=== PATIENT | male | born 1955 | race African-American/Black ===

== ENCOUNTER 2017-04-29 12:16 | Emergency (ER) | payer MEDICAID ==
[~2017-04-29] VITALS: Ht 185.4 cm; Wt 90.7 kg
[~2017-04-29 12:16] MED LIST: CLON0.2T PO; DIPH50CA PO; FUR40T PO; HYDROCODON-ACETAMINOPHN PO; IBUP800T24 PO; LOSA100T33 PO; METO-158 PO
[2017-04-29] MEDS ORDERED: SODIUM CHLORIDE 0.9% 1,000 ML IV ONE ×2 (12:54)
[2017-04-29] MEDS ORDERED: chlorproMAZINE INECTION 25 MG in SODIUM CHL 0.9% 50 ML IV SCH (14:00)
[2017-04-29 14:14] LABS: Basophils # (auto) 0 uL; Basophils % (auto) 0.2 % (0.0-2.0); Eosinophils # (auto) 0 uL; Eosinophils % (auto) 0.4 % (0.0-7.0); Hematocrit 43.6 % (41.0-53.0); Hemoglobin 14.4 g/dL (13.5-17.5); Lymphocytes # (auto) 0.8 uL; Lymphocytes % (auto) 11.8 % (10.0-50.0); Mean Corpuscular Hemoglobin 30.5 pg (28.0-32.0); Mean Corpuscular Volume 92.5 fL (80.0-100.0); Monocytes # (auto) 0.8 uL; Monocytes % (auto) 12.5 % (0.0-12.0); Neutrophils # (auto) 4.8 uL; Neutrophils % (auto) 75.1 % (37.0-80.0); Platelet Count (auto) 216 10^3/uL (140-450); Red Blood Cells 4.71 10^6/uL (4.5-5.90); White Blood Cell 6.4 10^3/uL (4.4-10.8)
[2017-04-29 15:00] LABS: Alanine Aminotransferase 26 U/L (16-61); Albumin 3.3 g/dL (3.4-5.0); Alkaline Phosphatase 88 U/L (45-117); Anion Gap 11 (5-15); Aspartate Aminotransferase 25 U/L (15-37); BUN/Creatinine Ratio 16.7; Bilirubin, Total 0.5 mg/dL (0.2-1.0); Blood Urea Nitrogen 20 mg/dL (7-18); Calcium 8.4 mg/dL (8.5-10.1); Carbon Dioxide 23 mmol/L (21-32); Chloride 107 mmol/L (98-107); GFR African American 80 mL/min; GFR Non-African American 66 mL/min; Glucose 79 mg/dL (74-106); Magnesium 2.2 mg/dL (1.6-2.6); Potassium 3.6 mmol/L (3.5-5.1); Sodium 141 mmol/L (136-145); Total Protein 7.7 g/dL (6.4-8.2)
[2017-04-29] MEDS ORDERED: chlorproMAZINE HCL 25 MG TAB PO ONE (16:30)
[2017-04-29] MEDS ORDERED: LABETALOL HCL 200 MG TAB PO ONE (17:15)
[2017-04-29 17:51] VITALS: BP 157/87
== END 2017-04-29 17:59 | disposition home or self-care (01) ==
LOC: ER 12:16 → EDBD 12:16 → ER 17:59
DX: G40.909 Epilepsy, unspecified, not intractable, without status epilepticus (principal); E86.0 Dehydration; R00.0 Tachycardia, unspecified; R51 Headache; I12.9 Hypertensive chronic kidney disease with stage 1 through stage 4 chronic kidney disease, or unspecified chronic kidney disease; N18.9 Chronic kidney disease, unspecified; E78.5 Hyperlipidemia, unspecified; Z86.73 Personal history of transient ischemic attack (TIA), and cerebral infarction without residual deficits
CPT/HCPCS: 36415; 70450; 71045; 80053; 83605; 83735; 84484; 85025; 87040; 93005; 99285; J3230; J7030; Q0161

== ENCOUNTER 2017-04-29 22:04 | Emergency (ER) | payer MEDICAID ==
[~2017-04-29] VITALS: Ht 180.3 cm; Wt 81.6 kg
[2017-04-29 23:17] LABS: Basophils # (auto) 0 uL; Basophils % (auto) 0.3 % (0.0-2.0); Eosinophils # (auto) 0 uL; Eosinophils % (auto) 0.6 % (0.0-7.0); Hematocrit 42.8 % (41.0-53.0); Hemoglobin 14.2 g/dL (13.5-17.5); Lymphocytes # (auto) 0.7 uL; Lymphocytes % (auto) 11.8 % (10.0-50.0); Mean Corpuscular Hemoglobin 30.9 pg (28.0-32.0); Mean Corpuscular Hgb Conc. 33.2 g/dL (32.0-36.0); Mean Corpuscular Volume 93.1 fL (80.0-100.0); Monocytes # (auto) 0.7 uL; Monocytes % (auto) 10.7 % (0.0-12.0); Neutrophils # (auto) 4.7 uL; Neutrophils % (auto) 76.6 % (37.0-80.0); Platelet Count (auto) 223 10^3/uL (140-450); Red Cell Distribution Width 14.7 % (11.8-14.3); White Blood Cell 6.2 10^3/uL (4.4-10.8)
[2017-04-29 23:26] LABS: Alanine Aminotransferase 27 U/L (16-61); Albumin 3.2 g/dL (3.4-5.0); Alkaline Phosphatase 87 U/L (45-117); Anion Gap 8 (5-15); Aspartate Aminotransferase 40 U/L (15-37); BUN/Creatinine Ratio 14.9; Bilirubin, Total 0.8 mg/dL (0.2-1.0); Blood Urea Nitrogen 18 mg/dL (7-18); Calcium 8.8 mg/dL (8.5-10.1); Carbon Dioxide 24 mmol/L (21-32); Chloride 105 mmol/L (98-107); GFR African American 79 mL/min; GFR Non-African American 65 mL/min; Glucose 97 mg/dL (74-106); Magnesium 2.3 mg/dL (1.6-2.6); Potassium 4.9 mmol/L (3.5-5.1); Sodium 137 mmol/L (136-145); Total Protein 8.6 g/dL (6.4-8.2)
[2017-04-29 23:59] LABS: INR 1.05 (0.9-1.15); Partial Thromboplastin Time 26.2 sec (22.64-33.71); Prothrombin Time 11.4 sec (9.37-12.3)
[2017-04-30 03:30] VITALS: BP 147/82
== END 2017-04-30 05:30 | disposition home or self-care (01) ==
LOC: EDSEX 22:04 → ER 22:04 → EDBD 22:04 → ER 04-30 05:30
DX: R55 Syncope and collapse (principal); M54.2 Cervicalgia; R51 Headache; I12.9 Hypertensive chronic kidney disease with stage 1 through stage 4 chronic kidney disease, or unspecified chronic kidney disease; N18.9 Chronic kidney disease, unspecified; Z86.73 Personal history of transient ischemic attack (TIA), and cerebral infarction without residual deficits; Z88.1 Allergy status to other antibiotic agents
CPT/HCPCS: 36415; 70450; 72125; 80053; 83735; 83880; 84484; 85025; 85610; 85730; 93005

== ENCOUNTER 2018-01-29 11:35 | Inpatient (IN) | payer MEDICAID ==
[~2018-01-29] VITALS: Ht 175.3 cm; Wt 67.8 kg
[2018-01-29 12:18] LABS: Basophils # (auto) 0 uL; Basophils % (auto) 0.5 % (0.0-2.0); Eosinophils # (auto) 0 uL; Eosinophils % (auto) 0.4 % (0.0-7.0); Hematocrit 48.1 % (41.0-53.0); Hemoglobin 15.8 g/dL (13.5-17.5); Lymphocytes # (auto) 1.2 uL; Lymphocytes % (auto) 14.5 % (10.0-50.0); Mean Corpuscular Hemoglobin 30.9 pg (28.0-32.0); Mean Corpuscular Hgb Conc. 32.8 g/dL (32.0-36.0); Mean Corpuscular Volume 94.3 fL (80.0-100.0); Monocytes # (auto) 0.6 uL; Monocytes % (auto) 6.8 % (0.0-12.0); Neutrophils # (auto) 6.6 uL; Neutrophils % (auto) 77.8 % (37.0-80.0); Platelet Count (auto) 265 10^3/uL (140-450); Red Cell Distribution Width 15.5 % (11.8-14.3); White Blood Cell 8.5 10^3/uL (4.4-10.8)
[2018-01-29 12:30] LABS: Albumin 4.2 g/dL (3.4-5.0); Anion Gap 11 (5-15); BUN/Creatinine Ratio 15.3; Blood Urea Nitrogen 22 mg/dL (7-18); Calcium 9.5 mg/dL (8.5-10.1); Carbon Dioxide 27 mmol/L (21-32); Chloride 103 mmol/L (98-107); GFR African American 64 mL/min; GFR Non-African American 53 mL/min; Glucose 82 mg/dL (74-106); Potassium 3.4 mmol/L (3.5-5.1); Sodium 141 mmol/L (136-145)
[2018-01-29 12:38] LABS: Alanine Aminotransferase 40 U/L (16-61); Alkaline Phosphatase 103 U/L (45-117); Aspartate Aminotransferase 39 U/L (15-37); Bilirubin, Total 0.6 mg/dL (0.2-1.0); Total Protein 9.8 g/dL (6.4-8.2)
[2018-01-29] MEDS ORDERED: ASPirin 81 mg TAB PO ONE (14:45)
[2018-01-29] MEDS ORDERED: cloNIDine HCL 0.1 MG TAB PO ONE (15:00)
[2018-01-29 15:24] LABS: INR 1.07 (0.9-1.15); Partial Thromboplastin Time 27.8 sec (23.78-33.04); Prothrombin Time 11.4 sec (9.27-12.13)
[2018-01-29] MEDS ORDERED: hydrALAZINE HCL 20 MG/ML VL IV ONE (17:00)
[2018-01-29] MEDS ORDERED: LABETALOL HCL 5 MG/ML ML 20ML VIAL IV ONE (17:15)
[2018-01-29] MEDS ORDERED: TEMAZEPAM 15 MG CAP PO PRN (17:45)
[2018-01-29] MEDS ORDERED: NITROGLYCERIN 0.4 MG SL TAB SL PRN (17:45)
[2018-01-29] MEDS ORDERED: LORazepam 0.5 MG TAB PO PRN (17:45)
[2018-01-29] MEDS ORDERED: HYDROcodone-ACET 5/325MG TAB PO PRN (17:45)
[2018-01-29] MEDS ORDERED: MORPHINE SULFATE 4 MG/ML SYR/VIAL IV PRN ×2 (17:45)
[2018-01-29] MEDS ORDERED: LACTULOSE 20Gm/30ML SOLN PO PRN (17:45)
[2018-01-29] MEDS ORDERED: ONDANSETRON HCL 4 MG/2 ML VIAL IV PRN (17:45)
[2018-01-29] MEDS ORDERED: IOHEXOL 350 MG/ML 100ML IJ ONE (18:24)
[2018-01-29 18:54] LABS: Urine Amorphous Crystal FEW /hpf (None Seen); Urine Bacteria FEW /hpf (None Seen); Urine Blood Negative /uL (Negative); Urine Mucus FEW (None Seen); Urine Specific Gravity 1.018 (1.001-1.035); Urine WBC 4 /hpf (0 - 3)
[2018-01-29 19:05] LABS: Alcohol, Urine < 3.0 mg/dL (0-5); Amphetamine Screen, Urine NEGATIVE (NEGATIVE); Barbiturate Scree,Urine NEGATIVE (NEGATIVE); Benzodiazephine Screen, Urine NEGATIVE (NEGATIVE); Cannabinoid Screen, Urine NEGATIVE (NEGATIVE); Cocaine Screen, Urine NEGATIVE (NEGATIVE); Opiate Scree,Urine NEGATIVE (NEGATIVE); Phencyclidine Screen, Urine NEGATIVE (NEGATIVE)
[2018-01-29] MEDS: METOPROLOL TARTRATE 50 MG TAB PO SCH ×2 (19:13→21:56)
[2018-01-29] MEDS: SODIUM CHLORIDE 0.9% 1,000 ML IV SCH (19:16)
[2018-01-29] MEDS: SODIUM CHLOR 0.9% PF (SALINE LOCK) 10ML VIAL/SYR IV SCH (21:56)
[2018-01-29] MEDS: ATORVASTATIN 20 MG TAB PO SCH (21:56)
[2018-01-29] MEDS: cloNIDine HCL 0.1 MG TAB PO SCH (21:56)
[2018-01-29 22:30] VITALS: BP 140/97
[2018-01-29 23:20] VITALS: BP 140/97
[2018-01-30 05:00] VITALS: BP 149/90
[2018-01-30] MEDS: SODIUM CHLOR 0.9% PF (SALINE LOCK) 10ML VIAL/SYR IV SCH ×3 (06:06→22:30)
[2018-01-30] MEDS: cloNIDine HCL 0.1 MG TAB PO SCH ×3 (06:11→22:32)
[2018-01-30 06:22] LABS: Calcium 8.6 mg/dL (8.5-10.1); Potassium 3.7 mmol/L (3.5-5.1)
[2018-01-30 06:26] LABS: Bilirubin, Total 0.5 mg/dL (0.2-1.0); Total Protein 7.5 g/dL (6.4-8.2)
[2018-01-30] MEDS: SODIUM CHLORIDE 0.9% 1,000 ML IV SCH ×2 (06:57→20:12)
[2018-01-30 07:45] VITALS: BP 132/81
[2018-01-30] MEDS ORDERED: ENALAPRIL MALEATE 10 MG TAB PO SCH (10:00)
[2018-01-30] MEDS ORDERED: PATIENTS OWN MEDICATION (Losartan Potassium & Hydrochlo (Losartan Potassium/Hydroc) 1 TAB) PO SCH (10:00)
[2018-01-30] MEDS: ASPirin 81 mg TAB PO SCH (11:10)
[2018-01-30] MEDS: PANTOPRAZOLE 40 MG TAB PO SCH (11:11)
[2018-01-30] MEDS: ENOXAPARIN SOD 40 MG/0.4 ML SYRINGE SC SCH (11:17)
[2018-01-30] MEDS: METOPROLOL TARTRATE 50 MG TAB PO SCH ×2 (11:20→22:33)
[2018-01-30] MEDS ORDERED: IOHEXOL 350 MG/ML 100ML IJ ONE (12:11)
[2018-01-30 12:13] VITALS: BP 158/102
[2018-01-30] MEDS ORDERED: TRAM50TA2 (12:40)
[2018-01-30] MEDS ORDERED: MET50T (12:40)
[2018-01-30] MEDS ORDERED: DIPH25CA46 (12:40)
[2018-01-30] MEDS: ACETAMINOPHEN 500 MG TAB PO PRN (14:22)
[2018-01-30 17:00] VITALS: BP 128/81
[2018-01-30 20:20] VITALS: BP 126/77
[2018-01-30 21:24] VITALS: BP 126/77
[2018-01-30] MEDS: ATORVASTATIN 20 MG TAB PO SCH (22:32)
[2018-01-31 04:54] VITALS: BP 110/61
[2018-01-31] MEDS ORDERED: INFLUENZA QUAD 2018-2019 0.5 ML SYRG IM ONE (05:45)
[2018-01-31] MEDS: SODIUM CHLOR 0.9% PF (SALINE LOCK) 10ML VIAL/SYR IV SCH ×3 (06:17→22:09)
[2018-01-31] MEDS: cloNIDine HCL 0.1 MG TAB PO SCH ×3 (06:19→22:11)
[2018-01-31] MEDS: SODIUM CHLORIDE 0.9% 1,000 ML IV SCH ×2 (06:25→22:52)
[2018-01-31 08:57] VITALS: BP 113/77
[2018-01-31] MEDS: LOSARTAN POTASSIUM 50 MG TAB PO SCH (10:00)
[2018-01-31] MEDS: PANTOPRAZOLE 40 MG TAB PO SCH (10:39)
[2018-01-31] MEDS: ASPirin 81 mg TAB PO SCH (10:39)
[2018-01-31] MEDS: METOPROLOL TARTRATE 50 MG TAB PO SCH ×2 (10:40→22:12)
[2018-01-31] MEDS: ENOXAPARIN SOD 40 MG/0.4 ML SYRINGE SC SCH (10:41)
[2018-01-31] MEDS: ACETAMINOPHEN 500 MG TAB PO PRN (11:38)
[2018-01-31 12:55] VITALS: BP 118/79
[2018-01-31 17:21] VITALS: BP 135/78
[2018-01-31 18:00] VITALS: BP 160/95
[2018-01-31 22:00] VITALS: BP 160/95
[2018-01-31] MEDS: ATORVASTATIN 20 MG TAB PO SCH (22:11)
[2018-02-01 05:02] VITALS: BP 147/92
[2018-02-01] MEDS: cloNIDine HCL 0.1 MG TAB PO SCH ×2 (06:17→14:00)
[2018-02-01] MEDS: SODIUM CHLOR 0.9% PF (SALINE LOCK) 10ML VIAL/SYR IV SCH ×2 (06:17→14:00)
[2018-02-01 07:43] VITALS: BP 139/85
[2018-02-01] MEDS: LOSARTAN POTASSIUM 50 MG TAB PO SCH (10:00)
[2018-02-01] MEDS: ENOXAPARIN SOD 40 MG/0.4 ML SYRINGE SC SCH (10:17)
[2018-02-01] MEDS: PANTOPRAZOLE 40 MG TAB PO SCH (10:18)
[2018-02-01] MEDS: ASPirin 81 mg TAB PO SCH (10:18)
[2018-02-01] MEDS: ACETAMINOPHEN 500 MG TAB PO PRN (10:18)
[2018-02-01] MEDS: METOPROLOL TARTRATE 50 MG TAB PO SCH (10:18)
[2018-02-01 11:41] VITALS: BP 169/85
[2018-02-01] MEDS: SODIUM CHLORIDE 0.9% 1,000 ML IV SCH (12:12)
[2018-02-01 15:22] VITALS: BP 139/85
[2018-02-01 15:32] VITALS: BP 139/85
[2018-02-01 16:50] VITALS: BP 156/93
== END 2018-02-01 16:42 | disposition home or self-care (01) | DRG 351 ==
LOC: ER 11:35 → EDBD 11:35 → TELE 11:36 → TELE-EAST 22:19
PROVIDERS: ADMIT Internal Medicine; ATTEND Internal Medicine Pulmonary Disease
DX: M79.18 Myalgia, other site (principal); R56.9 Unspecified convulsions; E44.1 Mild protein-calorie malnutrition; I16.0 Hypertensive urgency; I69.351 Hemiplegia and hemiparesis following cerebral infarction affecting right dominant side; E78.5 Hyperlipidemia, unspecified; I10 Essential (primary) hypertension; Z82.49 Family history of ischemic heart disease and other diseases of the circulatory system; Z91.14 Patient's other noncompliance with medication regimen; Z88.8 Allergy status to other drugs, medicaments and biological substances; Z68.22 Body mass index [BMI] 22.0-22.9, adult
CPT/HCPCS: 36415; 70450; 71045; 71275; 80053; 80061; 80307; 81001; 82550; 83735; 83880; 84443; 84484; 85025; 85379; 85610; 85652; 85730; 86141; 87081; 93005; 93306; 96360; 97110; 97116; 97163; 97530

== ENCOUNTER 2018-10-22 00:44 | Inpatient (IN) | payer MEDICAID ==
[~2018-10-22] VITALS: Ht 175.3 cm; Wt 71.0 kg
[~2018-10-22 00:44] MED LIST changes: +DIPH25CA46; -IBUP800T24 PO; -METO-158 PO; +TRAM50TA2
[2018-10-22 01:52] LABS: Basophils # (auto) 0 uL; Basophils % (auto) 0.5 % (0.0-2.0); Eosinophils # (auto) 0.1 uL; Eosinophils % (auto) 1.1 % (0.0-7.0); Hematocrit 39.6 % (41.0-53.0); Hemoglobin 13.1 g/dL (13.5-17.5); Lymphocytes # (auto) 0.8 uL; Lymphocytes % (auto) 12.5 % (10.0-50.0); Mean Corpuscular Hemoglobin 31.1 pg (28.0-32.0); Mean Corpuscular Hgb Conc. 33.1 g/dL (32.0-36.0); Mean Corpuscular Volume 93.8 fL (80.0-100.0); Monocytes # (auto) 0.6 uL; Monocytes % (auto) 9.5 % (0.0-12.0); Neutrophils # (auto) 5.1 uL; Neutrophils % (auto) 76.4 % (37.0-80.0); Platelet Count (auto) 184 10^3/uL (140-450); Red Blood Cells 4.22 10^6/uL (4.5-5.90); White Blood Cell 6.7 10^3/uL (4.4-10.8)
[2018-10-22 02:11] LABS: Albumin 3.2 g/dL (3.4-5.0); Anion Gap 12 (5-15); BUN/Creatinine Ratio 16.1; Blood Urea Nitrogen 24 mg/dL (7-18); Calcium 8.8 mg/dL (8.5-10.1); Carbon Dioxide 24 mmol/L (21-32); Chloride 107 mmol/L (98-107); GFR African American 62 mL/min; GFR Non-African American 51 mL/min; Glucose 79 mg/dL (74-106); Magnesium 1.9 mg/dL (1.6-2.6); Sodium 143 mmol/L (136-145)
[2018-10-22 02:16] LABS: Alanine Aminotransferase 22 U/L (16-61); Alkaline Phosphatase 83 U/L (45-117); Aspartate Aminotransferase 32 U/L (15-37); Bilirubin, Total 0.5 mg/dL (0.2-1.0); Total Protein 7.7 g/dL (6.4-8.2)
[2018-10-22 02:26] LABS: Potassium 2.9 mmol/L (3.5-5.1)
[2018-10-22] MEDS ORDERED: POTASSIUM EFFERVESENT TAB 25 MEQ PO ONE (04:45)
[2018-10-22 07:17] LABS: Urine WBC None Seen /hpf (0 - 3)
[2018-10-22 07:52] LABS: Urine Bacteria MANY /hpf (None Seen); Urine Blood TRACE /uL (Negative); Urine Mucus FEW (None Seen); Urine Specific Gravity 1.026 (1.001-1.035)
[2018-10-22] MEDS ORDERED: MORPHINE SULF INJ 2 MG/ML SYRINGE 1ML IV ONE (11:00)
[2018-10-22] MEDS ORDERED: ONDANSETRON HCL 4 MG/2 ML VIAL IV ONE (11:00)
[2018-10-22] MEDS ORDERED: ALBUTEROL SULF 2.5 MG/0.5ML(0.5%) NEB SOLN NEB PRN (11:30)
[2018-10-22] MEDS ORDERED: ACETAMINOPHEN 500 MG TAB PO PRN (11:30)
[2018-10-22] MEDS ORDERED: NITROGLYCERIN 0.4 MG SL TAB SL PRN (11:30)
[2018-10-22] MEDS ORDERED: IPRATROPIUM BROM 0.5 MG/2.5ML INH SOL NEB PRN (11:30)
[2018-10-22] MEDS ORDERED: ONDANSETRON HCL 4 MG/2 ML VIAL IV PRN (11:30)
[2018-10-22] MEDS ORDERED: MORPHINE SULF INJ 2 MG/ML SYRINGE 1ML IV PRN ×2 (11:30)
[2018-10-22] MEDS: cefTRIAXone 1GM/50ML D5W 50 ML IV SCH (11:57)
[2018-10-22] MEDS: SODIUM CHLORIDE 0.9% 1,000 ML IV SCH ×2 (11:57→21:31)
[2018-10-22] MEDS: ENSURE CLEAR Mixed Berry 8oz Carton PO SCH ×2 (12:00→18:05)
[2018-10-22 12:41] LABS: INR 1.06 (0.9-1.15); Partial Thromboplastin Time 29.5 sec (23.64-32.05)
--- NOTE | 2018-10-22 13:50 | NUR ---
PATIENT ARRIVED TO UNIT PATIENT ALERT AND ORIENTED WITH PERIODS OF CONFUSION IN REGARDS TO COMPREHENSION. POOR HISTORIAN. ORIENTED PATIENT TO UNIT, STAFF, CALL LIGHT AND POC. WILL CONTINUE TO MONITOR PATIENT AND RE ORIENT, WELL RE ENFORCE TEACHING. PATIENT DENIES PAIN, SOB OR ANY DISTRESS AT THIS TIME. WILL CONTINUE TO MONITOR
[2018-10-22 15:36] VITALS: BP 139/79
--- NOTE | 2018-10-22 15:53 | NUR ---
PAIGE MADE AWARE POTASSIUM 2.9.
--- NOTE | 2018-10-22 16:13 | NUR ---
ASSESSED PT FOR PRN MED NEB BREATHING TX, PT ON RA WITH A SPO2 99%, HR 82, RR 16. NO SOB NOTED NO RESPIRATORY DISTRESS NOTED. PT MADE AWARE TO PAGE RN IF SOB. WILL CONTINUE TO MONITOR PT.
[2018-10-22] MEDS: hydrALAZINE HCL 20 MG/ML VL IV SCH ×2 (16:45→18:00)
[2018-10-22 16:48] VITALS: BP 139/86
--- NOTE | 2018-10-22 19:12 | NUR ---
END OF SHIFT NOTE PATIENT UP IN BED EATING. DENIES PAIN SOB OR ANY DISTRESS AT THIS TIME. BED IS IN LOWEST LOCKED POSITION CALL LIGHT WITHIN REACH ENDORSE CARE TO NOC RN
--- NOTE | 2018-10-22 21:20 | NUR ---
RT NOTE: PT ASSESSED FOR PRN MED NEB TX @ THIS TIME. TX NOT INDICATED. SPO02 98% ON 2L NASAL CANNULA, HR 96, DIMINISHED BS. NO SOB OR DISTRESS NOTED @ THIS TIME.
[2018-10-22] MEDS: HYDROcodone-ACET 5/325MG TAB PO PRN (21:32)
[2018-10-22] MEDS: DOCUSATE SOD 100 MG CAP PO SCH (21:32)
[2018-10-22 21:44] LABS: Alanine Aminotransferase 21 U/L (16-61); Albumin 2.6 g/dL (3.4-5.0); Anion Gap 11 (5-15); Aspartate Aminotransferase 39 U/L (15-37); BUN/Creatinine Ratio 17.3; Blood Urea Nitrogen 22 mg/dL (7-18); Calcium 7.9 mg/dL (8.5-10.1); Carbon Dioxide 22 mmol/L (21-32); Chloride 111 mmol/L (98-107); GFR African American 74 mL/min; GFR Non-African American 61 mL/min; Glucose 93 mg/dL (74-106); Potassium 3.4 mmol/L (3.5-5.1); Sodium 144 mmol/L (136-145)
[2018-10-22 21:46] LABS: Alkaline Phosphatase 72 U/L (45-117); Bilirubin, Total 0.2 mg/dL (0.2-1.0); Total Protein 6.7 g/dL (6.4-8.2)
[2018-10-22 22:00] VITALS: BP 126/86
--- NOTE | 2018-10-22 23:30 | NUR ---
RECEIVED A CALL FROM A FAMILY, ZACH
[2018-10-23] MEDS: SODIUM CHLORIDE 0.9% 1,000 ML IV SCH ×2 (03:05→17:22)
--- NOTE | 2018-10-23 04:00 | NUR ---
Pt stood up close to the bed, noted to be confused, assisted back on bed and turned on the bed alarm. Re-oriented.
[2018-10-23 05:00] VITALS: BP 140/85
--- NOTE | 2018-10-23 05:00 | NUR ---
Morning care done, linens and gown changed.
[2018-10-23] MEDS: hydrALAZINE HCL 20 MG/ML VL IV SCH ×5 (05:24→23:57)
[2018-10-23 07:20] LABS: Basophils # (auto) 0 uL; Basophils % (auto) 0.5 % (0.0-2.0); Eosinophils # (auto) 0.2 uL; Eosinophils % (auto) 3.6 % (0.0-7.0); Hematocrit 37.3 % (41.0-53.0); Hemoglobin 12.3 g/dL (13.5-17.5); Lymphocytes # (auto) 1.3 uL; Lymphocytes % (auto) 26.7 % (10.0-50.0); Mean Corpuscular Hgb Conc. 32.9 g/dL (32.0-36.0); Mean Corpuscular Volume 94.2 fL (80.0-100.0); Monocytes # (auto) 0.4 uL; Monocytes % (auto) 8.3 % (0.0-12.0); Neutrophils % (auto) 60.9 % (37.0-80.0); Nucleated Red Blood Cells % 0.1 %; Platelet Count (auto) 170 10^3/uL (140-450); Red Blood Cells 3.96 10^6/uL (4.5-5.90); Red Cell Distribution Width 16.8 % (11.8-14.3); White Blood Cell 4.9 10^3/uL (4.4-10.8)
[2018-10-23 07:28] LABS: Anion Gap 10 (5-15); Blood Urea Nitrogen 22 mg/dL (7-18); Calcium 8.3 mg/dL (8.5-10.1); Carbon Dioxide 22 mmol/L (21-32); Chloride 112 mmol/L (98-107); Glucose 82 mg/dL (74-106); Potassium 3.7 mmol/L (3.5-5.1); Sodium 144 mmol/L (136-145)
[2018-10-23 07:29] LABS: BUN/Creatinine Ratio 19.3; GFR African American 84 mL/min; GFR Non-African American 69 mL/min
[2018-10-23] MEDS: ENSURE CLEAR Mixed Berry 8oz Carton PO SCH ×3 (08:00→18:02)
[2018-10-23 08:39] VITALS: BP 136/79
[2018-10-23] MEDS: cefTRIAXone 1GM/50ML D5W 50 ML IV SCH (09:10)
[2018-10-23] MEDS: HYDROCHLOROTHIAZIDE PO SCH (10:00)
[2018-10-23] MEDS: LOSARTAN POTASSIUM PO SCH (10:00)
[2018-10-23] MEDS: ENOXAPARIN SOD 40 MG/0.4 ML SYRINGE SC SCH (11:01)
[2018-10-23] MEDS: MULTIPLE VITAMIN TAB PO SCH (11:01)
[2018-10-23] MEDS: DOCUSATE SOD 100 MG CAP PO SCH ×2 (11:01→21:54)
[2018-10-23] MEDS: FAMOTIDINE 20 MG TAB PO SCH (11:01)
[2018-10-23 17:16] VITALS: BP 146/79
[2018-10-23 22:00] VITALS: BP 129/76
--- NOTE | 2018-10-23 22:23 | NUR ---
Respiratory note: ASSESSED PT FOR PRN MED NEB AT THIS TIME, PT DENIES SOB AT THIS TIME, NO RESP DISTRESS NOTED, NO TX INDICATED, PULSE OX 98% ON RA, HR 112, RR 18, BILATERAL BS CLEAR DECREASED.
[2018-10-24 05:00] VITALS: BP 148/94
[2018-10-24 05:40] LABS: BUN/Creatinine Ratio 16.2; Calcium 8.7 mg/dL (8.5-10.1); Potassium 3.2 mmol/L (3.5-5.1)
[2018-10-24] MEDS: hydrALAZINE HCL 20 MG/ML VL IV SCH ×3 (06:38→17:25)
[2018-10-24] MEDS: SODIUM CHLORIDE 0.9% 1,000 ML IV SCH ×2 (06:41→12:52)
[2018-10-24] MEDS: ENSURE CLEAR Mixed Berry 8oz Carton PO SCH ×3 (07:48→17:25)
--- NOTE | 2018-10-24 08:00 | NUR ---
Opening Shift Note Assumed care of patient, resting with eyes closes but wakes easily to sound. No S/S of distress/SOB or pain. Instructed on POC and to call for assist PRN, will continue to monitor for changes Q1hr and PRN.
[2018-10-24] MEDS: cefTRIAXone 1GM/50ML D5W 50 ML IV SCH (08:57)
[2018-10-24 09:00] VITALS: BP 153/99
[2018-10-24] MEDS: FAMOTIDINE 20 MG TAB PO SCH (09:48)
[2018-10-24] MEDS: ENOXAPARIN SOD 40 MG/0.4 ML SYRINGE SC SCH (09:48)
[2018-10-24] MEDS: HYDROCHLOROTHIAZIDE PO SCH (09:49)
[2018-10-24] MEDS: LOSARTAN POTASSIUM PO SCH (09:49)
[2018-10-24] MEDS: DOCUSATE SOD 100 MG CAP PO SCH ×2 (09:49→21:22)
[2018-10-24] MEDS: MULTIPLE VITAMIN TAB PO SCH (09:49)
[2018-10-24] MEDS: HYDROcodone-ACET 5/325MG TAB PO PRN ×2 (10:48→17:07)
[2018-10-24 13:00] VITALS: BP 143/101
--- NOTE | 2018-10-24 14:43 | NUR ---
Respiratory note: PT ASSESSED FOR PRN MED NEB TX. TX IS NOT INDICATED AT THIS TIME. NO SOB NOTED ON RA, POX 99%, HR 129, RR 16. B/S ARE CLEAR AND DIMINISHED THROUGHOUT.
[2018-10-24] MEDS ORDERED: POTASSIUM CHL 20 Meq TABLET PO ONE (15:30)
--- NOTE | 2018-10-24 16:41 | NUR ---
I faxed home health order to [facility] (phone # [phone]---fax number [phone]) requesting authorization for [facility].
--- NOTE | 2018-10-24 16:45 | NUR ---
Per consult for home health safety evaluation. Contacted [facility] Ph: ( [phone]) Fax: ) faxed medical records. Per Rosie pt has been accepted and service to start within 4hrs upon d/c. Informed EFRAÍN Peraza for authorization for [facility] Addendum: 10/24/18 at 1647 by MARCELINA HERMAN Amended: Links added.
[2018-10-24 17:00] VITALS: BP 142/104
--- NOTE | 2018-10-24 19:50 | NUR ---
OPENING NOTE ASSUMED PT CARE FROM DAY SHIFT NURSE. PT IS A/OX2-3, DEFICIENT TO SITUATION AT TIMES. PT IS QUIETLY LAYING IN BED WITH NO S/S OF DISTRESS OR SOB. DISCUSSED POC WITH PT. SAFETY MEASURES MAINTAINED WITH SIDE RAILS UP, BED IN LOWEST POSITION AND CALL LIGHT WITHIN REACH. WILL CONTINUE TO MONITOR FOR CHANGES Q1HR AND PRN.
--- NOTE | 2018-10-24 20:55 | NUR ---
HIGH BP PHYSICAL SCIENCE TEACHER ALERTED ME THAT PTS BP WAS 165/111 AND STATED THAT HE WAS IN SOME PAIN. ADMINISTERED AVAILABLE PAIN MEDICATION TO PT TO SEE IF THE ELEVATED BP WAS R/T THE PAIN. WILL REASSESS.
--- NOTE | 2018-10-24 21:45 | NUR ---
RECHECK BP BLOOD PRESSURE AT THIS TIME IS STILL ELEVATED; 159/107 UPON TAKING IT MANUALLY. PAGED HOSPITALIST
[2018-10-24 22:00] VITALS: BP 165/111
--- NOTE | 2018-10-24 22:50 | NUR ---
HOSPITALIST CALLED BACK GAVE ORDERS, READ BACK AND VERIFIED ORDERS, IMPUTED ORDERS. WILL FOLLOW THROUGH WITH GIVEN ORDERS
[2018-10-24] MEDS ORDERED: METOPROLOL TARTRATE 1MG/1ML-5ML VIAL IV ONE (23:00)
[2018-10-25] MEDS: hydrALAZINE HCL 20 MG/ML VL IV SCH ×3 (00:31→12:10)
[2018-10-25] MEDS: HYDROcodone-ACET 5/325MG TAB PO PRN (01:33)
[2018-10-25 05:00] VITALS: BP 153/109
--- NOTE | 2018-10-25 07:09 | NUR ---
CLOSING NOTE CARE ENDORSED TO DAY SHIFT NURSE SUMMER. PT IS IN BED WITH NO S/S OF DISTRESS OR SOB.
--- NOTE | 2018-10-25 07:15 | NUR ---
Opening Note Received report from retail shift leader RN. Patient is resting in bed, easy to wake by calling name. No signs or symptoms of distress noted at this time. Patient denies pain at this time. Patient on room air, respirations even and unlabored. Reviewed plan of care with patient, patient verbalized understanding. Bed in low and locked position, call light within reach. Will continue to monitor Q1 hour and PRN.
--- NOTE | 2018-10-25 08:41 | NUR ---
Respiratory note: ASSESSED PT FOR PRN TX PT WAS AWAKE AND ALERT SITTING AT THE EDGE OF THE BED, NO RESP DISTRESS NOTED. HR 121, RR 16, SPO2 97% ON ROOM AIR. BS ARE CLEAR T/O, NO INDICATION FOR TX AT THIS TIME. PT KNOWS TO HAVE RT PAGED IF TX IS NEEDED.
[2018-10-25 09:00] VITALS: BP 144/80
[2018-10-25] MEDS: cefTRIAXone 1GM/50ML D5W 50 ML IV SCH (09:51)
[2018-10-25] MEDS: FAMOTIDINE 20 MG TAB PO SCH (09:52)
[2018-10-25] MEDS: MULTIPLE VITAMIN TAB PO SCH (09:52)
[2018-10-25] MEDS: DOCUSATE SOD 100 MG CAP PO SCH ×2 (09:52→21:34)
[2018-10-25] MEDS: ENOXAPARIN SOD 40 MG/0.4 ML SYRINGE SC SCH (09:53)
[2018-10-25] MEDS: ENSURE CLEAR Mixed Berry 8oz Carton PO SCH ×3 (09:53→17:14)
[2018-10-25] MEDS ORDERED: LOSARTAN POTASSIUM 25 MG TAB PO SCH (10:00)
[2018-10-25] MEDS: METOPROLOL SUCCINATE XL 50 MG TAB PO SCH (10:00)
--- NOTE | 2018-10-25 10:10 | NUR ---
Patient ambulated with PT Patient ambulated in hallway with physical therapy, standby assist with cane. Patient tolerated well.
[2018-10-25 11:05] LABS: BUN/Creatinine Ratio 14.2; Calcium 9.7 mg/dL (8.5-10.1); Magnesium 2.1 mg/dL (1.6-2.6); Potassium 3.9 mmol/L (3.5-5.1)
--- NOTE | 2018-10-25 12:40 | NUR ---
Nutrition Assessment Notes please see attached link for complete assessment Est. Needs BW [id number] kcal (25-30 kcal/kgBW), 68-81 gms pro (1.0-1.2 gms/kgBW). Will continue to monitor pertinent labs and reassess nutrient need prn Addendum: 10/25/18 at [address] Amended: Links added.
[2018-10-25 13:00] VITALS: BP 140/84
--- NOTE | 2018-10-25 13:05 | NUR ---
Patient removed IV Patient states he accidently pulled out his IV from the left hand. Area cleaned and pressure dressing applied. Will start a new IV. Will continue to monitor Q1 hour and PRN.
[2018-10-25 13:11] VITALS: BP 161/92
--- NOTE | 2018-10-25 13:59 | NUR ---
IV insertion IV access obtained, via clean sterile technique by inserting 24 gauge catheter at after one attempt to the right wrist. IV secured properly. No trauma to site. Patient tolerated procedure well. Will continue to monitor Q1 hour and PRN.
[2018-10-25] MEDS ORDERED: MORPHINE SULF INJ 2 MG/ML SYRINGE 1ML IV PRN ×3 (14:30→14:45)
[2018-10-25] MEDS ORDERED: HYDROcodone-ACET 5/325MG TAB PO PRN (14:30)
--- NOTE | 2018-10-25 15:10 | NUR ---
Report given to Falvio JORGE. New orders received to place patient on monitor technician. Care endorsed.
[2018-10-25 17:00] VITALS: BP 159/96
[2018-10-25 19:11] LABS: Urine Bacteria NONE SEEN /hpf (None Seen); Urine Blood Negative /uL (Negative); Urine WBC 2 /hpf (0 - 3)
--- NOTE | 2018-10-25 19:50 | NUR ---
Respiratory note: PT RECIEVED ON RA. PT AWAKE AND ALERT AT THIS TIME. NO RESP DISTRESS NOTED. SPO2 96%, HR 109, RR 20. BS CLR T/O. NO PRN TX INDICATED AT THIS TIME.
--- NOTE | 2018-10-25 19:55 | NUR ---
RECEIVED PATIENT FROM DAY SHIFT RN. PATIENT SITTING AT THE SIDE OF BED. NO S/S OF DISTRESS NOTED. DENIED PAIN FOR NOW. POC INSTRUCTED AND ENCOURAGED PATIENT TO CALL FOR VISUAL EFFECTS EDITOR IF NEEDED. BED IN LOWEST POSITION WITH SIDE RAILS UP X 2. CALL BRYANT WITHIN REACH. ALARM ON. CONTINUE TO MONITOR FOR CHANGES Q1H AND PRN.
[2018-10-25] MEDS: cloNIDine HCL 0.1 MG TAB PO SCH (21:34)
[2018-10-25] MEDS: SODIUM CHLOR 0.9% PF (SALINE LOCK) 10ML VIAL/SYR IV SCH (21:34)
--- NOTE | 2018-10-25 21:40 | NUR ---
ORAL MEDICATION GIVEN ORDERED. PATIENT SWALLOWED WELL. NO S/S OF ASPIRATION NOTED. CONTINUE TO MONITOR.
--- NOTE | 2018-10-25 21:58 | NUR ---
SIDE RAILS PADDED NOW. CONTINUE CARE.
[2018-10-25 22:15] VITALS: BP 149/110
--- NOTE | 2018-10-25 22:32 | NUR ---
REASSESSED BP 119/69, HR 65. CONTINUE TO MONITOR.
--- NOTE | 2018-10-26 01:33 | NUR ---
PATIENT SLEEPING. NO S/S OF DISTRESS NOTED. CONTINUE CARE.
[2018-10-26 05:38] VITALS: BP 125/83
[2018-10-26] MEDS: cloNIDine HCL 0.1 MG TAB PO SCH ×3 (06:20→21:31)
[2018-10-26] MEDS: SODIUM CHLOR 0.9% PF (SALINE LOCK) 10ML VIAL/SYR IV SCH ×3 (06:20→21:31)
[2018-10-26] MEDS: ENSURE CLEAR Mixed Berry 8oz Carton PO SCH ×3 (08:00→17:53)
--- NOTE | 2018-10-26 08:23 | NUR ---
ASSESSED PT FOR PRN TX. HR 74, SPO2 97% RA BSC T/O, RR 16. PATIENT ASLEEP WITH NO RESP DISTRESS NOTED. PRN TX NOT INDICATED AT THIS TIME.
[2018-10-26 09:00] VITALS: BP 131/76
[2018-10-26] MEDS: cefTRIAXone 1GM/50ML D5W 50 ML IV SCH (09:34)
[2018-10-26] MEDS: METOPROLOL SUCCINATE XL 50 MG TAB PO SCH (09:36)
[2018-10-26] MEDS: ENOXAPARIN SOD 40 MG/0.4 ML SYRINGE SC SCH (09:37)
[2018-10-26] MEDS: MULTIPLE VITAMIN TAB PO SCH (09:38)
[2018-10-26] MEDS: LOSARTAN POTASSIUM 50 MG TAB PO SCH (09:38)
[2018-10-26] MEDS: FAMOTIDINE 20 MG TAB PO SCH (09:38)
[2018-10-26] MEDS: DOCUSATE SOD 100 MG CAP PO SCH ×2 (09:38→21:30)
[2018-10-26 13:00] VITALS: BP 100/54
[2018-10-26 17:00] VITALS: BP 132/78
--- NOTE | 2018-10-26 18:27 | NUR ---
Respiratory note: PT RECIEVED ON RA. PT AWAKE AND ALERT AT THIS TIME. NO RESP DISTRESS NOTED. SPO2 100%, HR 75, RR 16 . BS CLR T/O. NO PRN TX INDICATED AT THIS TIME.
--- NOTE | 2018-10-26 19:29 | NUR ---
RECEIVED PATIENT FROM DAY SHIFT RN. PATIENT RESTING IN BED. NO S/S OF DISTRESS NOTED. DENIED PAIN FOR NOW. POC INSTRUCTED AND ENCOURAGED PATIENT TO CALL FOR PROFESSOR OF [employer]UDIES IF NEEDED. BED IN LOWEST POSITION WITH SIDE RAILS UP X 2. CALL BRYANT WITHIN REACH. ALARM ON. CONTINUE TO MONITOR FOR CHANGES Q1H AND PRN.
[2018-10-26 22:00] VITALS: BP 116/74
--- NOTE | 2018-10-26 22:15 | NUR ---
ORAL MEDICATION GIVEN ORDERED, WITH APPLE SAUCE. PATIENT SWALLOWED WELL. NO S/S OF ASPIRATION NOTED. CONTINUE TO MONITOR.
--- NOTE | 2018-10-26 22:45 | NUR ---
REASSESSED BP 106/62. HR 61. CONTINUE TO MONITOR
--- NOTE | 2018-10-27 02:13 | NUR ---
PATIENT SLEEPING. NO S/S OF DISTRESS NOTED. CONTINUE CARE.
[2018-10-27 05:55] VITALS: BP 125/79
[2018-10-27] MEDS: SODIUM CHLOR 0.9% PF (SALINE LOCK) 10ML VIAL/SYR IV SCH ×3 (06:21→21:40)
[2018-10-27] MEDS: cloNIDine HCL 0.1 MG TAB PO SCH ×3 (06:22→21:40)
--- NOTE | 2018-10-27 06:22 | NUR ---
ORAL MEDICATION GIVEN ORDERED, WITH APPLE SAUCE. PATIENT SWALLOWED WELL. NO S/S OF ASPIRATION NOTED. CONTINUE TO MONITOR.
[2018-10-27] MEDS: ENSURE CLEAR Mixed Berry 8oz Carton PO SCH ×3 (08:00→18:26)
[2018-10-27 08:35] VITALS: BP 121/69
[2018-10-27] MEDS: cefTRIAXone 1GM/50ML D5W 50 ML IV SCH (08:50)
[2018-10-27] MEDS: DOCUSATE SOD 100 MG CAP PO SCH ×2 (08:50→21:40)
[2018-10-27] MEDS: LOSARTAN POTASSIUM 50 MG TAB PO SCH (08:51)
[2018-10-27] MEDS: FAMOTIDINE 20 MG TAB PO SCH (08:51)
[2018-10-27] MEDS: MULTIPLE VITAMIN TAB PO SCH (08:51)
[2018-10-27] MEDS: METOPROLOL SUCCINATE XL 50 MG TAB PO SCH (08:52)
[2018-10-27] MEDS: ENOXAPARIN SOD 40 MG/0.4 ML SYRINGE SC SCH (08:52)
--- NOTE | 2018-10-27 10:00 | NUR ---
Respiratory note: PATIENT ASSESSED FOR PRN MED-NEB TX, MEDICATION NOT INDICATED AT THIS TIME PATIENT DENIED NEED AND WAS SHOWING NO SIGNS ACUTE RESPIRATORY DISTRESS. PATIENT INSTRUCTED TO CALL FOR RT IF HE FELT THE NEED FOR TX AT A LATER TIME. 97% R/A
[2018-10-27 12:58] VITALS: BP 103/63
--- NOTE | 2018-10-27 14:30 | NUR ---
MD TUCKER AT BEDSIDE. UPDATED ON PATIENT STATUS. NEW ORDERS GIVEN, READ BACK AND VERIFIED. SEE ORDERS. WILL FOLLOW THROUGH WITH NEW ORDERS.
[2018-10-27] MEDS ORDERED: IODIXANOL 320MG/ML 100ML BTL IV ONE (16:09)
[2018-10-27] MEDS ORDERED: GASTROGRAFIN 30 ML SOL ONE (16:09)
[2018-10-27] MEDS: SODIUM CHLORIDE 0.9% 1,000 ML IV SCH (16:45)
[2018-10-27 17:02] VITALS: BP 120/68
[2018-10-27] MEDS: LACTULOSE 20Gm/30ML SOLN PO SCH (18:00)
--- NOTE | 2018-10-27 18:24 | NUR ---
PATIENT BOWEL MOVEMENT PATIENT HAD MODERATE SOFT BOWEL MOVEMENT.
--- NOTE | 2018-10-27 18:35 | NUR ---
RT NOTE: PT ASSESSED FOR PRN MED NEB TX, PT ON ROOM AIR SPO2 99%, HR 63, RR 16. PT DENIES SOB AND NO RESPIRATORY DISTRESS NOTED. BS CLEAR. NO TX INDICATED AT THIS TIME. PT NOTIFIED TO HAVE RT PAGED IF SOB OCCURS.
--- NOTE | 2018-10-27 19:09 | NUR ---
CLOSING NOTE ENDORSED CARE TO ROPE MACHINE SETTER RN. PATIENT IN BED LOW LOCK POSITION, CALL LIGHT IN REACH. NO S/S OF DISTRESS. RN AWARE PF PATIENT PENDING CT, ENDORSED NEED OF 20G IV. RN AWARE OF PATIENT BOWEL MOVEMENT.
--- NOTE | 2018-10-27 19:45 | NUR ---
RECEIVED PATIENT FROM DAY SHIFT RN. PATIENT RESTING IN BED. NO S/S OF DISTRESS NOTED. DENIED PAIN FOR NOW. POC INSTRUCTED AND ENCOURAGED PATIENT TO CALL FOR BEATER OPERATOR IF NEEDED. BED IN LOWEST POSITION WITH PADDED SIDE RAILS UP X 2. CALL BRYANT WITHIN REACH. ALARM ON. CONTINUE TO MONITOR FOR CHANGES Q1H AND PRN.
[2018-10-27 21:33] VITALS: BP 148/93
--- NOTE | 2018-10-27 21:43 | NUR ---
ORAL MEDICATION GIVEN ORDERED, WITH APPLE SAUCE. PATIENT SWALLOWED WELL. NO S/S OF ASPIRATION NOTED. CONTINUE TO MONITOR.
--- NOTE | 2018-10-27 22:45 | NUR ---
REASSESSED BP 107/70, HR 73. CONTINUE TO MONITOR.
[2018-10-28] VITALS (7 sets, daily range): BP systolic 91–110; BP diastolic 51–69
--- NOTE | 2018-10-28 02:36 | NUR ---
PATIENT SLEEPING. NO S/S OF DISTRESS NOTED. CONTINUE CARE.
[2018-10-28] MEDS: LACTULOSE 20Gm/30ML SOLN PO SCH ×5 (06:00→23:45)
[2018-10-28] MEDS: SODIUM CHLOR 0.9% PF (SALINE LOCK) 10ML VIAL/SYR IV SCH ×3 (06:13→22:20)
[2018-10-28] MEDS: cloNIDine HCL 0.1 MG TAB PO SCH ×3 (06:13→22:00)
--- NOTE | 2018-10-28 06:15 | NUR ---
ORAL MEDICATION GIVEN ORDERED, WITH APPLE SAUCE. PATIENT SWALLOWED WELL. NO S/S OF ASPIRATION NOTED. CONTINUE TO MONITOR.
--- NOTE | 2018-10-28 07:40 | NUR ---
OPENING SHIFT NOTE PATIENT IN BED WITH EYES CLOSED CHEST RISE AND FALL VISUALIZED. BED IN LOWEST LOCKED POSITION CALL LIGHT WITH IN REACH WILL CONTINUE TO MONITOR
[2018-10-28] MEDS: ENSURE CLEAR Mixed Berry 8oz Carton PO SCH ×3 (08:00→18:00)
--- NOTE | 2018-10-28 08:38 | NUR ---
Respiratory note: ASSESSED PT FOR PRN TX PT WAS ASLEEP, NO RESP DISTRESS NOTED. HR 65, RR 16, SPO2 99% ON ROOM AIR. BS ARE CLEAR AND DIMINISHED, NO INDICATION FOR TX AT THIS TIME. PT KNOWS TO HAVE RT PAGED IF TX IS NEEDED.
[2018-10-28] MEDS ORDERED: GASTROGRAFIN 30 ML SOL ONE (09:18)
[2018-10-28] MEDS: SODIUM CHLORIDE 0.9% 1,000 ML IV SCH (09:25)
[2018-10-28] MEDS: LOSARTAN POTASSIUM 50 MG TAB PO SCH (10:00)
[2018-10-28] MEDS: POLYETHYLENE GLYCOL 17 GM PWDR PO SCH (10:00)
[2018-10-28] MEDS: METOPROLOL SUCCINATE XL 50 MG TAB PO SCH (10:00)
[2018-10-28] MEDS: cefTRIAXone 1GM/50ML D5W 50 ML IV SCH (10:14)
[2018-10-28] MEDS: DOCUSATE SOD 100 MG CAP PO SCH ×2 (10:15→22:21)
[2018-10-28] MEDS: FAMOTIDINE 20 MG TAB PO SCH (10:16)
[2018-10-28] MEDS: ENOXAPARIN SOD 40 MG/0.4 ML SYRINGE SC SCH (10:16)
[2018-10-28] MEDS: MULTIPLE VITAMIN TAB PO SCH (10:16)
[2018-10-28 11:06] LABS: Calcium 8.1 mg/dL (8.5-10.1)
[2018-10-28 11:08] LABS: BUN/Creatinine Ratio 18.2
[2018-10-28 12:06] LABS: Basophils # (auto) 0 uL; Basophils % (auto) 0.7 % (0.0-2.0); Eosinophils # (auto) 0.2 uL; Eosinophils % (auto) 4.5 % (0.0-7.0); Hematocrit 34.4 % (41.0-53.0); Hemoglobin 11.4 g/dL (13.5-17.5); Lymphocytes # (auto) 1.3 uL; Lymphocytes % (auto) 33.2 % (10.0-50.0); Mean Corpuscular Hemoglobin 31.9 pg (28.0-32.0); Mean Corpuscular Hgb Conc. 33.1 g/dL (32.0-36.0); Mean Corpuscular Volume 96.3 fL (80.0-100.0); Monocytes # (auto) 0.5 uL; Monocytes % (auto) 11.7 % (0.0-12.0); Neutrophils # (auto) 1.9 uL; Neutrophils % (auto) 49.9 % (37.0-80.0); Nucleated Red Blood Cells % 0.1 %; Platelet Count (auto) 172 10^3/uL (140-450); Red Blood Cells 3.57 10^6/uL (4.5-5.90); Red Cell Distribution Width 16.8 % (11.8-14.3); White Blood Cell 3.9 10^3/uL (4.4-10.8)
--- NOTE | 2018-10-28 19:07 | NUR ---
END OF SHIFT NOTE PATIENT SITTING ON THE SIDE OF BED EATING DINNER. SHOWS NO S/S OF DISTRESS OR SOB. BED IN LOWEST LOCKED POSITION CALL LIGHT AND CANE WITHIN REACH ENDORSE CARE TO NOC RN
--- NOTE | 2018-10-28 19:44 | NUR ---
RECEIVED PATIENT FROM DAY SHIFT RN. PATIENT RESTING IN BED. NO S/S OF DISTRESS NOTED. DENIED PAIN FOR NOW. POC INSTRUCTED AND ENCOURAGED PATIENT TO CALL FOR FAUCET POLISHER IF NEEDED. BED IN LOWEST POSITION WITH PADDED SIDE RAILS UP X 2. CALL BRYANT WITHIN REACH. ALARM ON. CONTINUE TO MONITOR FOR CHANGES Q1H AND PRN.
--- NOTE | 2018-10-28 22:21 | NUR ---
ORAL MEDICATION GIVEN ORDERED, WITH APPLE SAUCE. PATIENT SWALLOWED WELL. BP MEDICATION HELD FOR DECREASED BP 102/62. NO S/S OF ASPIRATION NOTED. CONTINUE TO MONITOR.
--- NOTE | 2018-10-28 22:40 | NUR ---
Respiratory note:ASSESSED PT FOR PRN MED NEB AT THIS TIME, PT DENIES SOB AT THIS TIME, NO RESP DISTRESS NOTED, NO TX INDICATED. PULSE OX 96% ON RA, HR 67, RR 18, BILATERAL BS CLEAR.
[2018-10-29] MEDS: SODIUM CHLORIDE 0.9% 1,000 ML IV SCH (02:05)
--- NOTE | 2018-10-29 02:16 | NUR ---
PATIENT SLEEPING. NO S/S OF DISTRESS NOTED. CONTINUE CARE.
[2018-10-29 05:32] VITALS: BP 125/75
[2018-10-29] MEDS: LACTULOSE 20Gm/30ML SOLN PO SCH ×2 (06:31→12:00)
[2018-10-29] MEDS: SODIUM CHLOR 0.9% PF (SALINE LOCK) 10ML VIAL/SYR IV SCH ×2 (06:31→14:00)
[2018-10-29] MEDS: cloNIDine HCL 0.1 MG TAB PO SCH ×2 (06:32→14:00)
--- NOTE | 2018-10-29 07:20 | NUR ---
Opening Shift Note Assumed care of patient, awake and alert. No S/S of distress/SOB or pain. Instructed on POC and to call for assist PRN, will continue to monitor for changes Q1hr and PRN.
[2018-10-29 08:00] VITALS: BP 114/66
[2018-10-29 08:01] LABS: Basophils # (auto) 0 uL; Basophils % (auto) 0.7 % (0.0-2.0); Eosinophils # (auto) 0.2 uL; Hematocrit 31.6 % (41.0-53.0); Hemoglobin 10.6 g/dL (13.5-17.5); Lymphocytes % (auto) 19.2 % (10.0-50.0); Mean Corpuscular Hemoglobin 31.8 pg (28.0-32.0); Mean Corpuscular Hgb Conc. 33.4 g/dL (32.0-36.0); Monocytes # (auto) 0.4 uL; Monocytes % (auto) 8.4 % (0.0-12.0); Neutrophils # (auto) 3.5 uL; Neutrophils % (auto) 68.7 % (37.0-80.0); Platelet Count (auto) 175 10^3/uL (140-450); Red Blood Cells 3.33 10^6/uL (4.5-5.90); Red Cell Distribution Width 16.9 % (11.8-14.3)
[2018-10-29 08:11] LABS: Calcium 8.1 mg/dL (8.5-10.1); Potassium 3.9 mmol/L (3.5-5.1)
[2018-10-29 08:13] LABS: BUN/Creatinine Ratio 16.2
[2018-10-29 09:00] VITALS: BP 114/66
[2018-10-29] MEDS: DOCUSATE SOD 100 MG CAP PO SCH (09:51)
[2018-10-29] MEDS: FAMOTIDINE 20 MG TAB PO SCH (09:51)
[2018-10-29] MEDS: LOSARTAN POTASSIUM 50 MG TAB PO SCH (09:52)
[2018-10-29] MEDS: METOPROLOL SUCCINATE XL 50 MG TAB PO SCH (09:53)
[2018-10-29] MEDS: ENSURE CLEAR Mixed Berry 8oz Carton PO SCH ×2 (09:53→12:14)
[2018-10-29] MEDS: MULTIPLE VITAMIN TAB PO SCH (09:53)
[2018-10-29] MEDS: ENOXAPARIN SOD 40 MG/0.4 ML SYRINGE SC SCH (09:54)
[2018-10-29] MEDS: POLYETHYLENE GLYCOL 17 GM PWDR PO SCH (10:00)
[2018-10-29] MEDS ORDERED: LOSA-46 PO (11:14)
--- NOTE | 2018-10-29 12:00 | NUR ---
Spoke with patient's niece. Patient niece Abena unable to provide transportation home. Requesting transportation. MD notified and elementary school social worker order entered.
[2018-10-29 12:29] VITALS: BP 114/66
[2018-10-29 13:00] VITALS: BP 111/68
--- NOTE | 2018-10-29 15:34 | NUR ---
Per consult to set up transportation for home. Contacted [facility] Ph: ) fax: ) faxed medical records. Per May from [facility] they are reviewing referral and will call ANIA Alcaraz with a pickle maker time. Informed ANIA Alcaraz. Addendum: 10/29/18 at 1537 by MARCELINA HERMAN Amended: Links added.
--- NOTE | 2018-10-29 15:51 | NUR ---
Recieved call from [facility] Transportation set up with preferred medical and transport is on the way.
--- NOTE | 2018-10-29 17:05 | NUR ---
Discharge from Tele Discharge instructions given as ordered. Encourage to follow up with PMD as instructed. All questions and concerns addressed. Patient verbalized understanding. Medication reconciliation form completed and copy given to patient. IV removed with catheter intact, pressure dressing applied. Telemetry unit returned to ICU. Patient transferred home with preferred medical transportation via wheelchair. No distress noted at time of departure.
== END 2018-10-29 17:06 | disposition home health service (06) | DRG 469 ==
LOC: EDBD 00:44 → ER 00:47 → OVERFLOW 00:48 → CENTRAL 13:45 → TELE-CENTR 10-25 14:44
PROVIDERS: ADMIT Nurse Practitioner Acute Care; ATTEND Internal Medicine Nephrology
DX: N17.0 Acute kidney failure with tubular necrosis (principal); E44.0 Moderate protein-calorie malnutrition; I50.9 Heart failure, unspecified; G81.91 Hemiplegia, unspecified affecting right dominant side; I11.0 Hypertensive heart disease with heart failure; R56.9 Unspecified convulsions; N39.0 Urinary tract infection, site not specified; R62.7 Adult failure to thrive; N28.89 Other specified disorders of kidney and ureter; K59.00 Constipation, unspecified; R47.01 Aphasia; E87.6 Hypokalemia; D64.9 Anemia, unspecified; Z82.49 Family history of ischemic heart disease and other diseases of the circulatory system; Z86.73 Personal history of transient ischemic attack (TIA), and cerebral infarction without residual deficits; Z88.8 Allergy status to other drugs, medicaments and biological substances
CPT/HCPCS: 36415; 70450; 71045; 74018; 74177; 80048; 80053; 81001; 83735; 84484; 85025; 85379; 85610; 85730; 87086; 93005; 96361; 96365; 96375; 97116; 97530; G0378; J0696; J2405; Q9967

== ENCOUNTER 2020-02-25 10:45 | Inpatient (IN) | payer MEDICAID ==
[~2020-02-25] VITALS: Ht 167.6 cm; Wt 49.8 kg
[~2020-02-25 10:45] MED LIST changes: +APIX5TAB OR; -DIPH25CA46; -DIPH50CA PO; -FUR40T PO; -HYDROCODON-ACETAMINOPHN PO; +LOSA-69 PO; -LOSA100T33 PO; -TRAM50TA2
[2020-02-25] MEDS ORDERED: SODIUM CHLORIDE 0.9% 1,000 ML IV ONE (11:00)
[2020-02-25] MEDS ORDERED: SODIUM CHLORIDE 0.9% 1,000 ML IVB ONE (11:00)
[2020-02-25 11:52] LABS: Basophils # (auto) 0.1 10 ^3/uL (0-0.2); Basophils % (auto) 1.2 % (0.0-2.0); Eosinophils # (auto) 0.3 10 ^3/uL (0-0.8); Eosinophils % (auto) 5.6 % (0.0-7.0); Hematocrit 27.5 % (41.0-53.0); Hemoglobin 8.5 g/dL (13.5-17.5); Lymphocytes # (auto) 0.7 10 ^3/uL (0.4-5.4); Lymphocytes % (auto) 16.4 % (10.0-50.0); Mean Corpuscular Hgb Conc. 30.8 g/dL (32.0-36.0); Mean Corpuscular Volume 87.6 fL (80.0-100.0); Monocytes # (auto) 0.5 10 ^3/uL (0-1.3); Monocytes % (auto) 10.6 % (0.0-12.0); Neutrophils % (auto) 66.2 % (37.0-80.0); Nucleated Red Blood Cells % 0.1 %; Platelet Count (auto) 311 10^3/uL (140-450); Red Blood Cells 3.14 10^6/uL (4.5-5.90); Red Cell Distribution Width 15.6 % (11.8-14.3); White Blood Cell 4.5 10^3/uL (4.4-10.8)
[2020-02-25 11:56] LABS: Albumin 2.9 g/dL (3.4-5.0); Anion Gap 4 (5-15); Blood Alcohol < 3.0 mg/dL (0-5); Blood Urea Nitrogen 21 mg/dL (7-18); Calcium 8.7 mg/dL (8.5-10.1); Carbon Dioxide 28 mmol/L (21-32); Chloride 106 mmol/L (98-107); Glucose 80 mg/dL (74-106); Potassium 3.8 mmol/L (3.5-5.1); Sodium 138 mmol/L (136-145)
[2020-02-25] MEDS ORDERED: DEXTROSE (50%) 50ML SYRG IV ONE (12:00)
[2020-02-25 12:01] LABS: Alanine Aminotransferase 11 U/L (16-61); Alkaline Phosphatase 93 U/L (45-117); Aspartate Aminotransferase 15 U/L (15-37); BUN/Creatinine Ratio 19.1; Bilirubin, Total 0.3 mg/dL (0.2-1.0); GFR African American 87 mL/min; GFR Non-African American 72 mL/min; Total Protein 7.6 g/dL (6.4-8.2)
[2020-02-25 13:55] LABS: INR 1.04 (0.9-1.15); Partial Thromboplastin Time 20.4 sec (23.0-31.2)
[2020-02-25] MEDS ORDERED: ONDANSETRON HCL 4 MG/2 ML VIAL IV PRN (14:15)
[2020-02-25] MEDS ORDERED: TEMAZEPAM 15 MG CAP PO PRN (14:15)
[2020-02-25] MEDS ORDERED: MORPHINE SULF INJ 2 MG/ML SYRINGE 1ML IV PRN (14:15)
[2020-02-25] MEDS ORDERED: DOCUSATE SOD 100 MG CAP PO PRN (14:15)
[2020-02-25] MEDS ORDERED: ACETAMINOPHEN 325 MG TAB PO PRN (14:15)
[2020-02-25] MEDS: SODIUM CHLORIDE 0.9% 1,000 ML IV SCH ×2 (18:46→22:35)
[2020-02-25] MEDS ORDERED: cloNIDine HCL 0.1 MG TAB PO PRN (19:30)
[2020-02-25 20:10] VITALS: BP 134/81
[2020-02-25] MEDS: ASCORBIC ACID 500 MG TAB PO SCH (21:24)
[2020-02-25 21:47] VITALS: BP 134/81
[2020-02-25] MEDS ORDERED: FAMOTIDINE 20 MG TAB PO SCH (22:00)
[2020-02-25] MEDS ORDERED: INFLUENZA QUAD 2020-2021 0.5 ML SYRG IM ONE (22:15)
--- NOTE | 2020-02-25 22:20 | NUR ---
MS admit from ER DESIREE ANDRADE admitted to tele/MS after SBAR received. Patient oriented to Madyson Storm RN primary RN, unit, room, bed, and unit policies regarding patient care and visiting hours. Patient weighed by bedscale and encouraged to call if they need something. All questions and concerns addressed, patient verbalized understanding. Bed in lowest position, bed alarm on, call light within reach, will continue to monitor Note:
--- NOTE | 2020-02-25 23:30 | NUR ---
Noted healing scab on right knee present on admission. Pictures taken for reference
--- NOTE | 2020-02-26 00:05 | NUR ---
IV on left hand infiltrated, removed with catheter intact, patient tolerated well IV insertion IV access obtained, via clean sterile technique by inserting 22 gauge catheter at LW. IV secured properly. No trauma to site. Patient tolerated well. NOTE: []
[2020-02-26 05:18] VITALS: BP 133/84
[2020-02-26] MEDS: SODIUM CHLORIDE 0.9% 1,000 ML IV SCH ×2 (06:40→15:21)
--- NOTE | 2020-02-26 08:05 | NUR ---
OPENING SHIFT NOTE: PATIENT RESTING IN BED, A/OX4. SLIGHTLY DELAYED IN RESPONSES, NOTED TO HAVE RIGHT SIDED WEAKNESS. PATIENT ON ROOM AIR 98%, RESPIRATIONS EVEN AND UNLABORED. PATIENT UPDATED ON PLAN OF CARE. FALL PRECAUTIONS IN PLACE, WILL CONTINUE TO MONITOR.
[2020-02-26 08:08] LABS: Basophils # (auto) 0 10 ^3/uL (0-0.2); Eosinophils # (auto) 0.3 10 ^3/uL (0-0.8); Hematocrit 25.2 % (41.0-53.0); Lymphocytes % (auto) 29.2 % (10.0-50.0); Mean Corpuscular Hemoglobin 27.1 pg (28.0-32.0); Mean Corpuscular Hgb Conc. 31.9 g/dL (32.0-36.0); Mean Corpuscular Volume 85.1 fL (80.0-100.0); Monocytes # (auto) 0.5 10 ^3/uL (0-1.3); Monocytes % (auto) 13.2 % (0.0-12.0); Neutrophils # (auto) 1.8 10 ^3/uL (1.6-8.6); Neutrophils % (auto) 49.6 % (37.0-80.0); Nucleated Red Blood Cells % 0.1 %; Platelet Count (auto) 301 10^3/uL (140-450); Red Blood Cells 2.96 10^6/uL (4.5-5.90); Red Cell Distribution Width 15.3 % (11.8-14.3); White Blood Cell 3.6 10^3/uL (4.4-10.8)
[2020-02-26 08:34] LABS: Albumin 2.4 g/dL (3.4-5.0); BUN/Creatinine Ratio 20.2; Bilirubin, Total 0.3 mg/dL (0.2-1.0); Calcium 8.4 mg/dL (8.5-10.1); Total Protein 6.5 g/dL (6.4-8.2)
[2020-02-26 08:40] LABS: Potassium 2.8 mmol/L (3.5-5.1)
[2020-02-26] MEDS ORDERED: POTASSIUM EFFERVESENT TAB 25 MEQ PO ONE ×2 (08:45→10:15)
[2020-02-26 09:00] VITALS: BP 146/85
[2020-02-26] MEDS ORDERED: FAMOTIDINE 20 MG TAB PO SCH (10:00)
[2020-02-26] MEDS ORDERED: POTASSIUM CHLORIDE 40 MEQ, LIDOCAINE 1% (LOCAL ANESTH.) 4 ML in SODIUM CHL 0.9% 250 ML IV ONE (10:15)
[2020-02-26] MEDS: ZINC SULFATE 220mg CAP or TAB PO SCH (10:36)
[2020-02-26] MEDS: ENOXAPARIN SOD 40 MG/0.4 ML SYRINGE SC SCH (10:37)
[2020-02-26] MEDS: ASCORBIC ACID 500 MG TAB PO SCH ×2 (10:37→21:39)
--- NOTE | 2020-02-26 10:45 | NUR ---
PATIENT BACK IN ROOM FROM PROCEDURE. VS STABLE PATIENT AROUSABLE. Addendum: 02/26/20 at 1125 by VIANEY CORTEZ RN RN -MISTAKEN ENTRY- 1124- MD ADE ELKINS. PATIENT SCHEDULED FOR EGD, ORDERS RECEIVED. PATIENT VERBALIZED UNDERSTANDING. WILL CONTINUE TO MONITOR,
--- NOTE | 2020-02-26 11:23 | NUR ---
MD SANDERSON ROUNDING.
--- NOTE | 2020-02-26 11:25 | NUR ---
PATRICIA WALKED TO LAB. URINE SAMPLE WELL.
[2020-02-26] MEDS: MAGNESIUM SULFATE 1GM/100ML 100 ML IV SCH ×2 (11:29→13:32)
--- NOTE | 2020-02-26 12:00 | NUR ---
WOUND CARE NOTE: IN TO SEE PATIENT AT THIS TIME PER WOUND CARE CONSULT REQUEST. WOUND PHOTOS TAKEN AT TIME OF ADMIT, BY BEDSIDE NURSE FOR REFERENCE. PATIENT ADMITTED TO [facility] WITH DIAGNOSIS OF METABOLIC ENCEPHALOPATHY. HE IS S/P CVA, WITH RIGHT SIDED WEAKNESS. PATIENT IS NOTED TO HAVE CURRENT SAW SCORE OF 14.PATIENT IS ABLE TO TURN/REPOSITION SELF. HE IS NOTED TO HAVE A HYPERPIGMENTED DARK RED/BROWN SKIN TO THE SACRUM/BUTTOCKS. SKIN INTACT, NON BLANCHABLE. APPLIED OPTIFOAM GENTLE SACRAL DRESSING TO SACRUM. RIGHT KNEE NOTED TO HAVE AN INTACT PINK COLLAGEN SCAR. NO NEED FOR DRESSING. RECOMMEND: FREQUENT TURN SCHEDULE Q 2 HOURS, PRN CONDITION PERMITS, WITH PRESSURE REDISTRIBUTION USING PILLOWS/WEDGES, BID/PRN APPLICATION MOISTURE BARRIER CREAM, OPTIFOAM GENTLE SACRAL DRESSING, SKIN/WOUND CARE PLAN, CONTINUED MONITORING BY WOUND CARE TEAM. Addendum: 02/26/20 at 1657 by Becky Daily RN Amended: Links added.
[2020-02-26] MEDS: PANTOPRAZOLE 40 MG TAB PO SCH ×2 (12:27→21:39)
[2020-02-26] MEDS: cefTRIAXone 1GM/50ML D5W 50 ML IV SCH (12:27)
--- NOTE | 2020-02-26 12:37 | NUR ---
ss consult Per consult requesting info on advanced directive. Patient has been provided with advanced directive. Addendum: 02/26/20 at 1238 by Bebe Luther Amended: Links added.
[2020-02-26 13:00] VITALS: BP 149/80
[2020-02-26 13:39] LABS: Urine Bacteria NONE SEEN /hpf (None Seen); Urine Blood Negative /uL (Negative); Urine Specific Gravity 1.003 (1.001-1.035); Urine WBC <1 /hpf (0 - 3)
--- NOTE | 2020-02-26 13:47 | NUR ---
PHYSICAL THERAPY AT BEDSIDE.
--- NOTE | 2020-02-26 13:59 | NUR ---
PATIENT ABLE TO WALK TO WINDOW AND BATHROOM WITH PHYSICAL THERAPY, PATIENT ABLE TO WASH UP IN BATHROOM AND RETURN TO A FULL BED LINEN CHANGE.
[2020-02-26 14:25] LABS: Alcohol, Urine < 3.0 mg/dL (0-10); Amphetamine Screen, Urine NEGATIVE (NEGATIVE); Barbiturate Scree,Urine NEGATIVE (NEGATIVE); Benzodiazephine Screen, Urine NEGATIVE (NEGATIVE); Cannabinoid Screen, Urine NEGATIVE (NEGATIVE); Cocaine Screen, Urine NEGATIVE (NEGATIVE); Opiate Scree,Urine NEGATIVE (NEGATIVE); Phencyclidine Screen, Urine NEGATIVE (NEGATIVE)
[2020-02-26 15:58] LABS: BUN/Creatinine Ratio 14.3; Calcium 8.4 mg/dL (8.5-10.1); Magnesium 2.7 mg/dL (1.6-2.6); Potassium 3.3 mmol/L (3.5-5.1)
--- NOTE | 2020-02-26 16:26 | NUR ---
Assessment Patient is a 64-year-old male who is alert and oriented. Prior to admission patient lived home with family and functioned with assistance. Patient will return home to his prior living arrangements post discharge and will need a TAXI voucher upon d.c day. Patient has service with [facility]. Regarding social service consult for home health safety evaluation, walker and transportation. Patient has a walker, cane and home oxygen for home use. Faxed MD order to [facility]. Per Rosie with [facility] [employer] [facility] patient has been accepted and service to start within 24-48hrs upon d/c day. Faxed clinical information to [facility]. Obtain authorization from [id number]. Informed patient he has the right to participate in all discharge planning. Patient verbalized understanding and agreed to discharge plan. Addendum: 02/26/20 at 1633 by MARCELINA RESENDEZ Amended: Links added.
[2020-02-26 16:39] VITALS: BP 149/80
[2020-02-26 16:41] VITALS: BP 151/91
[2020-02-26] MEDS: metroNIDAZOLE 500MG/100ML 100 ML IV SCH ×2 (16:56→21:39)
--- NOTE | 2020-02-26 19:11 | NUR ---
CARE ENDORSED TO NOC RN.
--- NOTE | 2020-02-26 19:20 | NUR ---
Opening Shift Note Received report from Maribel JORGE. Assumed care of patient, awake and alert. No S/S of distress/SOB or pain. Instructed on POC and to call for assist PRN. Fall precaution measures in place, will continue to monitor for changes Q1hr and PRN.
--- NOTE | 2020-02-26 20:49 | NUR ---
IV insertion IV access obtained, via clean sterile technique by inserting 20 gauge catheter at L wrist after 2 attempt(s). IV secured properly. No trauma to site. Patient tolerated well.
[2020-02-26 22:03] VITALS: BP 142/89
[2020-02-27 05:18] VITALS: BP 148/86
[2020-02-27] MEDS: metroNIDAZOLE 500MG/100ML 100 ML IV SCH ×3 (06:09→21:39)
[2020-02-27 09:06] VITALS: BP 151/88
[2020-02-27] MEDS ORDERED: FLUMAZENIL 0.1 MG/ML INJ 10ML MDV IV ONE (09:25)
[2020-02-27] MEDS ORDERED: NALOXONE HCL 0.4 MG/ML VIAL ONE (09:25)
--- NOTE | 2020-02-27 09:25 | NUR ---
Patient taken down to preop Patient taken down to GI lab,MD Harvey at bedside. No acute distress or sob. Will resume care on arrival back to unit
[2020-02-27] MEDS ORDERED: diphenhdrAMINE HCL 50 MG/1 ML VL ONE (09:26)
[2020-02-27] MEDS ORDERED: MIDAZOLAM HCL 5 MG/ML-1ML VIAL ONE (09:26)
[2020-02-27] MEDS ORDERED: SODIUM CHLORIDE LOCK 0 ML ONE (09:26)
[2020-02-27] MEDS ORDERED: LIDOCAINE VISCOUS 2% 15ML UD ONE (09:27)
[2020-02-27] MEDS ORDERED: fentaNYL CITRATE 100 MCG/2 ML VL ONE (09:27)
[2020-02-27] MEDS: ZINC SULFATE 220mg CAP or TAB PO SCH (10:00)
--- NOTE | 2020-02-27 10:28 | NUR ---
Patient back from PACU No acute distress or sob noted, fall precs in place per protocol. Bed alarm on at all times. VSS. Cont to monitor
[2020-02-27] MEDS: cefTRIAXone 1GM/50ML D5W 50 ML IV SCH (11:03)
[2020-02-27] MEDS: PANTOPRAZOLE 40 MG TAB PO SCH ×2 (11:03→21:56)
[2020-02-27] MEDS: ASCORBIC ACID 500 MG TAB PO SCH ×2 (11:03→21:56)
[2020-02-27] MEDS: ENOXAPARIN SOD 40 MG/0.4 ML SYRINGE SC SCH (11:03)
[2020-02-27] MEDS: SODIUM CHLORIDE 0.9% 1,000 ML IV SCH ×3 (11:04→16:15)
--- NOTE | 2020-02-27 11:10 | NUR ---
Nutrition Assessment Est Energy needs [id number] kcal (30-35 kcal/kg BW 49.8kg) Est protein needs 50-65g (1-1.3g/kg BW 49.8kg r/t underwt) Will monitor and reassess prn. Addendum: 02/27/20 at [address] Amended: Links added.
[2020-02-27 13:00] VITALS: BP 154/88
[2020-02-27 17:00] VITALS: BP 138/86
--- NOTE | 2020-02-27 19:00 | NUR ---
Patient care endorsed endorsed care to Levi rn. Patient resting comfortably in bed no acute distress or sob noted. Fall precs in place per protocol. Call light within reach.
[2020-02-27] MEDS: NITROGLYCERIN 0.4 MG SL TAB SL PRN ×3 (21:35→21:51)
[2020-02-27 22:00] VITALS: BP 155/83
[2020-02-27] MEDS ORDERED: ATORVASTATIN 20 MG TAB PO ONE (22:30)
[2020-02-27] MEDS ORDERED: METOPROLOL TARTRATE 25 MG TAB PO ONE (22:30)
[2020-02-27] MEDS ORDERED: ASPirin 81 mg TAB PO ONE (22:30)
[2020-02-27 23:45] LABS: Basophils # (auto) 0 10 ^3/uL (0-0.2); Basophils % (auto) 0.9 % (0.0-2.0); Eosinophils # (auto) 0.4 10 ^3/uL (0-0.8); Mean Corpuscular Hemoglobin 27.3 pg (28.0-32.0); Monocytes # (auto) 0.5 10 ^3/uL (0-1.3)
[2020-02-27 23:47] LABS: Eosinophils % (auto) 12.4 % (0.0-7.0); Hematocrit 24.8 % (41.0-53.0); Lymphocytes # (auto) 0.9 10 ^3/uL (0.4-5.4); Lymphocytes % (auto) 27.6 % (10.0-50.0); Mean Corpuscular Hgb Conc. 32.3 g/dL (32.0-36.0); Mean Corpuscular Volume 84.5 fL (80.0-100.0); Monocytes % (auto) 14.8 % (0.0-12.0); Neutrophils # (auto) 1.5 10 ^3/uL (1.6-8.6); Neutrophils % (auto) 44.3 % (37.0-80.0); Platelet Count (auto) 315 10^3/uL (140-450); Red Blood Cells 2.93 10^6/uL (4.5-5.90); Red Cell Distribution Width 15.5 % (11.8-14.3); White Blood Cell 3.4 10^3/uL (4.4-10.8)
[2020-02-27 23:59] LABS: Anion Gap 6 (5-15); Blood Urea Nitrogen 13 mg/dL (7-18); Calcium 8.1 mg/dL (8.5-10.1); Carbon Dioxide 27 mmol/L (21-32); Chloride 105 mmol/L (98-107); Glucose 89 mg/dL (74-106); Potassium 3.3 mmol/L (3.5-5.1); Sodium 138 mmol/L (136-145)
[2020-02-28 00:05] LABS: BUN/Creatinine Ratio 13.8; Cholesterol 132 mg/dL (< 200); GFR African American 105 mL/min; GFR Non-African American 86 mL/min; HDL Cholesterol 56 mg/dL (40-59); LDL Cholesterol 76 mg/dL (< 100); Phosphorus 2.2 mg/dL (2.5-4.90); Triglycerides 47 mg/dL (< 150)
[2020-02-28] MEDS: SODIUM CHLORIDE 0.9% 1,000 ML IV SCH ×2 (00:35→09:10)
[2020-02-28] MEDS ORDERED: POTASSIUM CHL 20MEQ/100ML 100 ML IV ONE (00:45)
[2020-02-28] MEDS ORDERED: NITROGLYCERIN 0.2MG/HR TOPICAL PATCH TD ONE (00:45)
--- NOTE | 2020-02-28 00:55 | NUR ---
Chest Pain 2129 Patient notified me of him having chest pain 10/10 pain level. Provided 3 doses of nitro and 1 dose of morphine, and did a EKG with patient. Pain dropped to a level 5 and patient stated pain level was trending down. 2211 Had hospitalist Sylvia physically review EKG printout results, and hospitalist physically signed ekg strip: notified hospitalist Sylvia of patient having 10/10 chest pain, provided 3 doses of nitro and 1 dose of morphine, ekg, pain level currently a 5/10 but trending down per patient, vitals, and patient is a medsurge patient. Hospitalist provided orders: cardio consult, stat cmnr-exv-nbo-lipid panel- mag- phos-3 serial troponin lab draw, make patient telemetry, aspirin 162 mg po daily with a dose now, metoprolol tartrate 50 mg BID with a dose now, Lipitor 20 mg daily with a dose given now. Verbally read back to hospitalist Sylvia. 2224 Patient is under the care of MD Cantu. Called MD Cantu, and spoke to MD Henry (account installation specialist) and notified MD Henry of the chest pain event, patient having 10/10 chest pain, provided 3 doses of nitro and 1 dose of morphine, pain level dropped down to a 5/10 pain level-per patient pain level trending down, ekg, vitals, and patient is a [facility]ge patient and hospitalist is aware of situation, hospitalist signed ekg, and hospitalist Sylvia provided orders: cardio consult, stat labs -qzn-xsx-ogqai panel- mag- phos-3 serial troponin lab draw/ make patient telemetry, aspirin 162 mg po daily with a dose now, metoprolol tartrate 50 mg BID with a dose now, Lipitor 20 mg daily with a dose given now. MD Henry adjusted orders and wanted to follow thru with his orders, MD Henry provided orders: cardio consult with MD Collazo and to call in consult in now, stat wnec-osr-idp-lipid panel- mag- phos-2 serial troponin lab draw 6 hour apart, make patient telemetry, aspirin 162 mg po daily with a dose now, metoprolol tartrate 25 mg BID with a dose now, Lipitor 20 mg daily with a dose given now. MD Henry wanted the RN to call back and give him lab results, update on patient status. Verbally read back and confirmed with MD Henry, will carry out with MD Henry orders-not hospitalist orders. 2234 Provided full report to Houston Glaser RN. Notified Houston of Chest pain event, and orders of MD Henry, with also a phone call back to MD Henry with lab results, and update on patient condition. ANIA Conrad acknowledge report given. 0000 Confirmed with Composite Laminator of cardio consult was called in with MD Collazo. Addendum: 02/28/20 at 0132 by Levi Lal RN charge nurse made aware of cp event, and orders for Telemetry, Charge told me to endorse patient to Houston JORGE.
[2020-02-28] MEDS: POTASSIUM CHL 20MEQ/100ML 100 ML IV SCH ×2 (01:28→04:35)
--- NOTE | 2020-02-28 02:22 | NUR ---
Patient Upgraded to Telemetry The patient was changed from Med-Surg to Telemetry during the 2300hr on 02/27/2020. The patient was having new onset chest which was the cause for the change. Completed my assessment of the patient, he is stable, in good spirits, tolerating treatments. His chest pain increased from 5 to 7/10. Informed Dr. Henry who ordered a Nitro Patch 0.2mg QD and now. Reassessed the patient after an hour and his chest pain was subsiding at 5/10. Called and left a message with Dr. Henry who wanted a follow up call on the patient's situation. Will continue to monitor.
[2020-02-28 05:00] VITALS: BP 140/86
[2020-02-28] MEDS: metroNIDAZOLE 500MG/100ML 100 ML IV SCH ×2 (06:00→13:48)
--- NOTE | 2020-02-28 07:30 | NUR ---
Opening Shift Note Assumed care of patient, awake and alert, slow to respond. No S/S of distress/SOB or pain on 1 LPM via nasal cannula. Instructed on POC and to call for assist PRN, will continue to monitor for changes Q1hr and PRN. Bed in low and locked position, rails up x2, no-slip socks on.
[2020-02-28 09:00] VITALS: BP 137/93
[2020-02-28] MEDS: ZINC SULFATE 220mg CAP or TAB PO SCH (09:08)
[2020-02-28] MEDS: ASCORBIC ACID 500 MG TAB PO SCH (09:08)
[2020-02-28] MEDS: PANTOPRAZOLE 40 MG TAB PO SCH (09:08)
[2020-02-28] MEDS: ENOXAPARIN SOD 40 MG/0.4 ML SYRINGE SC SCH (09:09)
[2020-02-28] MEDS: cefTRIAXone 1GM/50ML D5W 50 ML IV SCH (09:09)
[2020-02-28] MEDS ORDERED: METOPROLOL TARTRATE 25 MG TAB PO SCH (10:00)
[2020-02-28] MEDS ORDERED: ASPirin 81 mg TAB PO SCH (10:00)
[2020-02-28] MEDS ORDERED: NITROGLYCERIN 0.2MG/HR TOPICAL PATCH TD SCH (10:00)
[2020-02-28 13:01] VITALS: BP 119/74
--- NOTE | 2020-02-28 13:37 | NUR ---
DR SANDERSON AT BEDSIDE
[2020-02-28] MEDS ORDERED: ATOR20TA50 PO ×2 (13:38→14:05)
[2020-02-28] MEDS ORDERED: PANT40TA2 PO ×2 (13:40→14:05)
[2020-02-28 14:35] VITALS: BP 119/74
[2020-02-28] MEDS ORDERED: ATORVASTATIN 20 MG TAB PO SCH (22:00)
== END 2020-02-28 15:50 | disposition home or self-care (01) | DRG 207 ==
LOC: ER 10:45 → EDBD 10:45 → OVERFLOW 10:46 → WEST WING 20:10 → TELE-WESTW 02-27 22:44
PROVIDERS: ADMIT Emergency Medicine; ATTEND Hospitalist
PROC: 0DJ08ZZ Inspection of Upper Intestinal Tract, Via Natural or Artificial Opening Endoscopic (ICD-10-PCS; principal; 2020-02-27 09:31)
DX: I95.9 Hypotension, unspecified (principal); K92.0 Hematemesis; G93.41 Metabolic encephalopathy; E16.2 Hypoglycemia, unspecified; E86.0 Dehydration; D63.8 Anemia in other chronic diseases classified elsewhere; Z20.828 Contact with and (suspected) exposure to other viral communicable diseases; E78.5 Hyperlipidemia, unspecified; G40.909 Epilepsy, unspecified, not intractable, without status epilepticus; I11.0 Hypertensive heart disease with heart failure; I25.10 Atherosclerotic heart disease of native coronary artery without angina pectoris; K57.92 Diverticulitis of intestine, part unspecified, without perforation or abscess without bleeding; K21.9 Gastro-esophageal reflux disease without esophagitis; R64 Cachexia; I50.9 Heart failure, unspecified; I69.320 Aphasia following cerebral infarction; I69.359 Hemiplegia and hemiparesis following cerebral infarction affecting unspecified side; Z82.49 Family history of ischemic heart disease and other diseases of the circulatory system; Z68.1 Body mass index [BMI] 19.9 or less, adult; N17.9 Acute kidney failure, unspecified
CPT/HCPCS: 36415; 43235; 70450; 71045; 74176; 80048; 80053; 80061; 80307; 80320; 81001; 82140; 82962; 83605; 83735; 84100; 84484; 85025; 85610; 85730; 86850; 86870; 86900; 86901; 87040; 87081; 87086; 93005; 96360; 96361; 97163; 99291; G0378; J0696; J2001; J2250; J3480; J3490

== ENCOUNTER 2024-01-09 09:00 | Inpatient (IN) | payer MEDICAID ==
[~2024-01-09] VITALS: Ht 170.2 cm; Wt 62.0 kg
[~2024-01-09 09:00] MED LIST changes: +ATOR20TA50 PO; +LOSA-534 PO; -LOSA-69 PO; +PANT40TA2 PO
[2024-01-09 10:07] VITALS: PULSE 61; RESP 14; O2SAT 97
[2024-01-09 11:30] LABS: Basophils # (auto) 0 10 ^3/uL (0-0.2); Basophils % (auto) 0.5 % (0.0-2.0); Eosinophils # (auto) 0.3 10 ^3/uL (0-0.8); Eosinophils % (auto) 5.8 % (0.0-7.0); Hematocrit 42.7 % (41.0-53.0); Hemoglobin 14.3 g/dL (13.5-17.5); Lymphocytes # (auto) 1.9 10 ^3/uL (0.4-5.4); Lymphocytes % (auto) 38.6 % (10.0-50.0); Mean Corpuscular Hemoglobin 33.5 pg (28.0-32.0); Mean Corpuscular Hgb Conc. 33.5 g/dL (32.0-36.0); Mean Corpuscular Volume 100.2 fL (80.0-100.0); Monocytes # (auto) 0.5 10 ^3/uL (0-1.3); Monocytes % (auto) 10.5 % (0.0-12.0); Neutrophils # (auto) 2.2 10 ^3/uL (1.6-8.6); Neutrophils % (auto) 44.6 % (37.0-80.0); Nucleated Red Blood Cells % 0.2 %; Platelet Count (auto) 132 10^3/uL (140-450); Red Blood Cells 4.27 10^6/uL (4.5-5.90); Red Cell Distribution Width 16.8 % (11.8-14.3)
[2024-01-09 11:38] LABS: Urine Bacteria None Seen /hpf (None Seen)
[2024-01-09 11:42] LABS: Anion Gap 4 (5-15); Carbon Dioxide 30 mmol/L (20-31); Chloride 106 mmol/L (98-107); Potassium 4.7 mmol/L (3.5-5.1); Sodium 140 mmol/L (136-145)
[2024-01-09 11:43] LABS: Calcium 9.7 mg/dL (8.7-10.4)
[2024-01-09 11:46] LABS: INR 1.13 (0.9-1.15); Partial Thromboplastin Time 27.9 SEC (24.5-34.5); Prothrombin Time 11.9 sec (9.3-11.8)
[2024-01-09 11:47] LABS: Glucose 76 mg/dL (74-106)
[2024-01-09 11:48] LABS: BUN/Creatinine Ratio 26.5 (10.0-20.0); Blood Urea Nitrogen 26 mg/dL (9-23)
[2024-01-09 11:52] LABS: Urine Blood Negative /uL (Negative); Urine Clarity Clear (Clear); Urine Color Yellow (Yellow); Urine Protein, UAD Negative (Negative); Urine Specific Gravity 1.023 (1.001-1.035); Urine Urobilinogen 2 mg/dL (Negative); Urine WBC 1 /hpf (0 - 3)
[2024-01-09] MEDS ORDERED: NITROGLYCERIN 0.4 MG SL TAB SL PRN (12:30)
[2024-01-09] MEDS ORDERED: ONDANSETRON HCL 4 MG/2 ML VIAL IV PRN (12:30)
[2024-01-09] MEDS: SODIUM CHLORIDE 0.9% 1,000 ML IV SCH (15:06)
[2024-01-09] MEDS: PANTOPRAZOLE 40 MG/10 ML VIAL INJ IV ONE (15:06)
[2024-01-09 18:00] VITALS: BP 136/80; PULSE 69; RESP 18; TEMP 97.2; O2SAT 98
[2024-01-09] MEDS: MORPHINE SULFATE INJ 2 MG/ml SYRG IV PRN (18:47)
[2024-01-09 19:07] VITALS: RESP 16; O2SAT 95
[2024-01-09 20:00] VITALS: PULSE 94; RESP 18; O2SAT 96
[2024-01-09 21:00] VITALS: BP 186/94; PULSE 94; RESP 18; TEMP 97.4; O2SAT 93
[2024-01-09 21:35] VITALS: BP 143/94
[2024-01-10] VITALS (12 sets, daily range): BP systolic 130–153; BP diastolic 82–100; PULSE 66–123; RESP 12–18; TEMP 97.8–100; O2SAT 92–98
[2024-01-10 08:19] LABS: Alanine Aminotransferase 27 U/L (7-40); Albumin 3.7 g/dL (3.2-4.8); Alkaline Phosphatase 83 U/L (46-116); Anion Gap 9 (5-15); Aspartate Aminotransferase 34 U/L (13-40); BUN/Creatinine Ratio 18.9 (10.0-20.0); Bilirubin, Total 0.9 mg/dL (0.2-1.0); Blood Urea Nitrogen 17 mg/dL (9-23); Calcium 9.4 mg/dL (8.7-10.4); Carbon Dioxide 22 mmol/L (20-31); Chloride 108 mmol/L (98-107); Potassium 4.4 mmol/L (3.5-5.1); Sodium 139 mmol/L (136-145)
[2024-01-10 08:28] LABS: Glucose 69 mg/dL (74-106)
[2024-01-10] MEDS: PANTOPRAZOLE 40 MG/10 ML VIAL INJ IV SCH (10:56)
[2024-01-10 12:35] LABS: Basophils # (auto) 0 10 ^3/uL (0-0.2); Eosinophils # (auto) 0.2 10 ^3/uL (0-0.8); Eosinophils % (auto) 3.1 % (0.0-7.0); Lymphocytes # (auto) 1.6 10 ^3/uL (0.4-5.4); Monocytes # (auto) 0.6 10 ^3/uL (0-1.3); Nucleated Red Blood Cells % 0.1 %
[2024-01-10 12:37] LABS: Basophils % (auto) 0.4 % (0.0-2.0); Hematocrit 40.1 % (41.0-53.0); Hemoglobin 13.7 g/dL (13.5-17.5); Mean Corpuscular Hemoglobin 34.6 pg (28.0-32.0); Mean Corpuscular Hgb Conc. 34.1 g/dL (32.0-36.0); Mean Corpuscular Volume 101.5 fL (80.0-100.0); Monocytes % (auto) 9.5 % (0.0-12.0); Neutrophils # (auto) 3.9 10 ^3/uL (1.6-8.6); Platelet Count (auto) 154 10^3/uL (140-450); Red Blood Cells 3.95 10^6/uL (4.5-5.90); Red Cell Distribution Width 16.6 % (11.8-14.3); White Blood Cell 6.3 10^3/uL (4.4-10.8)
[2024-01-10] MEDS ORDERED: PANT40T PO (13:29)
[2024-01-10] MEDS ORDERED: DOCU-94 PO (13:29)
[2024-01-10] MEDS ORDERED: GABA-1308 PO (13:29)
[2024-01-10] MEDS ORDERED: DICL1GEL73 TD (13:29)
[2024-01-10] MEDS ORDERED: POTA-36 PO (13:29)
[2024-01-10] MEDS ORDERED: HYDR-4072 PO (13:29)
[2024-01-10] MEDS ORDERED: ESCI20TA PO (13:29)
[2024-01-10] MEDS ORDERED: AMLO1TAB22 PO (13:29)
[2024-01-10] MEDS ORDERED: ERGO1CAP23 PO (13:29)
[2024-01-10] MEDS ORDERED: LEVE500T40 PO (13:29)
[2024-01-10] MEDS ORDERED: LIDO1.8P EX (13:29)
[2024-01-11] VITALS (8 sets, daily range): BP systolic 124–186; BP diastolic 84–105; PULSE 84–106; RESP 16–18; TEMP 97.7–99; O2SAT 91–97
[2024-01-11] MEDS: ceFAZolin 1GM/50ML 50 ML IV ONE (13:23)
[2024-01-11] MEDS: IODIXANOL 320MG/ML 100ML BTL IV ONE (13:24)
[2024-01-11] MEDS: MIDAZOLAM HCL 2MG/2ML 2ml VIAL (1mg/ml) ONE (13:24)
[2024-01-11] MEDS: LIDOCAINE 2%HCL (LOCAL ANESTH.) INJ 20ML MDV ONE (13:24)
[2024-01-11] MEDS: fentaNYL CITRATE 100 MCG/2 ML VL ONE (13:24)
[2024-01-12] VITALS (7 sets, daily range): BP systolic 147–157; BP diastolic 100–115; PULSE 97–117; RESP 16–18; TEMP 97.8–98.7; O2SAT 96–97
[2024-01-12] MEDS: amLODIPine BESYLATE 5 MG TAB GT SCH (10:00)
[2024-01-12] MEDS: Jevity 1.2 Cal/Fiber 1 Liter GT SCH (14:43)
[2024-01-13 05:00] VITALS: BP 144/95; PULSE 97; RESP 16; TEMP 97.9; O2SAT 97
[2024-01-13 09:00] VITALS: BP 151/99; PULSE 81; RESP 17; TEMP 98.5; O2SAT 92
[2024-01-13 13:00] VITALS: BP_SYST 132; BP_SYST 146; BP_DIAS 82; BP_DIAS 93; PULSE 68; PULSE 77; RESP 17; RESP 20; TEMP 97.2; TEMP 98.3; O2SAT 94; O2SAT 98
[2024-01-13 17:00] VITALS: BP 147/92; PULSE 75; RESP 17; TEMP 98.1; O2SAT 96
[2024-01-13 20:00] VITALS: PULSE 79; RESP 18; O2SAT 91
[2024-01-13 21:00] VITALS: BP 151/110; PULSE 79; RESP 18; TEMP 97.8; O2SAT 91
[2024-01-14] VITALS (8 sets, daily range): BP systolic 141–180; BP diastolic 86–108; PULSE 50–81; RESP 12–18; TEMP 97.5–98.2; O2SAT 95–99
[2024-01-14] MEDS: fentaNYL CITRATE 100 MCG/2 ML VL ONE (11:56)
[2024-01-14] MEDS: LIDOCAINE 2%HCL (LOCAL ANESTH.) INJ 20ML MDV ONE (11:57)
[2024-01-14] MEDS: MIDAZOLAM HCL 2MG/2ML 2ml VIAL (1mg/ml) ONE (11:57)
[2024-01-15] VITALS (8 sets, daily range): BP systolic 142–157; BP diastolic 76–93; PULSE 63–74; RESP 16–18; TEMP 97.9–98.6; O2SAT 95–99
[2024-01-15] MEDS: DOCUSATE SOD 100 MG CAP PO PRN (08:45)
[2024-01-16 01:00] VITALS: BP 154/89; PULSE 60; RESP 16; TEMP 97.5; O2SAT 97
[2024-01-16 05:00] VITALS: BP 143/87; PULSE 66; RESP 16; TEMP 97.4; O2SAT 97
[2024-01-16 08:00] VITALS: PULSE 56; RESP 16; O2SAT 97
[2024-01-16 09:10] VITALS: BP 147/92; PULSE 56; RESP 16; TEMP 98.4; O2SAT 97
[2024-01-16 12:54] VITALS: BP 139/85; PULSE 61; RESP 16; TEMP 98; O2SAT 97
[2024-01-16 13:42] VITALS: BP 133/83; PULSE 87; RESP 17; TEMP 98.4; O2SAT 96
== END 2024-01-16 18:13 | disposition home or self-care (01) | DRG 252 ==
LOC: EDBD 09:00 → ER 09:00 → EDUNIT# 09:00 → OVERFLOW 12:29 → WEST WING 17:27
PROVIDERS: ADMIT Nurse Practitioner Family; ATTEND Family Medicine
PROC: 0DH63UZ Insertion of Feeding Device into Stomach, Percutaneous Approach (ICD-10-PCS; principal; 2024-01-14)
PROC: BD12ZZZ Fluoroscopy of Stomach (ICD-10-PCS; 2024-01-14)
DX: K94.23 Gastrostomy malfunction (principal); I11.0 Hypertensive heart disease with heart failure; I69.351 Hemiplegia and hemiparesis following cerebral infarction affecting right dominant side; I50.9 Heart failure, unspecified; E78.00 Pure hypercholesterolemia, unspecified; Z74.01 Bed confinement status; Z88.8 Allergy status to other drugs, medicaments and biological substances; Y83.8 Other surgical procedures as the cause of abnormal reaction of the patient, or of later complication, without mention of misadventure at the time of the procedure; Z79.899 Other long term (current) drug therapy
CPT/HCPCS: 36415; 71045; 74176; 76000; 80048; 80053; 81001; 82962; 85025; 85610; 85730; 87086; 96374; 96375; 99152; G0378; J2250; J2470; Q9967

== ENCOUNTER 2024-03-27 12:12 | Emergency (ER) | payer MEDICAID ==
[~2024-03-27] VITALS: Ht 172.7 cm; Wt 54.5 kg
[~2024-03-27 12:12] MED LIST changes: +AMLO1TAB22 PO; -APIX5TAB OR; -CLON0.2T PO; +DICL1GEL73 TD; +DOCU-94 PO; +ERGO1CAP23 PO; +ESCI20TA PO; +GABA-1308 PO; +HYDR-4072 PO; +LEVE500T40 PO; +LIDO1.8P EX; -LOSA-534 PO; +PANT40T PO; -PANT40TA2 PO; +POTA-36 PO
[2024-03-27] MEDS: GASTROGRAFIN 30 ML SOL ONE (12:54)
--- NOTE | 2024-03-27 13:22 | DVH ---
Date: 03/27/2024 01:04 PM Examination: XY KUB ABDOMEN SINGLE VIEW History: CHECK G-TUBE CORRECTION Comparison: XY PERCUTANEOUS G TUBE PL on DOS: 01/14/24 TECHNIQUE: Frontal views of the abdomen was obtained. FINDINGS/IMPRESSION: Contrast is visualized in the stomach. Significant large stool burden in the rectosigmoid colon. Gas trostomy tube projects over the left upper quadrant. Left basilar atelectasis. The right flank is collimated from field of view. No acute osseous abnormality identified.
[2024-03-27 14:25] LABS: Basophils # (auto) 0 10 ^3/uL (0-0.2); Hematocrit 43.7 % (41.0-53.0); Lymphocytes # (auto) 1.5 10 ^3/uL (0.4-5.4); Monocytes # (auto) 0.7 10 ^3/uL (0-1.3)
[2024-03-27 14:27] LABS: Basophils % (auto) 0.2 % (0.0-2.0); Eosinophils # (auto) 0.1 10 ^3/uL (0-0.8); Eosinophils % (auto) 0.6 % (0.0-7.0); Hemoglobin 14.4 g/dL (13.5-17.5); Lymphocytes % (auto) 17.5 % (10.0-50.0); Mean Corpuscular Hemoglobin 34.1 pg (28.0-32.0); Mean Corpuscular Hgb Conc. 32.8 g/dL (32.0-36.0); Mean Corpuscular Volume 103.8 fL (80.0-100.0); Neutrophils # (auto) 6.5 10 ^3/uL (1.6-8.6); Neutrophils % (auto) 73.7 % (37.0-80.0); Nucleated Red Blood Cells % 0.1 %; Platelet Count (auto) 142 10^3/uL (140-450); Red Blood Cells 4.21 10^6/uL (4.5-5.90); Red Cell Distribution Width 14.1 % (11.8-14.3); White Blood Cell 8.8 10^3/uL (4.4-10.8)
[2024-03-27 14:49] LABS: Alanine Aminotransferase 20 U/L (7-40); Albumin 3.9 g/dL (3.2-4.8); Alkaline Phosphatase 87 U/L (46-116); Anion Gap 8 (5-15); Aspartate Aminotransferase 30 U/L (13-40); Carbon Dioxide 23 mmol/L (20-31); Glucose 93 mg/dL (74-106); Potassium 4.4 mmol/L (3.5-5.1); Sodium 141 mmol/L (136-145); Total Protein 7.5 g/dL (5.7-8.2)
[2024-03-27 15:00] LABS: Blood Urea Nitrogen 25 mg/dL (9-23); Calcium 10.5 mg/dL (8.7-10.4); Chloride 110 mmol/L (98-107)
[2024-03-27 15:04] LABS: Bilirubin, Total 0.5 mg/dL (0.2-1.0)
--- NOTE | 2024-03-27 15:36 | ED.PDOC ---
History of Present Illness HPI Comments HPI: Poor Historian. 68y M who presents to the ED via EMS for chief complaint of tube replacement. Pt has the following course of events: - pt is resident are long-term and noted pt G-tube was dislodged. assisted staff correctly placed the G-tube in place and called EMS for pt to be taken to local ED for G--tube replacement. - pt in the ED, is nonverbal, bed-ridden, and in no apparent distress VITALS: Temp: 98.9 F RR: 16 02 sat : 99% on room air HR: 79 BP: 124/84 PMH: CVA, HTN PSH: unknown Social history: denies tobacco use, denies ETOH use, denies drug use Medications: baclofen, gabapentin, lactulose Allergies: denies REVIEW OF SYSTEMS: CONSTITUTIONAL: Denies acute: fever, diaphoresis, chills, generalized weakness. HEAD: Denies acute: headache, photophobia Eyes: Denies acute: Double vision, vision loss, eye pain, eye discharge. EARS: Denies acute: tinnitus, hearing loss, ear discharge, ear pain, THROAT: Denies acute: sore throat, swelling, difficulty swallowing , pain with swallowing, change in voice. NECK: Denies acute: neck pain, neck swelling, stiff neck. HEART: Denies acute : chest pain, palpitations, LUNGS: Denies acute: SOB, wheezing, cough, hemoptysis ABDOMEN: Denies acute: abdominal pain, Nausea, Vomiting, diarrhea, melena , hematemesis, hematochezia SKIN: Denies acute: rash, redness, lesions, itchiness. EXTREMITIES: Denies acute: calf pain, numbness, tingling, weakness, denies pain in extremity. Denies acute: Low back pain. Neuro: Denies acute: focal neurological deficit, motor or sensory focal neurological deficit, tremors, seizure like activity, confusion, dizziness, change in mental status, loss of bowel or bladder function, cauda equina like symptoms. : Denies acute: dysuria, hematuria, flank pain, increase in urinary frequency. PSYCH: Denies acute: hallucination, suicidal ideation, homicidal ideation. PHYSICAL EXAM: General: no acute distress, awake and alert. Head: normocephalic, atraumatic. Neck: supple, trachea is midline, no swelling. Throat: Normal phonation. Eyes:, no erythema, no purulent discharge, no proptosis, no icterus. Heart: regular rate, regular rhythm, no significant murmur appreciated. Lungs: no apparent respiratory distress, Able to speak in full sentences. No wheezing, no rhonchi, no crackles. No stridors Clear to auscultation bilaterally. Abdomen: non tender to palpation, non distended, soft, no guarding, no rebound, + bowel sounds. Noted G-tube in place. No associated erythema. Neuro: Awake, Alert, oriented to name, self, Patient is nonverbal Skin: no petechia, no purpura, no cyanosis, non-pale, not jaundice. Lower extremities: --no - Pitting edema no deformity, no focal swelling, no calf TTP. Noted baseline extremity hyperflexion. Makes eye contact. Face: no apparent facial droop. Chief Complaint: Tube Replacement Time Seen by MD: 13:32 Primary Care Provider: UNKNOWN Reviewed Notes: Medications, Allergies Allergies: Coded Allergies: Carbamazepine (Verified Allergy, Unknown, 02/25/20) Home Meds Active Scripts Atorvastatin Calcium (ATORVASTATIN CALCIUM) 20 Mg Tab, 20 MG PO HS MDD ., #60 TAB Prov:MASTER DAVALOS MD 02/28/20 Reported Medications Levetiracetam (Keppra) 500 Mg Tab, 500 MG PO BID, TAB 01/10/24 Amlodipine Besylate (Amlodipine Besylate) 5 Mg Tab, 5 MG PO DAILY, MG 01/10/24 Escitalopram Oxalate (Lexapro) 20 Mg Tab, 20 MG PO DAILY, TAB 01/10/24 Lidocaine (Ztlido) 1.8 % Pad, 1.8 % EX DAILY, PAD 01/10/24 Diclofenac Sodium (Topical) (Diclofenac Sodium) 1 % Gel, 1 % TD UD, GEL 01/10/24 Potassium Chloride (POTASSIUM CHLORIDE CR) 10 Meq Tb, 10 MEQ PO DAILY, TAB 01/10/24 Ergocalciferol (VITAMIN D 57993 UNIT) 50,000 [place], [address] UNIT PO QWEEKLY, CAP 01/10/24 Docusate Sodium (Colace) 100 Mg Cap, 1 CAP PO BID PRN for FOR CONSTIPATION, CAP 01/10/24 Gabapentin (Gabapentin) 100 Mg Cap, 100 MG PO BID, MG 01/10/24 Hydrocodone-Acetaminophen (Hydrocodone/Acetaminophen 10-325 mg) 1 Tab Tab, 1 TAB PO QID PRN for PAIN SCALE 7 THRU 10 for 30 Days, #120 TAB 01/10/24 Pantoprazole Sodium Sesquihydr (Pantoprazole Sodium) 40 Mg Tab, 40 MG PO BID, TAB 01/10/24 Information Source: Emergency Med Personnel Mode of Arrival: EMS Past Medical History PAST MEDICAL HISTORY: CHF, CVA, High Lipids, HTN, Seizures Family History Family History: Pt Confused Social History Smoker: Non-Smoker Alcohol: Denies ETOH Use Drugs: Denies Drug Use Lives In: Home Was a procedure done? Was a procedure done?: No X-Ray, Labs, Meds, VS Vital Signs Date Time Temp Pulse Resp B/P (MAP) Pulse Ox O2 Delivery O2 Flow Rate FiO2 03/27/24 12:18 98.9 79 16 124/84 (97) 99 Lab Test 03/27/24 14:02 Range/Units White Blood Count 8.8 4.4-10.8 10^3/uL Red Blood Count 4.21 L 4.5-5.90 10^6/uL Hemoglobin 14.4 13.5-17.5 g/dL Hematocrit 43.7 41.0-53.0 % Mean Corpuscular Volume 103.8 H 80.0-100.0 fL Mean Corpuscular Hemoglobin 34.1 H 28.0-32.0 pg Mean Corpuscular Hemoglobin Concent 32.8 32.0-36.0 g/dL Red Cell Distribution Width 14.1 11.8-14.3 % Platelet Count 142 140-450 10^3/uL Mean Platelet Volume 8.3 6.9-10.8 fL Neutrophils (%) (Auto) 73.7 37.0-80.0 % Lymphocytes (%) (Auto) 17.5 10.0-50.0 % Monocytes (%) (Auto) 8.0 0.0-12.0 % Eosinophils (%) (Auto) 0.6 0.0-7.0 % Basophils (%) (Auto) 0.2 0.0-2.0 % Neutrophils # (Auto) 6.5 1.6-8.6 10 ^3/uL Lymphocytes # (Auto) 1.5 0.4-5.4 10 ^3/uL Monocytes # (Auto) 0.7 0-1.3 10 ^3/uL Eosinophils # (Auto) 0.1 0-0.8 10 ^3/uL Basophils # (Auto) 0 0-0.2 10 ^3/uL Nucleated Red Blood Cells 0.1 % Sodium Level 141 136-145 mmol/L Potassium Level 4.4 3.5-5.1 mmol/L Chloride Level 110 H 98-107 mmol/L Carbon Dioxide Level 23 20-31 mmol/L Anion Gap 8 5-15 Blood Urea Nitrogen 25 H 9-23 mg/dL Creatinine 1.00 0.700-1.30 mg/dL Glomerular Filtration Rate Calc 83 >90 mL/min BUN/Creatinine Ratio 25.0 H 10.0-20.0 Serum Glucose 93 74-106 mg/dL Calcium Level 10.5 H 8.7-10.4 mg/dL Total Bilirubin 0.5 0.2-1.0 mg/dL Aspartate Amino Transferase (AST) 30 13-40 U/L Alanine Aminotransferase (ALT) 20 7-40 U/L Alkaline Phosphatase 87 46-116 U/L Total Protein 7.5 5.7-8.2 g/dL Albumin 3.9 3.2-4.8 g/dL [place] [address] Ph: [phone] DIAGNOSTIC IMAGING Diagnostic Imaging Report : [id number] Signed PATIENT: DESIREE ANDRADE ACCT: [id number] UNIT: [id number] : 1955 LOC: ER ROOM / BED: / AGE / SEX: 68 / M ADM STATUS: REG ER SERVICE 1233 ORDERING PHYSICIAN: JAIRO GREGORY PROCEDURE(s): KUB - KUB ABDOMEN SINGLE VIEW REASON: CHECK G-TUBE CORRECTION ORDER NUMBER(s): [id number], ACCESSION NUMBER(s): [id number] Date: 03/27/2024 01:04 PM Examination: XY KUB ABDOMEN SINGLE VIEW History: CHECK G-TUBE CORRECTION Comparison: XY PERCUTANEOUS G TUBE PL on DOS: 01/14/24 TECHNIQUE: Frontal views of the abdomen was obtained. FINDINGS/IMPRESSION: Contrast is visualized in the stomach. Significant large stool burden in the rectosigmoid colon. Gastrostomy tube projects over the left upper quadrant. Left basilar atelectasis. The right flank is collimated from field of view. No acute osseous abnormality identified. ATED BY: CAMILO LUNA MD DICTATED DATE/TIME: 03/27/241320 SIGNED BY: CAMILO LUNA MD SIGNED DATE/TIME: 03/27/241320 CC: Patient Education/Counseling: Other (pt nonverbal) Family Education/Counseling: No Family Present Additional Information Patient presented with the above HPI.-- tube replacement---workup was initiated. patient was found with the above mentioned diagnosis. the following medications were ordered: Gastrografin the following tests were ordered: CBC, CMP, KUB abdomen Patient ED course and VS have been stabilized. Patient has been reassessed in [facility] ED and remained in a stable condition. Patient has been observed in the ED adequate length of time to insure improvement/stability. Escalation of care considered: Consideration of escalation to observation or admission. patient was admitted to the medicine team for further evaluation and treatment of their presentation. All the reports of any imaging studies that were ordered by myself were reviewed by myself. Departure 1 Departure Time of Disposition: 17:48 Impression: Primary Impression: Encounter for gastrojejunal tube placement Disposition: HOME / SELF CARE / HOMELESS Condition: Stable Additional Instructions: Additional discharge instructions: You MUST follow-up with your primary care/family doctor in 1 to 2 days. If you are unable to see your primary care/family doctor, please return to our emergency room for re-assessment and re-evaluation in 1 to 2 days. Return to the emergency room here in our facility or to the nearest ER [facility] if your symptoms change or worsen. CONSULTATIONS: you MUST Follow-up for consultation as soon as possible with: -gastroenterology in 1-2 days. Please call for appointment You MUST call the consultants office yourself to make an appointment. You may need to arrange that through your insurance and/or your primary/family doctor. If you are unable to see the center consultant in 1 to 2 days, you must return to our emergency room (or any other ER of your choice) for re-assessment and re- evaluation. Adequate fluid hydration. Below is a copy of your radiological report for follow up: [address] - [address] Ph: [phone] DIAGNOSTIC IMAGING Diagnostic Imaging Report : [id number] Signed PATIENT: DESIREE ANDRADE ACCT: [id number] UNIT: [id number] : 1955 LOC: ER ROOM / BED: / AGE / SEX: 68 / M ADM STATUS: REG ER SERVICE 1233 ORDERING PHYSICIAN: JAIRO GREGORY PROCEDURE(s): KUB - KUB ABDOMEN SINGLE VIEW REASON: CHECK G-TUBE CORRECTION ORDER NUMBER(s): [id number], ACCESSION NUMBER(s): [id number] Date: 03/27/2024 01:04 PM Examination: XY KUB ABDOMEN SINGLE VIEW History: CHECK G-TUBE CORRECTION Comparison: XY PERCUTANEOUS G TUBE PL on DOS: 01/14/24 TECHNIQUE: Frontal views of the abdomen was obtained. FINDINGS/IMPRESSION: Contrast is visualized in the stomach. Significant large stool burden in the rectosigmoid colon. Gastrostomy tube projects over the left upper quadrant. Left basilar atelectasis. The right flank is collimated from field of view. No acute osseous abnormality identified. ATED BY: CAMILO LUNA MD DICTATED DATE/TIME: 03/27/24 1321 SIGNED BY: CAMILO LUNA MD SIGNED DATE/TIME: 03/27/24 1321 CC: Discharged With: Self Critical Care Note Critical Care Time?: No I personally scribed for CAROL POLLOCK DO ([email or web address]) on 03/27/24 at 15:36. Electronically submitted by Greer Morelos ([facility] I personally scribed for CAROL POLLOCK DO ([email or web address]) on 03/27/24 at 16:15. Electronically submitted by Greer Morelos ([facility] I personally scribed for CAORL POLLOCK DO ([email or web address]) on 03/27/24 at 16:18. Electronically submitted by Greer Morelos ([facility] I personally scribed for CAROL POLLOCK DO ([email or web address]) on 03/27/24 at 22:20. Electronically submitted by Greer Morelos ([email or web address]). CAROL POLLOCK DO Mar 27, 2024 15:36
[2024-03-28 05:18] VITALS: PULSE 121; RESP 24; TEMP 99.1; O2SAT 92
[2024-03-28] MEDS ORDERED: MORPHINE SULFATE 4 MG/ML SYR/VIAL IV ONE (06:30)
[2024-03-28] MEDS ORDERED: SODIUM CHLORIDE 0.9% 1,000 ML IV ONE (06:30)
[2024-03-28] MEDS ORDERED: ONDANSETRON HCL 4 MG/2 ML VIAL IV ONE (06:30)
[2024-03-28 07:00] VITALS: BP 149/99
[2024-03-28 07:45] VITALS: PULSE 104; RESP 20; O2SAT 92
[2024-03-28] MEDS: KETOROLAC TROMETH 60MG/2ML VIAL IM ONE (07:56)
== END 2024-03-28 08:04 | disposition home or self-care (01) ==
LOC: EDBD 12:12 → ER 12:12
DX: I11.0 Hypertensive heart disease with heart failure (principal); I50.9 Heart failure, unspecified; E78.5 Hyperlipidemia, unspecified; Z93.1 Gastrostomy status; Z79.899 Other long term (current) drug therapy; Z86.73 Personal history of transient ischemic attack (TIA), and cerebral infarction without residual deficits
CPT/HCPCS: 36415; 74018; 80053; 82962; 85025; 96372; 99284; J1885; Q9963

== ENCOUNTER 2024-08-15 10:12 | Inpatient (IN) | payer MEDICAID ==
[~2024-08-15] VITALS: Ht 177.8 cm; Wt 57.0 kg
--- NOTE | 2024-08-15 10:34 | ED.PDOC ---
GI ASSESSMENT HPI Comments 69 y/o M is BIBA for PEG tube problem. Patient is bed-bound, non-verbal, non-ambulatory, and a resident of a skilled- nursing facility. Faculty at facility said that while they were moving the patient the PEG tube got caught in something and the port/tip of the PEG tube was torn. Patient did not take any of his medicine this morning. Patient no current complaints. Vitals on scene: blood pressure of 120/94, pulse of 97, respiratory rate of 14, SpO2 of 94% RA, blood glucose of 84 Vitals upon arrival: blood pressure of, pulse of 78, respiratory rate of 14, Spo2 of 9 4% O2 NC, temperature of 96.6F Past medical history: aneurysm, CHF, CVA - bed-bound, HLD, HTN, seizures , frequent UTIs Past surgical history: 14 [place], 3-5 ml PEG tube HPI: Poor Historian. REVIEW OF SYSTEMS: Limited given the patient's nonverbal status and stroke but per EMS. CONSTITUTIONAL: Denies acute: fever, diaphoresis, chills, generalized weakness. HEAD: Denies acute: headache, photophobia Eyes: Denies acute: Double vision, vision loss, eye pain, eye discharge. EARS: Denies acute: tinnitus, hearing loss, ear discharge, ear pain, THROAT: Denies acute: sore throat, swelling, difficulty swallowing , pain with swallowing, change in voice. NECK: Denies acute: neck pain, neck swelling, stiff neck. HEART: Denies acute : chest pain, palpitations, LUNGS: Denies acute: SOB, wheezing, cough, hemoptysis ABDOMEN: Denies acute: abdominal pain, Nausea, Vomiting, diarrhea, melena , hematemesis, hematochezia SKIN: Denies acute: rash, redness, lesions, itchiness. EXTREMITIES: Denies acute: calf pain, numbness, tingling, weakness, denies pain in extremity. Denies acute: Low back pain. Neuro: Denies acute: focal neurological deficit, motor or sensory focal neurological deficit, tremors, seizure like activity, confusion, dizziness, change in mental status, loss of bowel or bladder function, cauda equina like symptoms. : Denies acute: dysuria, hematuria, flank pain, increase in urinary frequency. PSYCH: Denies acute: hallucination, suicidal ideation, homicidal ideation. PHYSICAL EXAM: General: ---no-----acute distress, awake and alert. Head: normocephalic, atraumatic. Neck: supple, trachea is midline, no swelling. Throat: Normal phonation. Eyes:, no erythema, no purulent discharge, no proptosis, no icterus. Heart: regular rate, regular rhythm, no significant murmur appreciated. Lungs: no apparent respiratory distress, No wheezing, no rhonchi, no crackles. No stridors Clear to auscultation bilaterally. Abdomen: non tender to palpation, non distended, soft, no guarding, no rebound, + bowel sounds. Noted PEG tube in place however the tip of the PEG tube where the ports are has been torn. This tube will need to be replaced. Neuro: Awake, Alert, Skin: no petechia, no purpura, no cyanosis, non-pale, not jaundice. Lower extremities: --no - Pitting edema no deformity, no focal swelling, no calf TTP. Noted baseline 4 extremities hyperflexion and contractures. Makes eye contact. Face: no apparent facial droop. ED COURSE: Chief Complaint: Tube Replacement Time Seen by MD: 10:20 Primary Care Provider: UNKNOWN Reviewed Notes: Nurses Notes, Loop Drier Operator Notes, Medications, Allergies Allergies: Coded Allergies: Carbamazepine (Verified Allergy, Unknown, 02/25/20) Home Meds Active Scripts Atorvastatin Calcium (ATORVASTATIN CALCIUM) 20 Mg Tab, 20 MG PO HS MDD ., #60 TAB Prov:MASTER DAVALOS MD 02/28/20 Reported Medications Levetiracetam (Keppra) 500 Mg Tab, 500 MG PO BID, TAB 01/10/24 Amlodipine Besylate (Amlodipine Besylate) 5 Mg Tab, 5 MG PO DAILY, MG 01/10/24 Escitalopram Oxalate (Lexapro) 20 Mg Tab, 20 MG PO DAILY, TAB 01/10/24 Lidocaine (Ztlido) 1.8 % Pad, 1.8 % EX DAILY, PAD 01/10/24 Diclofenac Sodium (Topical) (Diclofenac Sodium) 1 % Gel, 1 % TD UD, GEL 01/10/24 Potassium Chloride (POTASSIUM CHLORIDE CR) 10 Meq Tb, 10 MEQ PO DAILY, TAB 01/10/24 Ergocalciferol (VITAMIN D 84259 UNIT) 50,000 [place], [address] UNIT PO QWEEKLY, CAP 01/10/24 Docusate Sodium (Colace) 100 Mg Cap, 1 CAP PO BID PRN for FOR CONSTIPATION, CAP 01/10/24 Gabapentin (Gabapentin) 100 Mg Cap, 100 MG PO BID, MG 01/10/24 Hydrocodone-Acetaminophen (Hydrocodone/Acetaminophen 10-325 mg) 1 Tab Tab, 1 TAB PO QID PRN for PAIN SCALE 7 THRU 10 for 30 Days, #120 TAB 01/10/24 Pantoprazole Sodium Sesquihydr (Pantoprazole Sodium) 40 Mg Tab, 40 MG PO BID, TAB 01/10/24 Information Source: Patient, Emergency Med Personnel Mode of Arrival: EMS Past Medical History PAST MEDICAL HISTORY: CHF, CVA, High Lipids, HTN, Seizures Past Medical History (Other): aneurysm Surgical History (Other): PICC line Family History Family History: Pt Confused Social History Smoker: Non-Smoker Alcohol: Denies ETOH Use Drugs: Denies Drug Use Lives In: Home Was a procedure done? Was a procedure done?: No GI differential Dx Differential Diagnosis: N/A X-Ray, Labs, Meds, VS Vital Signs Date Time Temp Pulse Resp B/P (MAP) Pulse Ox O2 Delivery O2 Flow Rate FiO2 08/15/24 12:00 97.3 96 12 130/94 (106) 98 97.3 08/15/24 10:45 97.1 83 12 119/85 (96) 96 97.1 08/15/24 10:45 83 12 96 Room Air* 0 21 08/15/24 10:21 96.6 78 14 125/92 (103) 94 96.6 Lab Test 08/15/24 11:00 Range/Units White Blood Count 4.7 4.4-10.8 10^3/uL Red Blood Count 4.52 4.5-5.90 10^6/uL Hemoglobin 15.1 13.5-17.5 g/dL Hematocrit 44.1 41.0-53.0 % Mean Corpuscular Volume 97.6 80.0-100.0 fL Mean Corpuscular Hemoglobin 33.4 H 28.0-32.0 pg Mean Corpuscular Hemoglobin Concent 34.3 32.0-36.0 g/dL Red Cell Distribution Width 15.1 H 11.8-14.3 % Platelet Count 248 140-450 10^3/uL Mean Platelet Volume 7.1 6.9-10.8 fL Neutrophils (%) (Auto) 74.5 37.0-80.0 % Lymphocytes (%) (Auto) 16.4 10.0-50.0 % Monocytes (%) (Auto) 7.4 0.0-12.0 % Eosinophils (%) (Auto) 1.1 0.0-7.0 % Basophils (%) (Auto) 0.6 0.0-2.0 % Neutrophils # (Auto) 3.5 1.6-8.6 10 ^3/uL Lymphocytes # (Auto) 0.8 0.4-5.4 10 ^3/uL Monocytes # (Auto) 0.4 0-1.3 10 ^3/uL Eosinophils # (Auto) 0.1 0-0.8 10 ^3/uL Basophils # (Auto) 0 0-0.2 10 ^3/uL Nucleated Red Blood Cells 0.0 % Sodium Level 130 L 136-145 mmol/L Potassium Level 4.0 3.5-5.1 mmol/L Chloride Level 96 L 98-107 mmol/L Carbon Dioxide Level 25 20-31 mmol/L Anion Gap 9 5-15 Blood Urea Nitrogen 8 L 9-23 mg/dL Creatinine 0.73 0.700-1.30 mg/dL Glomerular Filtration Rate Calc 100 >90 mL/min BUN/Creatinine Ratio 11.0 10.0-20.0 Serum Glucose 86 74-106 mg/dL Lactic Acid Level 0.9 0.4-2.0 mmol/L Calcium Level 10.4 8.7-10.4 mg/dL Total Bilirubin 1.0 0.2-1.0 mg/dL Aspartate Amino Transferase (AST) 31 13-40 U/L Alanine Aminotransferase (ALT) 23 7-40 U/L Alkaline Phosphatase 147 H 46-116 U/L Troponin I High Sensitivity 5 </=54 ng/L B-Type Natriuretic Peptide 19.66 0-100 pg/mL Total Protein 8.2 5.7-8.2 g/dL Albumin 4.3 3.2-4.8 g/dL [facility] [id number] [facility] [address] Ph: [phone] DIAGNOSTIC IMAGING Diagnostic Imaging Report : [id number] Signed PATIENT: DESIREE ANDRADE ACCT: [id number] UNIT: [id number] : 1955 LOC: ER ROOM / BED: / AGE / SEX: 69 / M ADM STATUS: REG ER SERVICE 1024 ORDERING PHYSICIAN: CAROL OPLLOCK DO PROCEDURE(s): KUB - KUB ABDOMEN SINGLE VIEW REASON: PEG TUBE PORT TEAR. ORDER NUMBER(s): [id number], ACCESSION NUMBER(s): [id number] CLINICAL HISTORY: 69 years old, Male; PEG TUBE PORT TEAR. TECHNIQUE: Single AP abdominal radiograph was obtained. COMPARISON: XY KUB ABDOMEN SINGLE VIEW on DOS: 03/27/24, XY PERCUTANEOUS G TUBE PL on DOS: 01/14/24 FINDINGS: A catheter extends to the central aspect of the upper abdomen, may correlate with reported history of PEG tube. Nonspecific mildly distended gas- filled small bowel loops. Dense stool in the rectosigmoid colon. IVC filter visualized just to the right of midline postsurgical changes of open reduction internal fixation of the right proximal femur partially visualized. IMPRESSION: 1. Nonspecific nonobstructive bowel gas pattern. 2. Catheter tubing extends to the central aspect of the upper abdomen, likely correlating with the PEG tube. 3. Large amount of stool in the rectosigmoid colon. ATED BY: JOSE DAVID CHOU DO DICTATED DATE/TIME: 08/15/24 115 SIGNED BY: JOSE DAVID CHOU DO SIGNED DATE/TIME: 08/15/24 115 CC: Time of 1ST Reevaluation: 10:50 Reevaluation 1ST: Unchanged Patient Education/Counseling: Other Family Education/Counseling: No Family Present Comments Patient presented with the above HPI.--PEG tube tear----workup was initiated. patient was found with the above mentioned diagnosis. the following medications were ordered: please refer to order lists of meds and tests obtained by myself Dr. Pollock. Patient ED course and VS have been stabilized. Patient has been reassessed in the ED and remained in a stable condition. Pertinent incidental findings were discussed with the patient and/or family. Patient/family voices understanding and is agreeable with plan. Patient has been observed in the ED adequate length of time to insure improvement/stability. Escalation of care considered: Consideration of escalation to observation or admission Patient was ADMITTED to the medicine team for further evaluation and treatment of their presentation. Patient will benefit from GI evaluation and reinsertion of the PEG tube All the reports of any imaging studies that were ordered by myself were reviewed by myself. Departure 1 Departure Time of Disposition: 13:02 Impression: Primary Impression: PEG tube malfunction Disposition: ADMITTED INPATIENT Admit to: Tele Condition: Guarded Discharged With: Self Critical Care Note Critical Care Time?: No I personally scribed for CAROL POLLOCK DO ([email or web address]) on 08/15/24 at 10:34. Electronically submitted by Maximo Gil ([email or web address]). I personally scribed for CAROL POLLOCK DO ([email or web address]) on 08/15/24 at 11:11. Electronically submitted by Maximo Gil ([email or web address]). I personally scribed for CAROL POLLOCK DO ([email or web address]) on 08/15/24 at 12:18. Electronically submitted by Maximo Gil ([email or web address]). I personally scribed for CAROL POLLOCK DO ([email or web address]) on 08/15/24 at 12:52. Electronically submitted by Maximo Gil ([email or web address]). CAROL POLLOCK DO August 15, 2024 10:34
[2024-08-15 10:45] VITALS: PULSE 83; RESP 12; O2SAT 96
[2024-08-15 11:22] LABS: Basophils # (auto) 0 10 ^3/uL (0-0.2); Basophils % (auto) 0.6 % (0.0-2.0); Eosinophils # (auto) 0.1 10 ^3/uL (0-0.8); Eosinophils % (auto) 1.1 % (0.0-7.0); Hematocrit 44.1 % (41.0-53.0); Hemoglobin 15.1 g/dL (13.5-17.5); Lymphocytes # (auto) 0.8 10 ^3/uL (0.4-5.4); Lymphocytes % (auto) 16.4 % (10.0-50.0); Mean Corpuscular Hemoglobin 33.4 pg (28.0-32.0); Mean Corpuscular Hgb Conc. 34.3 g/dL (32.0-36.0); Mean Corpuscular Volume 97.6 fL (80.0-100.0); Monocytes # (auto) 0.4 10 ^3/uL (0-1.3); Monocytes % (auto) 7.4 % (0.0-12.0); Neutrophils # (auto) 3.5 10 ^3/uL (1.6-8.6); Neutrophils % (auto) 74.5 % (37.0-80.0); Platelet Count (auto) 248 10^3/uL (140-450); Red Blood Cells 4.52 10^6/uL (4.5-5.90); Red Cell Distribution Width 15.1 % (11.8-14.3); White Blood Cell 4.7 10^3/uL (4.4-10.8)
[2024-08-15 11:39] LABS: Alanine Aminotransferase 23 U/L (7-40); Albumin 4.3 g/dL (3.2-4.8); Anion Gap 9 (5-15); Aspartate Aminotransferase 31 U/L (13-40); Carbon Dioxide 25 mmol/L (20-31); Glucose 86 mg/dL (74-106)
[2024-08-15 11:48] LABS: Alkaline Phosphatase 147 U/L (46-116); Blood Urea Nitrogen 8 mg/dL (9-23); Calcium 10.4 mg/dL (8.7-10.4); Chloride 96 mmol/L (98-107); Sodium 130 mmol/L (136-145); Total Protein 8.2 g/dL (5.7-8.2)
--- NOTE | 2024-08-15 11:53 | DVH ---
CLINICAL HISTORY: 69 years old, Male; PEG TUBE PORT TEAR. TECHNIQUE: Single AP abdominal radiograph was obtained. COMPARISON: XY KUB ABDOMEN SINGLE VIEW on DOS: 03/27/24, XY PERCUTANEOUS G TUBE PL on DOS: 01/14/24 FINDINGS: A catheter extends to the central aspect of the upper abdomen, may correlate with reported history of PEG tube. Nonspecific mildly distended gas-filled small bowel loops. Dense stool in the rectosigmoid colon. IVC filter visualized just to the right of midline postsurgical changes of open r eduction internal fixation of the right proximal femur partially visualized. IMPRESSION: 1. Nonspecific nonobstructive bowel gas pattern. 2. Catheter tubing extends to the central aspect of the upper abdomen, likely correlating with the PE G tube. 3. Large amount of stool in the rectosigmoid colon.
--- NOTE | 2024-08-15 15:24 | DVHHP2 ---
History of Present Illness Reason for Visit: Malfunction PEG tube History of Present Illness This is a 69-year-old male who is malnourished/ contracted to upper and lower extremities history of aneurysm, CHF, CVA, hyperlipidemia, hypertension, seizure and frequent UTI who was brought in by ambulance for malfunctioning of PEG tube as it was caught in something and the port/tip of the PEG tube was torn off. The patient is bed-bound, nonverbal, nonambulatory and a resident of a shelter facility but recently resides with his nephew. The patient is a poor historian unable to answer any questions when asked during assessment. The patient is currently in no distress, eyes open and able to squeeze hand when asked to. The patient will be admitted under hospitalist care to the medical- surgical unit. Consult with GI specialist has been initiated as current PEG two we will need to be removed and new one we will need to be placed. Unable to obtain further information from the patient regarding symptoms due to being nonverbal. The plan has been discussed with the primary RN in which questions and concerns have been addressed. Cardiovascular: CHF, HTN, hyperipidemia CHILD AND ADOLESCENT PSYCHOLOGIST: CVA Renal/: UTI Past Medical History Seizure Aneurysm Past Surgical History Fourteen [place], 3-5 mL peg tube Family History Unknown Lives: with Family Domestic Violence: Neg Past Social History Unknown Review of Systems Gastrointestinal: Other (Malfunction PEG tube) Musculoskeletal: other (Fully contracted upper and lower extremities) Allergies: Coded Allergies: Carbamazepine (Verified Allergy, Unknown, 02/25/20) Medications Current Medications Medications Dose Ordered Sig/Ajith Route Start Time Stop Time Status Last Admin Dose Admin Sodium Chloride 1,000 ml @ 60 mls/hr [id number] IV 08/15/24 15:15 Exam Vital Signs Vital Signs Date Time Temp Pulse Resp B/P (MAP) Pulse Ox O2 Delivery O2 Flow Rate FiO2 08/15/24 12:00 97.3 96 12 130/94 (106) 98 97.3 08/15/24 10:45 Room Air* 0 21 General Appearance: Alert (Eyes open) HEENT: Atraumatic, PERRLA, EOMI Respiratory: Clear to auscultation, Normal air movement Cardiovascular: Normal S1, Normal S2, No murmurs Abdominal: Normal bowel sounds, Soft, No tenderness, No hepatospenomegaly, No masses Labs/Xrays Labs Test 08/15/24 11:00 Range/Units White Blood Count 4.7 4.4-10.8 10^3/uL Red Blood Count 4.52 4.5-5.90 10^6/uL Hemoglobin 15.1 13.5-17.5 g/dL Hematocrit 44.1 41.0-53.0 % Mean Corpuscular Volume 97.6 80.0-100.0 fL Mean Corpuscular Hemoglobin 33.4 H 28.0-32.0 pg Mean Corpuscular Hemoglobin Concent 34.3 32.0-36.0 g/dL Red Cell Distribution Width 15.1 H 11.8-14.3 % Platelet Count 248 140-450 10^3/uL Mean Platelet Volume 7.1 6.9-10.8 fL Neutrophils (%) (Auto) 74.5 37.0-80.0 % Lymphocytes (%) (Auto) 16.4 10.0-50.0 % Monocytes (%) (Auto) 7.4 0.0-12.0 % Eosinophils (%) (Auto) 1.1 0.0-7.0 % Basophils (%) (Auto) 0.6 0.0-2.0 % Neutrophils # (Auto) 3.5 1.6-8.6 10 ^3/uL Lymphocytes # (Auto) 0.8 0.4-5.4 10 ^3/uL Monocytes # (Auto) 0.4 0-1.3 10 ^3/uL Eosinophils # (Auto) 0.1 0-0.8 10 ^3/uL Basophils # (Auto) 0 0-0.2 10 ^3/uL Nucleated Red Blood Cells 0.0 % Sodium Level 130 L 136-145 mmol/L Potassium Level 4.0 3.5-5.1 mmol/L Chloride Level 96 L 98-107 mmol/L Carbon Dioxide Level 25 20-31 mmol/L Anion Gap 9 5-15 Blood Urea Nitrogen 8 L 9-23 mg/dL Creatinine 0.73 0.700-1.30 mg/dL Glomerular Filtration Rate Calc 100 >90 mL/min BUN/Creatinine Ratio 11.0 10.0-20.0 Serum Glucose 86 74-106 mg/dL Lactic Acid Level 0.9 0.4-2.0 mmol/L Calcium Level 10.4 8.7-10.4 mg/dL Total Bilirubin 1.0 0.2-1.0 mg/dL Aspartate Amino Transferase (AST) 31 13-40 U/L Alanine Aminotransferase (ALT) 23 7-40 U/L Alkaline Phosphatase 147 H 46-116 U/L Troponin I High Sensitivity 5 </=54 ng/L B-Type Natriuretic Peptide 19.66 0-100 pg/mL Total Protein 8.2 5.7-8.2 g/dL Albumin 4.3 3.2-4.8 g/dL ORDERING PHYSICIAN: CAROL POLLOCK DO PROCEDURE(s): KUB - KUB ABDOMEN SINGLE VIEW REASON: PEG TUBE PORT TEAR. ORDER NUMBER(s): [id number], ACCESSION NUMBER(s): [id number] CLINICAL HISTORY: 69 years old, Male; PEG TUBE PORT TEAR. TECHNIQUE: Single AP abdominal radiograph was obtained. COMPARISON: XY KUB ABDOMEN SINGLE VIEW on DOS: 03/27/24, XY PERCUTANEOUS G TUBE PL on DOS: 01/14/24 FINDINGS: A catheter extends to the central aspect of the upper abdomen, may correlate with reported history of PEG tube. Nonspecific mildly distended gas- filled small bowel loops. Dense stool in the rectosigmoid colon. IVC filter visualized just to the right of midline postsurgical changes of open reduction internal fixation of the right proximal femur partially visualized. IMPRESSION: 1. Nonspecific nonobstructive bowel gas pattern. 2. Catheter tubing extends to the central aspect of the upper abdomen, likely correlating with the PEG tube. 3. Large amount of stool in the rectosigmoid colon. ATED BY: JOSE DAVID ANGELES DO DICTATED DATE/TIME: 08/15/24 1151 SIGNED BY: JOSE DAVID ANGELES DO SIGNED DATE/TIME: 08/15/24 1151 CC: Assessment/Plan Assessment/Plan Malfunctioning PEG tube---patient brought in by ambulance for PEG tube problems as it got caught in something and the ports/tip of the PEG tube was torn off The patient is bed-bound, nonverbal, nonambulatory and a recent resident of a shelter facility currently living with nephew Bilateral upper and lower extremity fully contracted Admit to medical-surgical unit Reviewed CBC which is normal Reviewed BMP with sodium 130 Lactic acid 0.9 Reviewed chest x-ray which shows large stool in rectosigmoid colon /PEG tube IV hydration IV Protonix now and daily NPO status Fleet enema Consult GI specialist for removal and placement of PEG tube Please notify patient nephew to obtain nutritional supplementation brand and schedule a feeding--start after GI specialist clearance once PEG tube fixed Assess for skin breakdown/turn q.2h hours Reconcile home med--hold meds for now DVT prophylaxis PUD prophylaxis Labs in a.m. Discussed plan of care with patient primary RN in which all questions concerns have been addressed Plan discussed with: Patient My Orders Orders - ED MARIE Procedure Category Date Status Time * Gi Dvh Coater Hand CONS 08/15/24 Transmitted 15:09 Admit ADMIT 08/15/24 Transmitted 15:09 Sodium Chloride 0.9% PHA 08/15/24 In Process 15:15 Complete Blood Count LAB 08/16/24 Verified 04:00 Comprehensive LAB 08/16/24 Verified Metabolic Panel 04:00 Condition: Fair WAQAR 08/15/24 In Process 15:09 Maintain Bed Rest WAQAR 08/15/24 In Process 15:09 Fleet Enema Adult PHA 08/15/24 In Process 15:15 Date of Service: August 15, 2024 Billing Provider: ED MARIE Common Visit Codes: [id number] INP/OBS CARE (HIGH) ED MARIE August 15, 2024 15:24
[2024-08-15] MEDS: SODIUM CHLORIDE 0.9% 1,000 ML IV SCH (16:28)
[2024-08-15 19:30] VITALS: PULSE 112; RESP 13; O2SAT 95
[2024-08-15] MEDS: FLEET ENEMA(ADULT) 135 ML PR ONE (20:55)
[2024-08-16 06:35] LABS: Basophils # (auto) 0 10 ^3/uL (0-0.2); Basophils % (auto) 0.4 % (0.0-2.0); Eosinophils # (auto) 0.1 10 ^3/uL (0-0.8); Eosinophils % (auto) 1.2 % (0.0-7.0); Hematocrit 41.1 % (41.0-53.0); Hemoglobin 13.8 g/dL (13.5-17.5); Lymphocytes # (auto) 1.3 10 ^3/uL (0.4-5.4); Lymphocytes % (auto) 15.2 % (10.0-50.0); Mean Corpuscular Hemoglobin 33.1 pg (28.0-32.0); Mean Corpuscular Hgb Conc. 33.6 g/dL (32.0-36.0); Mean Corpuscular Volume 98.6 fL (80.0-100.0); Monocytes # (auto) 0.7 10 ^3/uL (0-1.3); Monocytes % (auto) 8.3 % (0.0-12.0); Neutrophils # (auto) 6.4 10 ^3/uL (1.6-8.6); Neutrophils % (auto) 74.9 % (37.0-80.0); Nucleated Red Blood Cells % 0.1 %; Platelet Count (auto) 232 10^3/uL (140-450); Red Blood Cells 4.17 10^6/uL (4.5-5.90); Red Cell Distribution Width 15.1 % (11.8-14.3); White Blood Cell 8.5 10^3/uL (4.4-10.8)
[2024-08-16 06:42] LABS: Alanine Aminotransferase 20 U/L (7-40); Albumin 3.7 g/dL (3.2-4.8); Aspartate Aminotransferase 34 U/L (13-40); BUN/Creatinine Ratio 11.4 (10.0-20.0); Calcium 9.9 mg/dL (8.7-10.4); Carbon Dioxide 22 mmol/L (20-31); Total Protein 7.4 g/dL (5.7-8.2)
[2024-08-16 06:46] LABS: Anion Gap 11 (5-15); Chloride 101 mmol/L (98-107)
[2024-08-16 06:47] LABS: Potassium 3.4 mmol/L (3.5-5.1); Sodium 134 mmol/L (136-145)
[2024-08-16 06:48] LABS: Alkaline Phosphatase 128 U/L (46-116); Blood Urea Nitrogen 8 mg/dL (9-23); Glucose 71 mg/dL (74-106)
[2024-08-16 08:09] VITALS: PULSE 99; RESP 12; O2SAT 96
[2024-08-16] MEDS ORDERED: POTASSIUM EFFERVESENT TAB 25 MEQ GT ONE (08:30)
[2024-08-16] MEDS: POTASSIUM CHLORIDE 40 MEQ, LIDOCAINE 1% (LOCAL ANESTH.) 4 ML in SODIUM CHL 0.9% 250 ML IV ONE (13:08)
[2024-08-16 15:26] VITALS: RESP 12; O2SAT 96
--- NOTE | 2024-08-16 15:57 | DVHPNRES ---
Progress Note Date Seen: August 16, 2024 Resident Creating Document: INDRA AGUIRRE RESIDENT Has the PT tested + for MRSA If YES, has PT been informed?: No Medical Necessity Reason Pt with a Central, PICC or Fol: No Medical Necessity Reason History of Present Illness This is a 69-year-old male who is malnourished/ contracted to upper and lower extremities history of aneurysm, CHF, CVA, hyperlipidemia, hypertension, seizure and frequent UTI who was brought in by ambulance for malfunctioning of PEG tube as it was caught in something and the port/tip of the PEG tube was torn off. The patient is bed-bound, nonverbal, nonambulatory and a resident of a [facility] facility but recently resides with his nephew. The patient is a poor historian unable to answer any questions when asked during assessment. The patient is currently in no distress, eyes open and able to squeeze hand when asked to. The patient will be admitted under hospitalist care to the medical- surgical unit. Consult with GI specialist has been initiated as current PEG two we will need to be removed and new one we will need to be placed. Unable to obtain further information from the patient regarding symptoms due to being nonverbal. The plan has been discussed with the primary RN in which questions and concerns have been addressed. Pmhx: CHF, HTN, hyperipidemia, CVA, recurrent UTI, Seizure, Aneurysm, Past Surgical History: Fourteen [place], 3-5 mL peg tube Family History: Unknown Social: Lives with Family PN 08/16/2024 Patient is a 69-year-old gentleman with significant history of CHF CVA hyperlipidemia recurrent UTI and seizures feet with PEG tube was brought to the ED because of PEG tube malfunctioning. Patient is nonverbal and non-ambulatory at baseline. He was resident at a [facility] facility, but recently resides with his nephew. I was unable to get any information from the patient. Patient hears and responds with with a nod. Patient does not look to be in any form of distress. Currently pending GI consult for PEG tube replacement Subjective Review of Systems Unable to obtain good review of system from the patient however patient is not in any distress. Constitutional: Unable to obtained HEENT: Unable to obtained Cardiovascular: Unable to obtained Respiratory: Unable to obtained GI: Unable to obtained : Unable to obtained Endocrine: Unable to obtained Mark: Unable to obtained Musculoskeletal: Unable to obtained Psych: Unable to obtained Objective vital signs Vital Sign Date Time Temp Pulse Resp B/P (MAP) Pulse Ox O2 Delivery O2 Flow Rate FiO2 08/16/24 15:26 12 96 Room Air* 0 21 08/16/24 14:43 106/75 (85) 08/16/24 12:00 91 08/16/24 08:04 97.6 97.6 Total Intake and Output 08/15/24 08/15/24 08/16/24 15:00 23:00 07:00 Intake Total 240 ml 480 ml Balance 240 ml 480 ml medications Current Medications Medications Dose Ordered Sig/Ajith Route Start Time Stop Time Status Last Admin Dose Admin Sodium Chloride 1,000 ml @ 60 mls/hr [id number] IV 08/15/24 15:15 08/16/24 08:06 60 MLS/HR Examination General Appearance: Alert, Oriented X3, Cooperative, No acute distress, cachetic HEENT: Atraumatic, PERRLA, EOMI, Mucous membrane moist/pink Respiratory: Clear to auscultation, Normal air movement Cardiovascular: Regular rate, Normal S1, Normal S2, No murmurs, no chest wall tenderness Abdominal: no tenderness, bowel sounds present, no scars noted Extremities: contracted Skin: No rashes, No significant lesion Neuro: Nonambulatory Psych/Mental Status: unable to asses laboratory and microbiology Laboratory Tests 08/16/24 06:13 Test 08/16/24 06:13 Range/Units Serum Glucose 71 L 74-106 mg/dL Problem List/Assessment/Plan Problem List/Assessment/Plan Assessment/Plan PEG tube malfunction, PEG tube in place however the tip of the PEG tube where the ports are has been torn. --> tip turn off --> IV hydration --> Consult GI specialist for removal and placement of PEG tube --> Please notify patient nephew to obtain nutritional supplementation brand and schedule a feeding--start after GI specialist clearance once PEG tube fixed Hypokalemia --> replaced with IV potassium rider with lidocaine Bed-bound Normal verbal Hypercholesterolemia Chronic CHF Uncontrolled hypertension History of seizures HF, HTN, hyperipidemia, CVA, recurrent UTI Seizure Hitory aneurysm Fleet enema Assess for skin breakdown/turn q.2h hours Reconcile home med--hold meds for now, He was not avaiable so left message for him his name is Jonah DVT prophylaxis PUD prophylaxis Goal of care discussed with the nurse for more than 16 minute: Full code Discussed with DR. Rivera Plan discussed with: Other (Nurse) My Orders My Orders Orders - INDRA AGUIRRE Procedure Category Date Status Time Urinalysis LAB 08/16/24 Logged 08:20 Potassium Chloride PHA 08/16/24 In Process (Potassium Chloride). 12:00 Date of Service: August 16, 2024 Billing Provider: DEEP RIVERA MD Common Visit Codes: [id number] INP/OBS CARE(HIGH) INDRA AGUIRRE RESIDENT August 16, 2024 15:57 DEEP RIVERA MD August 20, 2024 07:05
[2024-08-16] MEDS: PANTOPRAZOLE 40 MG/10 ML VIAL INJ IV ONE (16:50)
--- NOTE | 2024-08-16 17:32 | DVHINCON2 ---
Date of service: August 16, 2024 Referring Physician Antelmo Reason for Consultation Dislodged G-tube History of Present Illness The patient is a 69-year-old male with history of hypertension, CHF, history of stroke, hyperlipidemia, history of seizure disorder, history frequent UTI, G- tube dependent, resides in a nursing home facility. Patient was admitted with a dislodged G-tube. GI consultation was obtained for evaluation. Patient is not able to get a good history. The history was obtained from the chart. Past Medical History As above Past Surgical History Noncontributory Family History: Cancer Family history: Hypertension Hypertension G8 SISTER, Onset:Unknown Social History Noncontributory Resides in a nursing home facility Allergies: Coded Allergies: Carbamazepine (Verified Allergy, Unknown, 02/25/20) Home Meds Active Scripts Atorvastatin Calcium (ATORVASTATIN CALCIUM) 20 Mg Tab, 20 MG PO HS MDD ., #60 TAB Prov:MASTER DAVALOS MD 02/28/20 Reported Medications Levetiracetam (Keppra) 500 Mg Tab, 500 MG PO BID, TAB 01/10/24 Amlodipine Besylate (Amlodipine Besylate) 5 Mg Tab, 5 MG PO DAILY, MG 01/10/24 Escitalopram Oxalate (Lexapro) 20 Mg Tab, 20 MG PO DAILY, TAB 01/10/24 Lidocaine (Ztlido) 1.8 % Pad, 1.8 % EX DAILY, PAD 01/10/24 Diclofenac Sodium (Topical) (Diclofenac Sodium) 1 % Gel, 1 % TD UD, GEL 01/10/24 Potassium Chloride (POTASSIUM CHLORIDE CR) 10 Meq Tb, 10 MEQ PO DAILY, TAB 01/10/24 Ergocalciferol (VITAMIN D 05264 UNIT) 50,000 [place], [address] UNIT PO QWEEKLY, CAP 01/10/24 Docusate Sodium (Colace) 100 Mg Cap, 1 CAP PO BID PRN for FOR CONSTIPATION, CAP 01/10/24 Gabapentin (Gabapentin) 100 Mg Cap, 100 MG PO BID, MG 01/10/24 Hydrocodone-Acetaminophen (Hydrocodone/Acetaminophen 10-325 mg) 1 Tab Tab, 1 TAB PO QID PRN for PAIN SCALE 7 THRU 10 for 30 Days, #120 TAB 01/10/24 Pantoprazole Sodium Sesquihydr (Pantoprazole Sodium) 40 Mg Tab, 40 MG PO BID, TAB 01/10/24 Current Medications Current Medications Medications (Trade) Dose Ordered Sig/Ajith Route PRN Reason Start Time Stop Time Status Last Admin Enoxaparin Sodium (Lovenox) 40 mg DAILY SC 08/17/24 10:00 Pantoprazole Sodium (Protonix) 40 mg DAILY IV 08/17/24 10:00 Review of Systems As per HPI History of CVA History of CHF History of hyperlipidemia History of seizure disorder History of frequent UTI History of G-tube dependency Nonverbal Vital Signs Vital Signs Date Time Temp Pulse Resp B/P (MAP) Pulse Ox O2 Delivery O2 Flow Rate FiO2 08/16/24 15:26 12 96 Room Air* 0 21 08/16/24 14:43 106/75 (85) 08/16/24 12:00 91 08/16/24 08:04 97.6 97.6 Physical Exam General: Cachectic-appearing male, disheveled HEENT: Bitemporal wasting, pupils equal round react to light vomiting, poor dentition, dry mucous membranes Heart: Regular rate and rhythm Abdomen: Soft nontender nondistended, G-tube was deflated balloon barely in the skin was removed by me Extremity: Contracted no clubbing cyanosis or edema Labs/Diagnostic Data Labs Test 08/16/24 06:13 08/15/24 11:00 Range/Units White Blood Count 8.5 # 4.4-10.8 10^3/uL Red Blood Count 4.17 L 4.5-5.90 10^6/uL Hemoglobin 13.8 13.5-17.5 g/dL Hematocrit 41.1 41.0-53.0 % Mean Corpuscular Volume 98.6 80.0-100.0 fL Mean Corpuscular Hemoglobin 33.1 H 28.0-32.0 pg Mean Corpuscular Hemoglobin Concent 33.6 32.0-36.0 g/dL Red Cell Distribution Width 15.1 H 11.8-14.3 % Platelet Count 232 140-450 10^3/uL Mean Platelet Volume 7.3 6.9-10.8 fL Neutrophils (%) (Auto) 74.9 37.0-80.0 % Lymphocytes (%) (Auto) 15.2 10.0-50.0 % Monocytes (%) (Auto) 8.3 0.0-12.0 % Eosinophils (%) (Auto) 1.2 0.0-7.0 % Basophils (%) (Auto) 0.4 0.0-2.0 % Neutrophils # (Auto) 6.4 1.6-8.6 10 ^3/uL Lymphocytes # (Auto) 1.3 0.4-5.4 10 ^3/uL Monocytes # (Auto) 0.7 0-1.3 10 ^3/uL Eosinophils # (Auto) 0.1 0-0.8 10 ^3/uL Basophils # (Auto) 0 0-0.2 10 ^3/uL Nucleated Red Blood Cells 0.1 % Sodium Level 134 L 136-145 mmol/L Potassium Level 3.4 L 3.5-5.1 mmol/L Chloride Level 101 98-107 mmol/L Carbon Dioxide Level 22 20-31 mmol/L Anion Gap 11 5-15 Blood Urea Nitrogen 8 L 9-23 mg/dL Creatinine 0.70 0.700-1.30 mg/dL Glomerular Filtration Rate Calc 101 >90 mL/min BUN/Creatinine Ratio 11.4 10.0-20.0 Serum Glucose 71 L 74-106 mg/dL Calcium Level 9.9 8.7-10.4 mg/dL Total Bilirubin 1.0 0.2-1.0 mg/dL Aspartate Amino Transferase (AST) 34 13-40 U/L Alanine Aminotransferase (ALT) 20 7-40 U/L Alkaline Phosphatase 128 H 46-116 U/L Total Protein 7.4 5.7-8.2 g/dL Albumin 3.7 3.2-4.8 g/dL Lactic Acid Level 0.9 0.4-2.0 mmol/L Troponin I High Sensitivity 5 </=54 ng/L B-Type Natriuretic Peptide 19.66 0-100 pg/mL Assessment 1. History of CVA 2. CHF, hyperlipidemia 3. History seizure disorder 4. G-tube dependent, admitted with dislodged G-tube Problems(with codes): (1) Hemiplegia following CVA (cerebrovascular accident) (2) PEG tube malfunction Plan/Recommendation 1. Would recommend NG tube placement 2. We will discuss G-tube placement with Dr. Brown 3. IV fluids 4. Continue current medications possible 5. Further recommendations pending G-tube placement Plan discussed with: Other URIEL CHEN MD August 16, 2024 17:32
[2024-08-16 18:26] LABS: Urine Bacteria None Seen /hpf (None Seen)
[2024-08-16 18:31] LABS: Urine Blood 2+ /uL (Negative); Urine Clarity Clear (Clear); Urine Color Yellow (Yellow); Urine Protein, UAD Negative (Negative); Urine Specific Gravity 1.009 (1.001-1.035); Urine Squamous Epithelial Cell FEW /hpf (<5); Urine Urobilinogen Normal (Negative); Urine WBC 1 /HPF (0-3); Urine pH 6.5 (5.0-9.0)
--- NOTE | 2024-08-16 19:22 | DVH ---
CHEST RADIOGRAPH Indication: NG TUBE PLACEMENT Technique: Single frontal view of the chest was obtained Comparison: XY CHEST PORTABLE on DOS: 01/11/24, CHEST PORTABLE on DOS: 02/25/20 FINDINGS: Lines and Tubes: Endotracheal tube in place 3.4 cm above the tiff. Enteric tube below the left diap hragm in the stomach. Lungs: No focal consolidation. Pleura: No effusion. No pneumothorax. Cardiomediastinal contours: Unremarkable Distended bowel gas under both diaphragms if pneumo peritoneum is of clinical concern recommend CT ab domen and pelvis. Bones: No acute osseous abnormality. IMPRESSION: 1. Endotracheal tube in place 3.4 cm above the tiff. 2. Enteric tube below the left thumb diaphragm in the stomach. 3. Air distended bowel below both diaphragms if pneumoperitoneum is of clinical concern recommend CT abdomen and pelvis.
[2024-08-16 20:00] VITALS: PULSE 110; RESP 14; O2SAT 95
[2024-08-16 22:06] VITALS: BP 127/91; PULSE 111; RESP 14; TEMP 97.9; O2SAT 96
[2024-08-16] MEDS ORDERED: TRAZ-227 PO (23:12)
[2024-08-17] VITALS (8 sets, daily range): BP systolic 101–123; BP diastolic 66–85; PULSE 103–125; RESP 13–20; TEMP 96.6–98.9; O2SAT 85–96
[2024-08-17] MEDS ORDERED: HYDROcodone-ACET 10/325MG TAB PO PRN (09:00)
[2024-08-17] MEDS ORDERED: LORazepam 2MG/ML-1ML VIAL IV PRN (09:30)
[2024-08-17] MEDS ORDERED: PPN PER PHARMACY 0 ML IV SCH (09:30)
[2024-08-17] MEDS: amLODIPine BESYLATE 5 MG TAB PO SCH (10:00)
[2024-08-17] MEDS ORDERED: levETIRAcetam 500 MG TAB PO SCH (10:00)
[2024-08-17] MEDS: PANTOPRAZOLE 40 MG/10 ML VIAL INJ IV SCH (10:00)
[2024-08-17] MEDS: GABAPENTIN 100 MG CAP PO SCH (10:00)
[2024-08-17 11:08] LABS: Anion Gap 15 (5-15); Sodium 144 mmol/L (136-145)
[2024-08-17 11:10] LABS: Calcium 10.3 mg/dL (8.7-10.4); Carbon Dioxide 19 mmol/L (20-31); Chloride 110 mmol/L (98-107); Potassium 3.2 mmol/L (3.5-5.1)
[2024-08-17 11:14] LABS: BUN/Creatinine Ratio 17.3 (10.0-20.0); Blood Urea Nitrogen 14 mg/dL (9-23); Glucose 91 mg/dL (74-106)
[2024-08-17] MEDS ORDERED: DEXTROSE (50%) 50ML SYRG IV SCH (11:15)
[2024-08-17 11:26] LABS: Magnesium 1.9 mg/dL (1.6-2.6)
[2024-08-17 11:27] LABS: Albumin 4.1 g/dL (3.2-4.8); Phosphorus 2.9 mg/dL (2.4-5.1)
[2024-08-17 11:29] LABS: Bilirubin, Total 1.4 mg/dL (0.2-1.0)
--- NOTE | 2024-08-17 11:57 | DVH ---
Indication: rule out pneumoperitoneum Technique: CT axial images of the abdomen and pelvis are obtained without contrast. Coronal and sagit melecio reformats were obtained. Radiation Dose Information: CTDI volume is 5.98 mGy. Dose-length product is 309.47 mGy*cm Comparison: CT CT AB PEL WO CON-NO ORAL OR IV on DOS: 01/09/24, CT ABD PELVIS WO CONTRAST on DOS: 02/13 06/04 FINDINGS: There is limited interpretation of the abdomen and pelvis without administration of intravenous contr ast. Lung bases demonstrate obstruction/plugging of the left lower lobe bronchi with extensive left lower lobe, left upper lobe lingular segment airspace consolidation. Left lung volume loss. Coronary artery calcification disease. Adrenal glands, spleen and pancreas unremarkable in shape. Liver is unremarkable in shape. No CT rustam dence for cholelithiasis. Nonobstructing right renal calculus measuring 2 mm. Left renal hemorrhagic / proteinaceous cyst surinder uring 8 mm. Left renal cysts. Marked distention of the stomach. Small bowel loops moderately distended. Colonic diverticula. Large volume stool within the rectum with rectal wall thickening and surroundin g stranding. Moderate volume stool in the remaining colon. Abdominal aortic atherosclerotic disease. IVC filter. Bladder partially decompressed by Kim cathet er. No inguinal lymphadenopathy. Bilateral ischial tuberosity decubitus ulcers, pzkbo-fitceva-iyeh-left. Probable sacral decubitus ulc er. Right femur intertrochanteric screw. Moderate lumbar degenerative disc disease and facet hypertro phic changes. Thoracolumbar dextrocurvature. IMPRESSION: 1. Large volume stool within the rectosigmoid colon. Rectal wall thickening with surrounding strandin g may represent stercoral colitis. 2. Moderate gaseous distention of the small bowel loops, possibly secondary to ileus with other consi derations include obstruction. 3. Complete consolidation within the left lower lobe and visualized segment of the left upper lobe li ngular segment with left bronchial obstruction/plugging. Recommend pulmonology consultation to evalu ate for mucous plugging, endobronchial lesion/mass/ neoplasm. 4. Coronary artery calcification disease. 5. IVC filter. 6. Bilateral ischial tuberosity ulcers. Probable sacral decubitus ulcer. Correlate with physical ex amination findings. 7. No identifiable pneumoperitoneum.
[2024-08-17] MEDS: InsuLIN REG 1unit/0.01ml Soln (100units/ml) SC SCH (12:00)
[2024-08-17] MEDS: ACCU-CHEK COMFORT CURVE STRIP VI SCH (12:00)
[2024-08-17] MEDS: levETIRAcetam 500 mg/100ml 100 ML IV ONE (13:05)
[2024-08-17] MEDS: ENOXAPARIN SOD 40 MG/0.4 ML SYRINGE SC SCH (13:05)
[2024-08-17] MEDS: POTASSIUM PHOSPHATE 26.4 MEQ in SODIUM CHL 0.9% 100 ML IV ONE (13:15)
--- NOTE | 2024-08-17 16:03 | DVHINCON2 ---
Date of service: August 17, 2024 Family History: Cancer Family history: Hypertension Hypertension G8 SISTER, Onset:Unknown Allergies: Coded Allergies: Carbamazepine (Verified Allergy, Unknown, 02/25/20) Home Meds Active Scripts Atorvastatin Calcium (ATORVASTATIN CALCIUM) 20 Mg Tab, 20 MG PO HS MDD ., #60 TAB Prov:MASTER DAVALOS MD 02/28/20 Reported Medications Trazodone Hcl (Trazodone Hcl) 50 Mg Tab, 50 MG PO, MG 08/16/24 Levetiracetam (Keppra) 500 Mg Tab, 500 MG PO BID, TAB 01/10/24 Amlodipine Besylate (Amlodipine Besylate) 5 Mg Tab, 5 MG PO DAILY, MG 01/10/24 Escitalopram Oxalate (Lexapro) 20 Mg Tab, 20 MG PO DAILY, TAB 01/10/24 Lidocaine (Ztlido) 1.8 % Pad, 1.8 % EX DAILY, PAD 01/10/24 Diclofenac Sodium (Topical) (Diclofenac Sodium) 1 % Gel, 1 % TD UD, GEL 01/10/24 Potassium Chloride (POTASSIUM CHLORIDE CR) 10 Meq Tb, 10 MEQ PO DAILY, TAB 01/10/24 Ergocalciferol (VITAMIN D 37923 UNIT) 50,000 [place], 89[address] UNIT PO QWEEKLY, CAP 01/10/24 Docusate Sodium (Colace) 100 Mg Cap, 1 CAP PO BID PRN for FOR CONSTIPATION, CAP 01/10/24 Gabapentin (Gabapentin) 100 Mg Cap, 100 MG PO BID, MG 01/10/24 Hydrocodone-Acetaminophen (Hydrocodone/Acetaminophen 10-325 mg) 1 Tab Tab, 1 TAB PO QID PRN for PAIN SCALE 7 THRU 10 for 30 Days, #120 TAB 01/10/24 Pantoprazole Sodium Sesquihydr (Pantoprazole Sodium) 40 Mg Tab, 40 MG PO BID, TAB 01/10/24 Current Medications Current Medications Medications (Trade) Dose Ordered Sig/Ajith Route PRN Reason Start Time Stop Time Status Last Admin Enoxaparin Sodium (Lovenox) 40 mg DAILY SC 08/17/24 10:00 08/17/24 13:05 Pantoprazole Sodium (Protonix) 40 mg DAILY IV 08/17/24 10:00 Amlodipine Besylate (Norvasc Tablet) 5 mg DAILY PO 08/17/24 10:00 Atorvastatin Calcium (Lipitor) 20 mg HS PO 08/17/24 22:00 Gabapentin (Neurontin Capsule) 100 mg BID PO 08/17/24 10:00 Acetaminophen/ Hydrocodone Bitart (Milo 10/325MG Tab) 1 tab QID PRN PO PAIN SCALE 7 THRU 10 08/17/24 09:00 Levetiracetam (Keppra Tablet) 500 mg BID PO 08/17/24 10:00 08/17/24 10:51 DC Trazodone HCl (Desyrel) 50 mg HS PO 08/17/24 22:00 Lorazepam (Ativan Inj) 1 mg Q5MINP PRN IV SEIZURES 08/17/24 09:30 Amino Acids 0 ml @ 0 mls/hr PER PHARMACY IV 08/17/24 09:30 Levetiracetam 100 ml @ 400 mls/hr BID IV 08/17/24 22:00 Diagnostic Test (Pha) (Accu-Chek Comfort Curve T) 1 strip Q6HR 08/17/24 12:00 08/17/24 12:00 Insulin Human Regular (InsuLIN R) FOLLOW SLIDING SCALE Q6HR SC 08/17/24 12:00 Dextrose 50 ml UD IV 08/17/24 11:15 Fat Emulsion Intravenous 100 ml/Potassium Acetate 60 meq/ Magnesium Sulfate 8 meq/ Multivitamins 10 ml/Chromium/ Copper/Manganese/ Zinc 1 ml/Amino Acids/Dextrose/ Purified Water 1,743 ml @ 72 mls/hr [id number] IV 08/17/24 22:00 08/18/24 21:59 Vital Signs Vital Signs Date Time Temp Pulse Resp B/P (MAP) Pulse Ox O2 Delivery O2 Flow Rate FiO2 08/17/24 09:00 97.9 103 16 101/67 (78) 85 97.9 08/16/24 22:06 Nasal Cannula* 4 36 Labs/Diagnostic Data Labs Test 08/17/24 12:52 08/17/24 10:07 08/16/24 18:07 08/16/24 06:13 Range/Units POC Glucose 94 70-106 mg/dl Sodium Level 144 # 136-145 mmol/L Potassium Level 3.2 L 3.5-5.1 mmol/L Chloride Level 110 H 98-107 mmol/L Carbon Dioxide Level 19 L 20-31 mmol/L Anion Gap 15 5-15 Blood Urea Nitrogen 14 9-23 mg/dL Creatinine 0.81 0.700-1.30 mg/dL Glomerular Filtration Rate Calc 97 >90 mL/min BUN/Creatinine Ratio 17.3 10.0-20.0 Serum Glucose 91 74-106 mg/dL Calcium Level 10.3 8.7-10.4 mg/dL Phosphorus Level 2.9 2.4-5.1 mg/dL Magnesium Level 1.9 1.6-2.6 mg/dL Total Bilirubin 1.4 H 0.2-1.0 mg/dL Albumin 4.1 3.2-4.8 g/dL Triglycerides Level 62 < 150 mg/dL Urine Color Yellow Yellow Urine Clarity Clear Clear Urine pH 6.5 5.0-9.0 Urine Specific [place] 1.009 1.001-1.035 Urine Protein Negative Negative Urine Ketones 1+ H Negative Urine Blood 2+ H Negative /uL Urine Nitrite Negative Negative Urine Bilirubin Negative Negative Urine Urobilinogen Normal Negative mg/dL Urine Leukocyte Esterase Negative Negative /uL Urine RBC 2 0 - 3 /hpf Urine Microscopic WBC 1 0-3 /HPF Urine Squamous Epithelial Cells Few <5 /hpf Urine Bacteria None seen None Seen /hpf Urine Glucose Normal Normal mg/dL White Blood Count 8.5 # 4.4-10.8 10^3/uL Red Blood Count 4.17 L 4.5-5.90 10^6/uL Hemoglobin 13.8 13.5-17.5 g/dL Hematocrit 41.1 41.0-53.0 % Mean Corpuscular Volume 98.6 80.0-100.0 fL Mean Corpuscular Hemoglobin 33.1 H 28.0-32.0 pg Mean Corpuscular Hemoglobin Concent 33.6 32.0-36.0 g/dL Red Cell Distribution Width 15.1 H 11.8-14.3 % Platelet Count 232 140-450 10^3/uL Mean Platelet Volume 7.3 6.9-10.8 fL Neutrophils (%) (Auto) 74.9 37.0-80.0 % Lymphocytes (%) (Auto) 15.2 10.0-50.0 % Monocytes (%) (Auto) 8.3 0.0-12.0 % Eosinophils (%) (Auto) 1.2 0.0-7.0 % Basophils (%) (Auto) 0.4 0.0-2.0 % Neutrophils # (Auto) 6.4 1.6-8.6 10 ^3/uL Lymphocytes # (Auto) 1.3 0.4-5.4 10 ^3/uL Monocytes # (Auto) 0.7 0-1.3 10 ^3/uL Eosinophils # (Auto) 0.1 0-0.8 10 ^3/uL Basophils # (Auto) 0 0-0.2 10 ^3/uL Nucleated Red Blood Cells 0.1 % Aspartate Amino Transferase (AST) 34 13-40 U/L Alanine Aminotransferase (ALT) 20 7-40 U/L Alkaline Phosphatase 128 H 46-116 U/L Total Protein 7.4 5.7-8.2 g/dL Test 08/15/24 11:00 Range/Units Lactic Acid Level 0.9 0.4-2.0 mmol/L Troponin I High Sensitivity 5 </=54 ng/L B-Type Natriuretic Peptide 19.66 0-100 pg/mL Microbiology Date/Time Source Procedure Growth Status 08/17/24 02:30 Nose MRSA Screen - Final Complete Assessment [id number] DISPLACED G TUBE OPENING IDENTIFIED AND ANGIOCATH 18 GAUGE PLACED WITH NO COMPLICATIONS ATTEMPT G TUBE PLACEMENT 24 TO 48 HRS NURSE AT BEDSIDE Plan discussed with: Other REBECCA WILKERSON MD August 17, 2024 16:03
--- NOTE | 2024-08-17 18:11 | DVHPNRES ---
Progress Note Date Seen: August 17, 2024 Resident Creating Document: INDRA AGUIRRE RESIDENT Has the PT tested + for MRSA If YES, has PT been informed?: No Medical Necessity Reason Pt with a Central, PICC or Fol: No Medical Necessity Reason History of Present Illness This is a 69-year-old male who is malnourished/ contracted to upper and lower extremities history of aneurysm, CHF, CVA, hyperlipidemia, hypertension, seizure and frequent UTI who was brought in by ambulance for malfunctioning of PEG tube as it was caught in something and the port/tip of the PEG tube was torn off. The patient is bed-bound, nonverbal, nonambulatory and a resident of a [place] [facility] facility but recently resides with his nephew. The patient is a poor historian unable to answer any questions when asked during assessment. The patient is currently in no distress, eyes open and able to squeeze hand when asked to. The patient will be admitted under hospitalist care to the medical- surgical unit. Consult with GI specialist has been initiated as current PEG two we will need to be removed and new one we will need to be placed. Unable to obtain further information from the patient regarding symptoms due to being nonverbal. The plan has been discussed with the primary RN in which questions and concerns have been addressed. Pmhx: CHF, HTN, hyperipidemia, CVA, recurrent UTI, Seizure, Aneurysm, Past Surgical History: Fourteen [place], 3-5 mL peg tube Family History: Unknown Social: Lives with Family PN 08/16/2024 Patient is a 69-year-old gentleman with significant history of CHF CVA hyperlipidemia recurrent UTI and seizures feet with PEG tube was brought to the ED because of PEG tube malfunctioning. Patient is nonverbal and non-ambulatory at baseline. He was resident at a [place] [facility] [place], but recently resides with his nephew. I was unable to get any information from the patient. Patient hears and responds with with a nod. Patient does not look to be in any form of distress. Currently pending GI consult for PEG tube replacement PN 08/17/2023: Patient is seen by surgery today. Malfunctioned G-tube was removed. Plan is to have a G-tube replacement in 24-48 hours per surgery. Patient is nonverbal at baseline was able to speak to the brother today and he said the last time the patient had any of his medication was before coming to the emergency room. We giving the patient some of the medications that can be given IV currently pain pending surgery for PEG tube replacement. Patient is notable to have a tachycardia no no history of AFib noted currently patient is on telemetry. Subjective Review of Systems UNABLE TO OBTAIN DUE TO THE PATIENT'S PRESENT CONDITION. Objective vital signs Vital Sign Date Time Temp Pulse Resp B/P (MAP) Pulse Ox O2 Delivery O2 Flow Rate FiO2 08/17/24 17:00 97.7 117 16 116/79 (91) 90 97.7 08/16/24 22:06 Nasal Cannula* 4 36 Total Intake and Output 08/16/24 08/16/24 08/17/24 15:00 23:00 07:00 Intake Total 180 ml 120 ml 1000 ml Output Total 900 ml 300 ml Balance 180 ml -780 ml 700 ml medications Current Medications Medications Dose Ordered Sig/Ajith Route Start Time Stop Time Status Last Admin Dose Admin Sodium Chloride 1,000 ml @ 60 mls/hr [id number] IV 08/15/24 15:15 08/17/24 17:15 60 MLS/HR Enoxaparin Sodium 40 mg DAILY SC 08/17/24 10:00 08/17/24 13:05 40 MG Pantoprazole Sodium 40 mg DAILY IV 08/17/24 10:00 Amlodipine Besylate 5 mg DAILY PO 08/17/24 10:00 Atorvastatin Calcium 20 mg HS PO 08/17/24 22:00 Gabapentin 100 mg BID PO 08/17/24 10:00 Acetaminophen/ Hydrocodone Bitart 1 tab QID PRN PO 08/17/24 09:00 Trazodone HCl 50 mg HS PO 08/17/24 22:00 Lorazepam 1 mg Q5MINP PRN IV 08/17/24 09:30 Amino Acids 0 ml @ 0 mls/hr PER PHARMACY IV 08/17/24 09:30 Levetiracetam 100 ml @ 400 mls/hr BID IV 08/17/24 22:00 Diagnostic Test (Pha) 1 strip Q6HR 08/17/24 12:00 08/17/24 12:00 1 STRIP Insulin Human Regular FOLLOW SLIDING SCALE Q6HR SC 08/17/24 12:00 Dextrose 50 ml UD IV 08/17/24 11:15 Fat Emulsion Intravenous 100 ml/Potassium Acetate 60 meq/ Magnesium Sulfate 8 meq/ Multivitamins 10 ml/Chromium/ Copper/Manganese/ Zinc 1 ml/Amino Acids/Dextrose/ Purified Water 1,743 ml @ 72 mls/hr [id number] IV 08/17/24 22:00 08/18/24 21:59 Examination General Appearance: Sleeping but arousable, Cooperative, No acute distress, c achetic HEENT: Atraumatic, PERRLA, EOMI, Mucous membrane moist/pink Respiratory: Clear to auscultation, Normal air movement Cardiovascular: Regular rate, Normal S1, Normal S2, No murmurs, no chest wall tenderness Abdominal: no tenderness, bowel sounds present, no scars noted Extremities: contracted Skin: No rashes, No significant lesion Neuro: Nonambulatory Psych/Mental Status: unable to asses laboratory and microbiology Laboratory Tests 08/17/24 10:07 08/16/24 06:13 Test 08/17/24 10:07 Range/Units Serum Glucose 91 74-106 mg/dL Microbiology Date/Time Source Procedure Growth Status 08/17/24 02:30 Nose MRSA Screen - Final Complete Problem List/Assessment/Plan Problem List/Assessment/Plan Assessment/Plan Failure to thrive Severe protein calorie malnutrition PEG tube malfunction, PEG tube in place however the tip of the PEG tube where the ports are has been torn. --> tip turn off --> IV hydration --> Consult GI specialist for removal and placement of PEG tube --> Please notify patient nephew to obtain nutritional supplementation brand and schedule a feeding--start after GI specialist clearance once PEG tube fixed Hypokalemia --> replaced with IV potassium rider with lidocaine Multiple Sacral decubitus ulcer stage 3/4 -->Wound consult --> full thickness wounds with no measurable depth noted on patient's sacrum (8x8cm) and R Lower Buttock (6x3cm) over pink collagen scar tissue. Acute on chronic respiratory failure --->on 5L of oxygen Bed-bound Normal verbal Hypercholesterolemia Chronic Systolic vs diastolic CHF Uncontrolled hypertension History of seizures HF, HTN, hyperipidemia, CVA, History of recurrent UTI Seizure History aneurysm Fleet enema Assess for skin breakdown/turn q.2h hours Reconcile home med--hold meds for now, He was not available so left message for him his name is Jonah DVT prophylaxis PUD prophylaxis Goal of care discussed with the nurse for more than 16 minute: Full code Discussed with DR. Nicole Phillips discussed with: Other (Nurse and brother ( on the phone)) My Orders My Orders Orders - INDRA AGUIRRE Procedure Category Date Status Time Amlodipine Tablet PHA 08/17/24 In Process (Norvasc Tablet) 10:00 Atorvastatin (Lipitor) PHA 08/17/24 In Process 22:00 Gabapentin Capsule PHA 08/17/24 In Process (Neurontin Capsule) 10:00 Hydrocodone-Acet PHA 08/17/24 In Process 10/325mg Tab ([place] 09:00 Trazodone Hcl PHA 08/17/24 In Process (Desyrel) 22:00 Lorazepam 2mg/Ml Inj PHA 08/17/24 In Process (Ativan Inj) 09:30 Ppn Per Pharmacy PHA 08/17/24 In Process 09:30 Ct Ab Pel Wo Con-No CT 08/17/24 Resulted Oral Or Iv 09:19 Fleet Enema If In ORDERS 08/17/24 Transmitted Early Labor 09:21 Levetiracetam 500 PHA 08/17/24 In Process Mg/100ml (Levetiraceta 22:00 Glucose Blood PHA 08/17/24 In Process (Accu-Chek Comfort 12:00 Insulin R (Human) PHA 08/17/24 In Process (Insulin R) 12:00 Dextrose 50% Syringe PHA 08/17/24 In Process 11:15 Amino Acid PHA 08/17/24 In Process Infusion... W/Fat 22:00 Potassium Phosphate PHA 08/17/24 In Process 13:15 Comprehensive LAB 08/18/24 Verified Metabolic Panel 04:00 Magnesium LAB 08/18/24 Verified 04:00 Phosphorus LAB 08/18/24 Verified 04:00 Ppn Per Pharmacy WAQAR 08/17/24 In Process 22:00 Transfer Orders XFER 08/17/24 Transmitted 15:19 Notify Provider NOTICE 08/17/24 Transmitted Malnutrition 15:59 Nutritional NOURISH 08/17/24 Transmitted Supplements 15:59 Increase Calorie NOURISH 08/17/24 Transmitted Intake 15:59 * Bankruptcy Legal Assistant CONS 08/17/24 Transmitted Consult 17:25 Dietary Evaluation Review Recommendations by RD: Increase Calorie Intake, PPN/TPN Comments: 1) TPN to meet at least 75% estimated needs 2) If GI is accessible, TF Jevity 1.2Cal @ 60ml/hr. Start @ 20ml/hr, increase 10ml/hr Q4H until goal is reached. Water flush 150ml Q6H TF @ goal volume provides 1728 kcal (101%) 80gm protein (108%) 1162ml free water 3) River 1 pk BID, Vit C 500mg BID, Zince sulfate 220mg daily x 10 days, MVI w/ minerals 1 tab daily 4) Continue current POC Expected Outcomes/Goals: Pt meets 75% estimated needs within 7 days FU 2-3 days Interpretation of weight loss: >20% in 1 year Body Fat Depletion (Severe): Mod to Severe Depletion Muscle Mass (Severe): Mod to Severe Depletion Protein Calorie Malnutrition: Severe Is there a minimum of two crit: Yes Date of Service: August 17, 2024 Billing Provider: MARILEE ARROYO MD Common Visit Codes: [id number] INP/OBS CARE(HIGH) INDRA AGUIRRE RESIDENT August 17, 2024 18:11 MARILEE ARROYO MD August 30, 2024 02:17
--- NOTE | 2024-08-17 18:31 | DVHINCON2 ---
DATE OF CONSULTATION: 08/17/2024 HISTORY OF PRESENT ILLNESS: This patient is 69 years old, unable to give history. Most of the information appeared from the chart. He has a history of hypertension, CHF, history of stroke, seizure disorder, had a G-tube in place and that is the way he was getting nutrition, and it got pulled out or got displaced and I was asked to see him in regards to placement of a G-tube. PAST MEDICAL HISTORY: Per records. PAST SURGICAL HISTORY: G-tube placement and the previous history. PHYSICAL EXAMINATION: VITAL SIGNS: Currently afebrile. Stable signs. HEENT: No evidence of pallor, cyanosis, or jaundice. NECK: Supple. Nontender. No thyromegaly. No lymphadenopathy. CHEST AND LUNGS: Clear. HEART: Within normal limits. ABDOMEN: Soft. He has an exit point from a previous G-tube placement. Abdomen itself is non-acute. NEUROLOGIC: Not assessed. CLINICAL IMPRESSION: Displaced G-tube. PLAN: The plan would be to consider placement of G-tube at the bedside. At this point, the opening is very narrow. Angiocatheter was introduced after the needle was withdrawn and the area was then dressed with gauze and tape applied and abdominal binder applied and then attempt would be made to use this opening to place the G-tube in between 24-48 hours. There were no complications noted. This was done at the bedside with the nurse at the bedside as well. MD IRINEO Reyes/DIAZ/GERARDO TID: [id number] RECEIPT: [id number] cc:
[2024-08-17] MEDS: MORPHINE SULFATE INJ 2 MG/ml SYRG IV ONE (19:07)
--- NOTE | 2024-08-17 21:55 | DVHPN2 ---
Progress Note - Dictate Date Seen: August 17, 2024 Has the PT tested + for MRSA If YES, has PT been informed?: No Medical Necessity Reason Pt with a Central, PICC or Fol: No Subjective This patient is 69 years old with a history of hypertension, CHF, history of stroke, seizure disorder, had a G-tube in place and that is the way he was getting nutrition, and it got pulled out or got displaced and I was asked to see him in regards to placement of a G-tube. vital signs Vital Sign Date Time Temp Pulse Resp B/P (MAP) Pulse Ox O2 Delivery O2 Flow Rate FiO2 08/17/24 20:41 96.6 119 20 113/77 (89) 90 96.6 08/17/24 08:00 Nasal Cannula* 5 40 Total Intake and Output 08/16/24 08/16/24 08/17/24 15:00 23:00 07:00 Intake Total 180 ml 120 ml 1000 ml Output Total 900 ml 300 ml Balance 180 ml -780 ml 700 ml medications Current Medications Medications Dose Ordered Sig/Ajith Route Start Time Stop Time Status Last Admin Dose Admin Sodium Chloride 1,000 ml @ 60 mls/hr [id number] IV 08/15/24 15:15 08/17/24 17:15 60 MLS/HR Enoxaparin Sodium 40 mg DAILY SC 08/17/24 10:00 08/17/24 13:05 40 MG Atorvastatin Calcium 20 mg HS PO 08/17/24 22:00 Acetaminophen/ Hydrocodone Bitart 1 tab QID PRN PO 08/17/24 09:00 Cancel Lorazepam 1 mg Q5MINP PRN IV 08/17/24 09:30 Amino Acids 0 ml @ 0 mls/hr PER PHARMACY IV 08/17/24 09:30 Levetiracetam 100 ml @ 400 mls/hr BID IV 08/17/24 22:00 Diagnostic Test (Pha) 1 strip Q6HR 08/17/24 12:00 08/17/24 18:00 1 STRIP Insulin Human Regular FOLLOW SLIDING SCALE Q6HR SC 08/17/24 12:00 Dextrose 50 ml UD IV 08/17/24 11:15 Fat Emulsion Intravenous 100 ml/Potassium Acetate 60 meq/ Magnesium Sulfate 8 meq/ Multivitamins 10 ml/Chromium/ Copper/Manganese/ Zinc 1 ml/Amino Acids/Dextrose/ Purified Water 1,743 ml @ 72 mls/hr [id number] IV 08/17/24 22:00 08/18/24 21:59 objective VITAL SIGNS: Currently afebrile. Stable signs. HEENT: No evidence of pallor, cyanosis, or jaundice. NECK: Supple. Nontender. No thyromegaly. No lymphadenopathy. CHEST AND LUNGS: Clear. HEART: Within normal limits. ABDOMEN: Soft. He has an exit point from a previous G-tube placement. Abdomen itself is non-acute.no GT noted NEUROLOGIC: Not assessed. laboratory and microbiology Laboratory Tests 08/17/24 10:07 08/16/24 06:13 Test 08/17/24 10:07 Range/Units Serum Glucose 91 74-106 mg/dL Problems(with codes): (1) Malfunction of gastrostomy tube (2) Hemiplegia following CVA (cerebrovascular accident) (3) Moderate protein malnutrition (4) Seizures (5) Heart failure (6) EMIGDIO (acute kidney injury) (7) Generalized weakness Prognosis Plan I requested a surgical consult with Dr. Nano Brown At bedside Dr. Nano Brown was able to replace and angio catheter through the same gastrostomy opening There is a plan to replace with a new PEG tube in 24-48 hours Continue NG tube feedings for now Prognosis remains guarded Dietary Evaluation Review Recommendations by RD: Increase Calorie Intake, PPN/TPN Comments: 1) TPN to meet at least 75% estimated needs 2) If GI is accessible, TF Jevity 1.2Cal @ 60ml/hr. Start @ 20ml/hr, increase 10ml/hr Q4H until goal is reached. Water flush 150ml Q6H TF @ goal volume provides 1728 kcal (101%) 80gm protein (108%) 1162ml free water 3) River 1 pk BID, Vit C 500mg BID, Zince sulfate 220mg daily x 10 days, MVI w/ minerals 1 tab daily 4) Continue current POC Expected Outcomes/Goals: Pt meets 75% estimated needs within 7 days FU 2-3 days Interpretation of weight loss: >20% in 1 year Body Fat Depletion (Severe): Mod to Severe Depletion Muscle Mass (Severe): Mod to Severe Depletion Protein Calorie Malnutrition: Severe Is there a minimum of two crit: Yes Plan discussed with: Other (Dr Nano Brown) KADE BROWN MD August 17, 2024:55
[2024-08-17] MEDS: ATORVASTATIN 20 MG TAB PO SCH (22:00)
[2024-08-17] MEDS ORDERED: traZODone HCL 50 MG TAB PO SCH (22:00)
[2024-08-17] MEDS: levETIRAcetam 500 mg/100ml 100 ML IV SCH (23:20)
[2024-08-18] VITALS (7 sets, daily range): BP systolic 115–122; BP diastolic 74–85; PULSE 91–112; RESP 17–20; TEMP 97.8–98.8; O2SAT 91–99
[2024-08-18] MEDS: PPN PER PHARMACY IV NR ×2 (00:02→22:19)
[2024-08-18 07:28] LABS: Alanine Aminotransferase 22 U/L (7-40); Albumin 4.2 g/dL (3.2-4.8); Anion Gap 14 (5-15); Aspartate Aminotransferase 26 U/L (13-40); Blood Urea Nitrogen 22 mg/dL (9-23); Carbon Dioxide 21 mmol/L (20-31)
[2024-08-18 07:31] LABS: Basophils # (auto) 0 10 ^3/uL (0-0.2); Basophils % (auto) 0.1 % (0.0-2.0); Eosinophils # (auto) 0 10 ^3/uL (0-0.8); Hematocrit 43.8 % (41.0-53.0); Lymphocytes # (auto) 0.6 10 ^3/uL (0.4-5.4); Lymphocytes % (auto) 8.6 % (10.0-50.0); Mean Corpuscular Hemoglobin 33.7 pg (28.0-32.0); Mean Corpuscular Hgb Conc. 34.3 g/dL (32.0-36.0); Mean Corpuscular Volume 98.2 fL (80.0-100.0); Monocytes # (auto) 0.3 10 ^3/uL (0-1.3); Monocytes % (auto) 5.2 % (0.0-12.0); Neutrophils # (auto) 5.8 10 ^3/uL (1.6-8.6); Neutrophils % (auto) 86.1 % (37.0-80.0); Nucleated Red Blood Cells % 0.1 %; Platelet Count (auto) 239 10^3/uL (140-450); Red Blood Cells 4.46 10^6/uL (4.5-5.90); White Blood Cell 6.7 10^3/uL (4.4-10.8)
[2024-08-18 07:32] LABS: Alkaline Phosphatase 119 U/L (46-116); Bilirubin, Total 1.7 mg/dL (0.2-1.0); Calcium 10.6 mg/dL (8.7-10.4); Chloride 111 mmol/L (98-107); Glucose 151 mg/dL (74-106); Phosphorus 1.7 mg/dL (2.4-5.1); Potassium 3.1 mmol/L (3.5-5.1); Sodium 146 mmol/L (136-145)
[2024-08-18] MEDS: POTASSIUM PHOSPHATE 44 MEQ in D5W 5% 250 ML IV ONE (12:00)
[2024-08-18] MEDS: traZODone HCL 50 MG TAB NG ONE (16:15)
--- NOTE | 2024-08-18 17:33 | DVHPNRES ---
Progress Note Date Seen: August 18, 2024 Resident Creating Document: INDRA AGUIRER RESIDENT Has the PT tested + for MRSA If YES, has PT been informed?: No Medical Necessity Reason Pt with a Central, PICC or Fol: No Medical Necessity Reason History of Present Illness This is a 69-year-old male who is malnourished/ contracted to upper and lower extremities history of aneurysm, CHF, CVA, hyperlipidemia, hypertension, seizure and frequent UTI who was brought in by ambulance for malfunctioning of PEG tube as it was caught in something and the port/tip of the PEG tube was torn off. The patient is bed-bound, nonverbal, nonambulatory and a resident of a fdc facility but recently resides with his nephew. The patient is a poor historian unable to answer any questions when asked during assessment. The patient is currently in no distress, eyes open and able to squeeze hand when asked to. The patient will be admitted under hospitalist care to the medical- surgical unit. Consult with GI specialist has been initiated as current PEG two we will need to be removed and new one we will need to be placed. Unable to obtain further information from the patient regarding symptoms due to being nonverbal. The plan has been discussed with the primary RN in which questions and concerns have been addressed. Pmhx: CHF, HTN, hyperipidemia, CVA, recurrent UTI, Seizure, Aneurysm, Past Surgical History: Fourteen [place], 3-5 mL peg tube Family History: Unknown Social: Lives with Family PN 08/16/2024 Patient is a 69-year-old gentleman with significant history of CHF CVA hyperlipidemia recurrent UTI and seizures feet with PEG tube was brought to the ED because of PEG tube malfunctioning. Patient is nonverbal and non-ambulatory at baseline. He was resident at a fdc facility, but recently resides with his nephew. I was unable to get any information from the patient. Patient hears and responds with with a nod. Patient does not look to be in any form of distress. Currently pending GI consult for PEG tube replacement PN 08/18/2023: Patient is seen by surgery today. Malfunctioned G-tube was removed. Plan is to have a G-tube replacement in 24-48 hours per surgery. Patient is nonverbal at baseline was able to speak to the brother today and he said the last time the patient had any of his medication was before coming to the emergency room. We giving the patient some of the medications that can be given IV currently pain pending surgery for PEG tube replacement. Patient is notable to have a tachycardia no history of AFib noted currently patient is on telemetry. PN: 08/18/2024 Patient is seen and examined at the bedside today. Initially he was a little sleepy in the morning and not responding much. I checked his blood glucose and it was 140. He is also on 5 L of oxygen saturating around 96%. The afternoon, he was much more awake. When asked if he has any pain he pointed to his heard. He has chest tube and all feeding and medication will go through the NGT until the peg tube is replaced. Patient is likely to go for PEG replacement tomorrow and once that is done, He will be safe to go home. I made a call to the brother today to ask about the goal of care in terms of resuscitation goals. He did not answer. Thus, I left a message for him to give us a call back. Subjective Review of Systems Unable to obtain review of system given his current condition. Constitutional: frail HEENT: headache, Cardiovascular: unable to obtain Respiratory: unable to obtain GI: unable to obtain : unable to obtain Endocrine: unable to obtain Mark: unable to obtain Musculoskeletal: contracte Psych: unable to obtain Objective vital signs Vital Sign Date Time Temp Pulse Resp B/P (MAP) Pulse Ox O2 Delivery O2 Flow Rate FiO2 08/18/24 13:00 97.8 99 20 120/77 (91) 96 97.8 08/18/24 08:00 Nasal Cannula* 5 40 Total Intake and Output 08/17/24 08/17/24 08/18/24 15:00 23:00 07:00 Intake Total 0 ml 1050 ml Output Total 300 ml 200 ml Balance -300 ml 850 ml medications Current Medications Medications Dose Ordered Sig/Ajith Route Start Time Stop Time Status Last Admin Dose Admin Sodium Chloride 1,000 ml @ 60 mls/hr [id number] IV 08/15/24 15:15 08/17/24 23:19 60 MLS/HR Enoxaparin Sodium 40 mg DAILY SC 08/17/24 10:00 08/18/24 10:06 40 MG Atorvastatin Calcium 20 mg HS PO 08/17/24 22:00 Acetaminophen/ Hydrocodone Bitart 1 tab QID PRN PO 08/17/24 09:00 Cancel Lorazepam 1 mg Q5MINP PRN IV 08/17/24 09:30 Amino Acids 0 ml @ 0 mls/hr PER PHARMACY IV 08/17/24 09:30 Levetiracetam 100 ml @ 400 mls/hr BID IV 08/17/24 22:00 08/18/24 10:06 400 MLS/HR Diagnostic Test (Pha) 1 strip Q6HR 08/17/24 12:00 08/18/24 12:16 1 STRIP Insulin Human Regular FOLLOW SLIDING SCALE Q6HR SC 08/17/24 12:00 08/18/24 06:29 2 UNITS Dextrose 50 ml UD IV 08/17/24 11:15 Fat Emulsion Intravenous 100 ml/Potassium Acetate 60 meq/ Magnesium Sulfate 8 meq/ Multivitamins 10 ml/Chromium/ Copper/Manganese/ Zinc 1 ml/Amino Acids/Dextrose/ Purified Water 1,743 ml @ 72 mls/hr [id number] IV 08/17/24 22:00 08/18/24 21:59 08/18/24 00:02 72 MLS/HR Fat Emulsion Intravenous 200 ml/Potassium Acetate 60 meq/ Potassium Phosphate 22 meq/ Magnesium Sulfate 6 meq/ Multivitamins 10 ml/Amino Acids/ Dextrose/Purified Water 2,146.5 ml @ 89 mls/hr [id number] IV 08/18/24 22:00 08/19/24 21:59 Acetaminophen/ Hydrocodone Bitart 1 tab Q6HPRN PRN NG 08/18/24 16:15 Gabapentin 100 mg BID NG 08/18/24 22:00 Atorvastatin Calcium 20 mg HS NG 08/18/24 22:00 Examination General Appearance: Sleeping but arousable, Cooperative, No acute distress, c achetic HEENT: Atraumatic, Respiratory: on 5L of oxygen spo2 96% Cardiovascular: Regular rate, Normal S1, Normal S2, No murmurs, no chest wall tenderness Abdominal: no tenderness, bowel sounds present, no scars noted Extremities: contracted Skin: No rashes, No significant lesion Neuro: Nonambulatory Psych/Mental Status: unable to asses laboratory and microbiology Laboratory Tests 08/18/24 06:16 Test 08/18/24 06:16 Range/Units Serum Glucose 151 H 74-106 mg/dL Microbiology Date/Time Source Procedure Growth Status 08/17/24 02:30 Nose MRSA Screen - Final Complete Problem List/Assessment/Plan Problem List/Assessment/Plan Assessment/Plan Failure to thrive Severe protein calorie malnutrition PEG tube malfunction, PEG tube in place however the tip of the PEG tube where the ports are has been torn. --> tip turn off --> IV hydration -->placement of PEG tube tomorrow --> Please notify patient nephew to obtain nutritional supplementation brand and schedule a feeding--start after GI specialist clearance once PEG tube fixed Hypokalemia --> replaced with IV potassium rider with lidocaine Multiple Sacral decubitus ulcer stage 3/4 -->Wound consult --> full thickness wounds with no measurable depth noted on patient's sacrum (8x8cm) and R Lower Buttock (6x3cm) over pink collagen scar tissue. Acute on chronic respiratory failure --->on 5L of oxygen spo2 96 % Bed-bound Normal verbal Hypercholesterolemia Chronic Systolic vs diastolic CHF Uncontrolled hypertension History of seizures HF, HTN, hyperipidemia, CVA, History of recurrent UTI Seizure History aneurysm Fleet enema Assess for skin breakdown/turn q.2h hours Reconcile home med-- given via NG TUBE. Called his brother Jonah to update him DVT prophylaxis PUD prophylaxis Goal of care discussed with the nurse for more than 16 minute: Full code Discussed with DR. Fuentes Plan discussed with: Other (Nurse) My Orders My Orders Orders - INDRA AGUIRRE RESIDENT Procedure Category Date Status Time * Room Service Waiter/Waitress CONS 08/18/24 Transmitted Consult 08:54 Amino Acid PHA 08/18/24 In Process Infusion... W/Fat 22:00 Comprehensive LAB 08/19/24 Verified Metabolic Panel 04:00 Magnesium LAB 08/19/24 Verified 04:00 Phosphorus LAB 08/19/24 Verified 04:00 Potassium Phosphate PHA 08/18/24 In Process 10:45 Ppn Per Pharmacy WAQAR 08/18/24 In Process 22:00 Hydrocodone-Acet PHA 08/18/24 In Process 5/325mg Tab (Cash 16:15 Gabapentin Capsule PHA 08/18/24 In Process (Neurontin Capsule) 22:00 Atorvastatin (Lipitor) PHA 08/18/24 In Process 22:00 Dietary Evaluation Review Recommendations by RD: Increase Calorie Intake, PPN/TPN Comments: 1) TPN to meet at least 75% estimated needs 2) If GI is accessible, TF Jevity 1.2Cal @ 60ml/hr. Start @ 20ml/hr, increase 10ml/hr Q4H until goal is reached. Water flush 150ml Q6H TF @ goal volume provides 1728 kcal (101%) 80gm protein (108%) 1162ml free water 3) River 1 pk BID, Vit C 500mg BID, Zince sulfate 220mg daily x 10 days, MVI w/ minerals 1 tab daily 4) Continue current POC Expected Outcomes/Goals: Pt meets 75% estimated needs within 7 days FU 2-3 days Interpretation of weight loss: >20% in 1 year Body Fat Depletion (Severe): Mod to Severe Depletion Muscle Mass (Severe): Mod to Severe Depletion Protein Calorie Malnutrition: Severe Is there a minimum of two crit: Yes Date of Service: August 18, 2024 Billing Provider: MARILEE ARROYO MD Common Visit Codes: [id number] INP/OBS CARE(HIGH) INDRA AGUIRRE RESIDENT August 18, 2024 17:33 MARILEE ARROYO MD August 30, 2024 02:28
--- NOTE | 2024-08-18 21:07 | DVHPN2 ---
Progress Note Date Seen: August 18, 2024 Has the PT tested + for MRSA If YES, has PT been informed?: No Medical Necessity Reason Pt with a Central, PICC or Fol: No Objective vital signs Vital Sign Date Time Temp Pulse Resp B/P (MAP) Pulse Ox O2 Delivery O2 Flow Rate FiO2 08/18/24 17:00 97.9 100 18 120/76 (91) 99 97.9 08/18/24 08:00 Nasal Cannula* 5 40 Total Intake and Output 08/17/24 08/17/24 08/18/24 15:00 23:00 07:00 Intake Total 0 ml 1050 ml Output Total 300 ml 200 ml Balance -300 ml 850 ml medications Current Medications Medications Dose Ordered Sig/Ajith Route Start Time Stop Time Status Last Admin Dose Admin Sodium Chloride 1,000 ml @ 60 mls/hr [id number] IV 08/15/24 15:15 08/17/24 23:19 60 MLS/HR Enoxaparin Sodium 40 mg DAILY SC 08/17/24 10:00 08/18/24 10:06 40 MG Atorvastatin Calcium 20 mg HS PO 08/17/24 22:00 Acetaminophen/ Hydrocodone Bitart 1 tab QID PRN PO 08/17/24 09:00 Cancel Lorazepam 1 mg Q5MINP PRN IV 08/17/24 09:30 Amino Acids 0 ml @ 0 mls/hr PER PHARMACY IV 08/17/24 09:30 Levetiracetam 100 ml @ 400 mls/hr BID IV 08/17/24 22:00 08/18/24 10:06 400 MLS/HR Diagnostic Test (Pha) 1 strip Q6HR 08/17/24 12:00 08/18/24 18:00 1 STRIP Insulin Human Regular FOLLOW SLIDING SCALE Q6HR SC 08/17/24 12:00 08/18/24 06:29 2 UNITS Dextrose 50 ml UD IV 08/17/24 11:15 Fat Emulsion Intravenous 100 ml/Potassium Acetate 60 meq/ Magnesium Sulfate 8 meq/ Multivitamins 10 ml/Chromium/ Copper/Manganese/ Zinc 1 ml/Amino Acids/Dextrose/ Purified Water 1,743 ml @ 72 mls/hr [id number] IV 08/17/24 22:00 08/18/24 21:59 08/18/24 00:02 72 MLS/HR Fat Emulsion Intravenous 200 ml/Potassium Acetate 60 meq/ Potassium Phosphate 22 meq/ Magnesium Sulfate 6 meq/ Multivitamins 10 ml/Amino Acids/ Dextrose/Purified Water 2,146.5 ml @ 89 mls/hr Q24H8M IV 08/18/24 22:00 08/19/24 21:59 Acetaminophen/ Hydrocodone Bitart 1 tab Q6HPRN PRN NG 08/18/24 16:15 Gabapentin 100 mg BID NG 08/18/24 22:00 Atorvastatin Calcium 20 mg HS NG 08/18/24 22:00 laboratory and microbiology Laboratory Tests 08/18/24 06:16 Test 08/18/24 06:16 Range/Units Serum Glucose 151 H 74-106 mg/dL Microbiology Date/Time Source Procedure Growth Status 08/17/24 02:30 Nose MRSA Screen - Final Complete Problem List/Assessment/Plan Problem List/Assessment/Plan AFEBRILE VSS ABD SOFT ANGIOCATH IN PLACE GASTROSTOMY SITE ATTEMPT G TUBE PLACEMENT AM AT BEDSIDE NURSE AT BEDSIDE Plan discussed with: Other Dietary Evaluation Review Recommendations by RD: Increase Calorie Intake, PPN/TPN Comments: 1) TPN to meet at least 75% estimated needs 2) If GI is accessible, TF Jevity 1.2Cal @ 60ml/hr. Start @ 20ml/hr, increase 10ml/hr Q4H until goal is reached. Water flush 150ml Q6H TF @ goal volume provides 1728 kcal (101%) 80gm protein (108%) 1162ml free water 3) River 1 pk BID, Vit C 500mg BID, Zince sulfate 220mg daily x 10 days, MVI w/ minerals 1 tab daily 4) Continue current POC Expected Outcomes/Goals: Pt meets 75% estimated needs within 7 days FU 2-3 days Interpretation of weight loss: >20% in 1 year Body Fat Depletion (Severe): Mod to Severe Depletion Muscle Mass (Severe): Mod to Severe Depletion Protein Calorie Malnutrition: Severe Is there a minimum of two crit: Yes REBECCA WILKERSON MD August 18, 2024 21:07
[2024-08-18] MEDS: GABAPENTIN 100 MG CAP NG SCH (22:17)
[2024-08-18] MEDS: ATORVASTATIN 20 MG TAB NG SCH (22:17)
--- NOTE | 2024-08-18 22:44 | DVHPN2 ---
Progress Note - Dictate Date Seen: August 18, 2024 Has the PT tested + for MRSA If YES, has PT been informed?: No Medical Necessity Reason Pt with a Central, PICC or Fol: No Subjective This patient is 69 years old with a history of hypertension, CHF, history of stroke, seizure disorder, had a G-tube in place and that is the way he was getting nutrition, and it got pulled out or got displaced and I was asked to see him in regards to placement of a G-tube. vital signs Vital Sign Date Time Temp Pulse Resp B/P (MAP) Pulse Ox O2 Delivery O2 Flow Rate FiO2 08/18/24 21:00 98.2 112 20 118/74 (89) 97 98.2 08/18/24 08:00 Nasal Cannula* 5 40 Total Intake and Output 08/17/24 08/17/24 08/18/24 15:00 23:00 07:00 Intake Total 0 ml 1050 ml Output Total 300 ml 200 ml Balance -300 ml 850 ml medications Current Medications Medications Dose Ordered Sig/Ajith Route Start Time Stop Time Status Last Admin Dose Admin Sodium Chloride 1,000 ml @ 60 mls/hr [id number] IV 08/15/24 15:15 08/17/24 23:19 60 MLS/HR Enoxaparin Sodium 40 mg DAILY SC 08/17/24 10:00 08/18/24 10:06 40 MG Atorvastatin Calcium 20 mg HS PO 08/17/24 22:00 Acetaminophen/ Hydrocodone Bitart 1 tab QID PRN PO 08/17/24 09:00 Cancel Lorazepam 1 mg Q5MINP PRN IV 08/17/24 09:30 Amino Acids 0 ml @ 0 mls/hr PER PHARMACY IV 08/17/24 09:30 Levetiracetam 100 ml @ 400 mls/hr BID IV 08/17/24 22:00 08/18/24 10:06 400 MLS/HR Diagnostic Test (Pha) 1 strip Q6HR 08/17/24 12:00 08/18/24 18:00 1 STRIP Insulin Human Regular FOLLOW SLIDING SCALE Q6HR SC 08/17/24 12:00 08/18/24 06:29 2 UNITS Dextrose 50 ml UD IV 08/17/24 11:15 Fat Emulsion Intravenous 200 ml/Potassium Acetate 60 meq/ Potassium Phosphate 22 meq/ Magnesium Sulfate 6 meq/ Multivitamins 10 ml/Amino Acids/ Dextrose/Purified Water 2,146.5 ml @ 89 mls/hr Q24H8M IV 08/18/24 22:00 08/19/24 21:59 Acetaminophen/ Hydrocodone Bitart 1 tab Q6HPRN PRN NG 08/18/24 16:15 Gabapentin 100 mg BID NG 08/18/24 22:00 Atorvastatin Calcium 20 mg HS NG 08/18/24 22:00 objective VITAL SIGNS: Currently afebrile. Stable signs. HEENT: No evidence of pallor, cyanosis, or jaundice. NECK: Supple. Nontender. No thyromegaly. No lymphadenopathy. CHEST AND LUNGS: Clear. HEART: Within normal limits. ABDOMEN: Soft. He has an exit point from a previous G-tube placement. Abdomen itself is non-acute.no GT noted NEUROLOGIC: Not assessed. laboratory and microbiology Laboratory Tests 08/18/24 06:16 Test 08/18/24 06:16 Range/Units Serum Glucose 151 H 74-106 mg/dL Problems(with codes): (1) PEG tube malfunction Prognosis Plan NG tube was then placed Patient was on enteral tube feedings continue supportive care Percutaneous gastrostomy tube replacement likely will be done tomorrow Dietary Evaluation Review Recommendations by RD: Increase Calorie Intake, PPN/TPN Comments: 1) TPN to meet at least 75% estimated needs 2) If GI is accessible, TF Jevity 1.2Cal @ 60ml/hr. Start @ 20ml/hr, increase 10ml/hr Q4H until goal is reached. Water flush 150ml Q6H TF @ goal volume provides 1728 kcal (101%) 80gm protein (108%) 1162ml free water 3) River 1 pk BID, Vit C 500mg BID, Zince sulfate 220mg daily x 10 days, MVI w/ minerals 1 tab daily 4) Continue current POC Expected Outcomes/Goals: Pt meets 75% estimated needs within 7 days FU 2-3 days Interpretation of weight loss: >20% in 1 year Body Fat Depletion (Severe): Mod to Severe Depletion Muscle Mass (Severe): Mod to Severe Depletion Protein Calorie Malnutrition: Severe Is there a minimum of two crit: Yes Plan discussed with: Other (Dr Nano Brown) KADE BROWN MD August 18, 2024 22:44
[2024-08-19] VITALS (8 sets, daily range): BP systolic 113–128; BP diastolic 74–85; PULSE 86–110; RESP 18–20; TEMP 97.9–98.2; O2SAT 96–100
[2024-08-19 08:12] LABS: Alanine Aminotransferase 20 U/L (7-40); Alkaline Phosphatase 75 U/L (46-116); Anion Gap 9 (5-15); Carbon Dioxide 22 mmol/L (20-31)
[2024-08-19 08:13] LABS: Aspartate Aminotransferase 26 U/L (13-40); Bilirubin, Total 0.5 mg/dL (0.2-1.0)
[2024-08-19 08:17] LABS: Albumin 2.7 g/dL (3.2-4.8); Blood Urea Nitrogen 24 mg/dL (9-23); Calcium 8.1 mg/dL (8.7-10.4); Chloride 117 mmol/L (98-107); Glucose 113 mg/dL (74-106); Magnesium 1.6 mg/dL (1.6-2.6); Phosphorus 1.7 mg/dL (2.4-5.1); Potassium 3.4 mmol/L (3.5-5.1); Sodium 148 mmol/L (136-145); Total Protein 5.2 g/dL (5.7-8.2)
[2024-08-19] MEDS: MAGNESIUM SULFATE 1GM/100ML 100 ML IV SCH (13:41)
--- NOTE | 2024-08-19 13:42 | DVHPN2 ---
Progress Note - Dictate Date Seen: August 19, 2024 Has the PT tested + for MRSA If YES, has PT been informed?: No Medical Necessity Reason Pt with a Central, PICC or Fol: No Subjective This patient is 69 years old with a history of hypertension, CHF, history of stroke, seizure disorder, had a G-tube in place and that is the way he was getting nutrition, and it got pulled out or got displaced and I was asked to see him in regards to placement of a G-tube. G-tube was replaced by Dr. Nano Brown with a 14 Welsh replacement gastrostomy tube with a 5 mL balloon vital signs Vital Sign Date Time Temp Pulse Resp B/P (MAP) Pulse Ox O2 Delivery O2 Flow Rate FiO2 08/19/24 09:30 98.0 101 19 122/77 (92) 97 98.0 08/19/24 08:10 Nasal Cannula* 5 40 Total Intake and Output 08/18/24 08/18/24 08/19/24 15:00 23:00 07:00 Intake Total 1500 ml 0 ml Output Total 350 ml 500 ml Balance 1150 ml -500 ml medications Current Medications Medications Dose Ordered Sig/Ajith Route Start Time Stop Time Status Last Admin Dose Admin Sodium Chloride 1,000 ml @ 60 mls/hr [id number] IV 08/15/24 15:15 08/19/24 09:53 60 MLS/HR Enoxaparin Sodium 40 mg DAILY SC 08/17/24 10:00 08/19/24 09:39 40 MG Acetaminophen/ Hydrocodone Bitart 1 tab QID PRN PO 08/17/24 09:00 Cancel Lorazepam 1 mg Q5MINP PRN IV 08/17/24 09:30 Amino Acids 0 ml @ 0 mls/hr PER PHARMACY IV 08/17/24 09:30 Levetiracetam 100 ml @ 400 mls/hr BID IV 08/17/24 22:00 08/19/24 09:39 400 MLS/HR Diagnostic Test (Pha) 1 strip Q6HR 08/17/24 12:00 08/19/24 12:07 1 STRIP Insulin Human Regular FOLLOW SLIDING SCALE Q6HR SC 08/17/24 12:00 08/19/24 06:33 2 UNITS Dextrose 50 ml UD IV 08/17/24 11:15 Fat Emulsion Intravenous 200 ml/Potassium Acetate 60 meq/ Potassium Phosphate 22 meq/ Magnesium Sulfate 6 meq/ Multivitamins 10 ml/Amino Acids/ Dextrose/Purified Water 2,146.5 ml @ 89 mls/hr Q24H8M IV 08/18/24 22:00 08/19/24 21:59 08/18/24 22:19 89 MLS/HR Acetaminophen/ Hydrocodone Bitart 1 tab Q6HPRN PRN NG 08/18/24 16:15 Gabapentin 100 mg BID NG 08/18/24 22:00 08/19/24 09:39 100 MG Atorvastatin Calcium 20 mg HS NG 08/18/24 22:00 08/18/24 22:17 20 MG Fat Emulsion Intravenous 250 ml/Potassium Acetate 40 meq/ Magnesium Sulfate 8 meq/ Multivitamins 10 ml/Chromium/ Copper/Manganese/ Zinc 1 ml/ Potassium Phosphate 44 meq/ Amino Acids/ Dextrose/Purified Water 2,343 ml @ 95 mls/hr [id number] IV 08/19/24 22:00 08/20/24 21:59 Magnesium Sulfate/ Dextrose 100 ml @ 100 mls/hr Q1HR IV 08/19/24 12:00 08/19/24 13:59 objective VITAL SIGNS: Currently afebrile. Stable signs. HEENT: No evidence of pallor, cyanosis, or jaundice. NECK: Supple. Nontender. No thyromegaly. No lymphadenopathy. CHEST AND LUNGS: Clear. HEART: Within normal limits. ABDOMEN: Soft. He has an exit point from a previous G-tube placement. Abdomen itself is non-acute.no GT noted NEUROLOGIC: Not assessed. laboratory and microbiology Laboratory Tests 08/19/24 06:17 08/18/24 06:16 Test 08/19/24 06:17 Range/Units Serum Glucose 113 H 74-106 mg/dL Problems(with codes): (1) Hemiplegia following CVA (cerebrovascular accident) (2) Malfunction of gastrostomy tube Prognosis Plan Patient will against get a Gastrografin abdominal x-ray to check on the placement of the G-tube In the G-tube is in good place we can resume G-tube feedings and then arrange discharge planning I will follow up patient as needed Dietary Evaluation Review Recommendations by RD: Increase Calorie Intake, PPN/TPN Comments: 1) TPN to meet at least 75% estimated needs 2) If GI is accessible, TF Jevity 1.2Cal @ 60ml/hr. Start @ 20ml/hr, increase 10ml/hr Q4H until goal is reached. Water flush 150ml Q6H TF @ goal volume provides 1728 kcal (101%) 80gm protein (108%) 1162ml free water 3) River 1 pk BID, Vit C 500mg BID, Zince sulfate 220mg daily x 10 days, MVI w/ minerals 1 tab daily 4) Continue current POC Expected Outcomes/Goals: Pt meets 75% estimated needs within 7 days FU 2-3 days Interpretation of weight loss: >20% in 1 year Body Fat Depletion (Severe): Mod to Severe Depletion Muscle Mass (Severe): Mod to Severe Depletion Protein Calorie Malnutrition: Severe Is there a minimum of two crit: Yes Plan discussed with: Other (Dr Nano Brown) KADE BROWN MD August 19, 2024 13:42
--- NOTE | 2024-08-19 13:58 | DVHPN2 ---
Progress Note Date Seen: August 19, 2024 Has the PT tested + for MRSA If YES, has PT been informed?: No Medical Necessity Reason Pt with a Central, PICC or Fol: No Objective vital signs Vital Sign Date Time Temp Pulse Resp B/P (MAP) Pulse Ox O2 Delivery O2 Flow Rate FiO2 08/19/24 13:30 98.2 103 19 116/74 (88) 96 98.2 08/19/24 08:10 Nasal Cannula* 5 40 Total Intake and Output 08/18/24 08/18/24 08/19/24 15:00 23:00 07:00 Intake Total 1500 ml 0 ml Output Total 350 ml 500 ml Balance 1150 ml -500 ml medications Current Medications Medications Dose Ordered Sig/Ajith Route Start Time Stop Time Status Last Admin Dose Admin Sodium Chloride 1,000 ml @ 60 mls/hr [id number] IV 08/15/24 15:15 08/19/24 09:53 60 MLS/HR Enoxaparin Sodium 40 mg DAILY SC 08/17/24 10:00 08/19/24 09:39 40 MG Acetaminophen/ Hydrocodone Bitart 1 tab QID PRN PO 08/17/24 09:00 Cancel Lorazepam 1 mg Q5MINP PRN IV 08/17/24 09:30 Amino Acids 0 ml @ 0 mls/hr PER PHARMACY IV 08/17/24 09:30 Levetiracetam 100 ml @ 400 mls/hr BID IV 08/17/24 22:00 08/19/24 09:39 400 MLS/HR Diagnostic Test (Pha) 1 strip Q6HR 08/17/24 12:00 08/19/24 12:07 1 STRIP Insulin Human Regular FOLLOW SLIDING SCALE Q6HR SC 08/17/24 12:00 08/19/24 06:33 2 UNITS Dextrose 50 ml UD IV 08/17/24 11:15 Fat Emulsion Intravenous 200 ml/Potassium Acetate 60 meq/ Potassium Phosphate 22 meq/ Magnesium Sulfate 6 meq/ Multivitamins 10 ml/Amino Acids/ Dextrose/Purified Water 2,146.5 ml @ 89 mls/hr Q24H8M IV 08/18/24 22:00 08/19/24 21:59 08/18/24 22:19 89 MLS/HR Acetaminophen/ Hydrocodone Bitart 1 tab Q6HPRN PRN NG 08/18/24 16:15 Gabapentin 100 mg BID NG 08/18/24 22:00 08/19/24 09:39 100 MG Atorvastatin Calcium 20 mg HS NG 08/18/24 22:00 08/18/24 22:17 20 MG Fat Emulsion Intravenous 250 ml/Potassium Acetate 40 meq/ Magnesium Sulfate 8 meq/ Multivitamins 10 ml/Chromium/ Copper/Manganese/ Zinc 1 ml/ Potassium Phosphate 44 meq/ Amino Acids/ Dextrose/Purified Water 2,343 ml @ 95 mls/hr [id number] IV 08/19/24 22:00 08/20/24 21:59 Magnesium Sulfate/ Dextrose 100 ml @ 100 mls/hr Q1HR IV 08/19/24 12:00 08/19/24 13:59 08/19/24 13:41 100 MLS/HR laboratory and microbiology Laboratory Tests 08/19/24 06:17 08/18/24 06:16 Test 08/19/24 06:17 Range/Units Serum Glucose 113 H 74-106 mg/dL Microbiology Date/Time Source Procedure Growth Status 08/17/24 02:30 Nose MRSA Screen - Final Complete Problem List/Assessment/Plan Problem List/Assessment/Plan AFEBRILE VSS ABD SOFT ANGIOCATH IN PLACE GASTROSTOMY SITE ANGIOCATH ERMOVED G TUBE SIZE 14 F PLACED WITHOUT ANY COMPLICATION, BULB INFLATED WITH 5 CC SALINE G TUBE PLACEMENT DONE AT BEDSIDE NURSE AT BEDSIDE GASTROGRAFIN STUDY FOR G TUBE PLACEMENT CONFIRMATION Plan discussed with: Other Dietary Evaluation Review Recommendations by RD: Increase Calorie Intake, PPN/TPN Comments: 1) TPN to meet at least 75% estimated needs 2) If GI is accessible, TF Jevity 1.2Cal @ 60ml/hr. Start @ 20ml/hr, increase 10ml/hr Q4H until goal is reached. Water flush 150ml Q6H TF @ goal volume provides 1728 kcal (101%) 80gm protein (108%) 1162ml free water 3) River 1 pk BID, Vit C 500mg BID, Zince sulfate 220mg daily x 10 days, MVI w/ minerals 1 tab daily 4) Continue current POC Expected Outcomes/Goals: Pt meets 75% estimated needs within 7 days FU 2-3 days Interpretation of weight loss: >20% in 1 year Body Fat Depletion (Severe): Mod to Severe Depletion Muscle Mass (Severe): Mod to Severe Depletion Protein Calorie Malnutrition: Severe Is there a minimum of two crit: Yes REBECCA WILKERSON MD August 19, 2024 13:58
[2024-08-19] MEDS: GASTROGRAFIN 120 ML SOL ONE (14:37)
--- NOTE | 2024-08-19 15:30 | DVH ---
EXAM: XY KUB ABDOMEN SINGLE VIEW HISTORY: Check on G-tube placement COMPARISON: XY KUB ABDOMEN SINGLE VIEW on DOS: 08/15/24, XY KUB ABDOMEN SINGLE VIEW on DOS: 03/27/24, X Y PERCUTANEOUS G TUBE PL on DOS: 01/14/24 TECHNIQUE: Single AP of the abdomen and pelvis was obtained. Findings: Frontal view of the abdomen demonstrates multiple gaseous distended loops of bowel. No visualized haile al calculi. There is no evidence of an acute fracture, dislocation, blastic, or lytic lesions. The visualized portions of the lung bases are unremarkable. Multiple IVC filters. Percutaneous gastrostomy tube appears to terminate within the gastric lumen. No evidence of contrast extravasation. No superficial soft tissue abnormalities. Impression: 1. Multiple loops of gaseous distended bowel which may reflect ileus versus bowel obstruction. Correl ate with signs and symptoms. 2. Percutaneous gastrostomy tube appears to terminate within the gastric lumen. No definite evidence of contrast extravasation
[2024-08-19] MEDS: POTASSIUM PHOSPHATE 44 MEQ in D5W 5% 250 ML IV ONE (16:05)
--- NOTE | 2024-08-19 20:00 | DVHPNRES ---
Progress Note Date Seen: August 19, 2024 Resident Creating Document: INDRA AGUIRRE RESIDENT Has the PT tested + for MRSA If YES, has PT been informed?: No Medical Necessity Reason Pt with a Central, PICC or Fol: No Medical Necessity Reason History of Present Illness This is a 69-year-old male who is malnourished/ contracted to upper and lower extremities history of aneurysm, CHF, CVA, hyperlipidemia, hypertension, seizure and frequent UTI who was brought in by ambulance for malfunctioning of PEG tube as it was caught in something and the port/tip of the PEG tube was torn off. The patient is bed-bound, nonverbal, nonambulatory and a resident of a prison facility but recently resides with his nephew. The patient is a poor historian unable to answer any questions when asked during assessment. The patient is currently in no distress, eyes open and able to squeeze hand when asked to. The patient will be admitted under hospitalist care to the medical- surgical unit. Consult with GI specialist has been initiated as current PEG two we will need to be removed and new one we will need to be placed. Unable to obtain further information from the patient regarding symptoms due to being nonverbal. The plan has been discussed with the primary RN in which questions and concerns have been addressed. Pmhx: CHF, HTN, hyperipidemia, CVA, recurrent UTI, Seizure, Aneurysm, Past Surgical History: Fourteen [place], 3-5 mL peg tube Family History: Unknown Social: Lives with Family PN 08/16/2024 Patient is a 69-year-old gentleman with significant history of CHF CVA hyperlipidemia recurrent UTI and seizures feet with PEG tube was brought to the ED because of PEG tube malfunctioning. Patient is nonverbal and non-ambulatory at baseline. He was resident at a prison facility, but recently resides with his nephew. I was unable to get any information from the patient. Patient hears and responds with with a nod. Patient does not look to be in any form of distress. Currently pending GI consult for PEG tube replacement PN 08/18/2023: Patient is seen by surgery today. Malfunctioned G-tube was removed. Plan is to have a G-tube replacement in 24-48 hours per surgery. Patient is nonverbal at baseline was able to speak to the brother today and he said the last time the patient had any of his medication was before coming to the emergency room. We giving the patient some of the medications that can be given IV currently pain pending surgery for PEG tube replacement. Patient is notable to have a tachycardia no history of AFib noted currently patient is on telemetry. PN: 08/18/2024 Patient is seen and examined at the bedside today. Initially he was a little sleepy in the morning and not responding much. I checked his blood glucose and it was 140. He is also on 5 L of oxygen saturating around 96%. The afternoon, he was much more awake. When asked if he has any pain he pointed to his heard. He has chest tube and all feeding and medication will go through the NGT until the peg tube is replaced. Patient is likely to go for PEG replacement tomorrow and once that is done, He will be safe to go home. I made a call to the brother today to ask about the goal of care in terms of resuscitation goals. He did not answer. Thus, I left a message for him to give us a call back. PN: 08/19/2024 Patient is seen and examined at the bedside. He was sleeping at my visit this morning however later in the afternoon he was wide awake watching television he had no complaint. He was seen by surgery today and the PEG tube is replaced. Overall, he is fine. Will try using the peg tube and will discharge him arik home in the morning tomorrow. Subjective Review of Systems Review of Systems Unable to obtain review of system given his current condition. He is able to blink his eye or squeeze my hand for response Constitutional: frail HEENT: headache, Cardiovascular: unable to obtain Respiratory: unable to obtain GI: unable to obtain : unable to obtain Endocrine: unable to obtain Mark: unable to obtain Musculoskeletal: contracte Psych: unable to obtain Objective vital signs Vital Sign Date Time Temp Pulse Resp B/P (MAP) Pulse Ox O2 Delivery O2 Flow Rate FiO2 08/19/24 16:30 98.2 106 18 120/74 (89) 96 98.2 08/19/24 08:10 Nasal Cannula* 5 40 Total Intake and Output 08/18/24 08/18/24 08/19/24 15:00 23:00 07:00 Intake Total 1500 ml 0 ml Output Total 350 ml 500 ml Balance 1150 ml -500 ml medications Current Medications Medications Dose Ordered Sig/Ajith Route Start Time Stop Time Status Last Admin Dose Admin Sodium Chloride 1,000 ml @ 60 mls/hr [id number] IV 08/15/24 15:15 08/19/24 09:53 60 MLS/HR Enoxaparin Sodium 40 mg DAILY SC 08/17/24 10:00 08/19/24 09:39 40 MG Acetaminophen/ Hydrocodone Bitart 1 tab QID PRN PO 08/17/24 09:00 Cancel Lorazepam 1 mg Q5MINP PRN IV 08/17/24 09:30 Amino Acids 0 ml @ 0 mls/hr PER PHARMACY IV 08/17/24 09:30 Levetiracetam 100 ml @ 400 mls/hr BID IV 08/17/24 22:00 08/19/24 09:39 400 MLS/HR Diagnostic Test (Pha) 1 strip Q6HR 08/17/24 12:00 08/19/24 17:49 1 STRIP Insulin Human Regular FOLLOW SLIDING SCALE Q6HR SC 08/17/24 12:00 08/19/24 06:33 2 UNITS Dextrose 50 ml UD IV 08/17/24 11:15 Fat Emulsion Intravenous 200 ml/Potassium Acetate 60 meq/ Potassium Phosphate 22 meq/ Magnesium Sulfate 6 meq/ Multivitamins 10 ml/Amino Acids/ Dextrose/Purified Water 2,146.5 ml @ 89 mls/hr Q24H8M IV 08/18/24 22:00 08/19/24 21:59 08/18/24 22:19 89 MLS/HR Acetaminophen/ Hydrocodone Bitart 1 tab Q6HPRN PRN NG 08/18/24 16:15 Gabapentin 100 mg BID NG 08/18/24 22:00 08/19/24 09:39 100 MG Atorvastatin Calcium 20 mg HS NG 08/18/24 22:00 08/18/24 22:17 20 MG Fat Emulsion Intravenous 250 ml/Potassium Acetate 40 meq/ Magnesium Sulfate 8 meq/ Multivitamins 10 ml/Chromium/ Copper/Manganese/ Zinc 1 ml/ Potassium Phosphate 44 meq/ Amino Acids/ Dextrose/Purified Water 2,343 ml @ 95 mls/hr [id number] IV 08/19/24 22:00 08/20/24 21:59 Examination General Appearance: Sleeping but arousable, Cooperative, No acute distress, c achetic HEENT: Atraumatic, Respiratory: on 5L of oxygen spo2 96% Cardiovascular: Regular rate, Normal S1, Normal S2, No murmurs, no chest wall tenderness Abdominal: no tenderness, bowel sounds present, no scars noted, PEG tube replaced Extremities: contracted Skin: No rashes, No significant lesion Neuro: Nonambulatory Psych/Mental Status: unable to asse laboratory and microbiology Laboratory Tests 08/19/24 06:17 08/18/24 06:16 Test 08/19/24 06:17 Range/Units Serum Glucose 113 H 74-106 mg/dL Microbiology Date/Time Source Procedure Growth Status 08/17/24 02:30 Nose MRSA Screen - Final Complete Problem List/Assessment/Plan Problem List/Assessment/Plan Assessment/Plan Failure to thrive Severe protein calorie malnutrition PEG tube malfunction, PEG tube in place however the tip of the PEG tube where the ports are has been torn. --> tip turn off --> IV hydration -->placement of PEG tube tomorrow --> Please notify patient nephew to obtain nutritional supplementation brand and schedule a feeding--start after GI specialist clearance once PEG tube fixed Hypokalemia --> replaced with IV potassium rider with lidocaine Multiple Sacral decubitus ulcer stage 3/4 -->Wound consult --> full thickness wounds with no measurable depth noted on patient's sacrum (8x8cm) and R Lower Buttock (6x3cm) over pink collagen scar tissue. Acute on chronic respiratory failure --->on 5L of oxygen spo2 96 % Bed-bound Normal verbal Hypercholesterolemia Chronic Systolic vs diastolic CHF Uncontrolled hypertension History of seizures HF, HTN, hyperipidemia, CVA, History of recurrent UTI Seizure History aneurysm Fleet enema Assess for skin breakdown/turn q.2h hours Reconcile home med-- given via NG TUBE. Called his brother Jonah to update him DVT prophylaxis PUD prophylaxis Goal of care discussed with the nurse for more than 16 minute: Full code Discussed with DR. Fuentes Plan discussed with: Other (Nurse) My Orders My Orders Orders - INDRA AGUIRRE RESIDENT Procedure Category Date Status Time Transfer Orders XFER 08/19/24 Transmitted 08:18 Amino Acid PHA 08/19/24 In Process Infusion... W/Fat 22:00 Ppn Per Pharmacy WAQAR 08/19/24 In Process 22:00 Comprehensive LAB 08/20/24 Verified Metabolic Panel 04:00 Magnesium LAB 08/20/24 Verified 04:00 Phosphorus LAB 08/20/24 Verified 04:00 Transfer Orders XFER 08/19/24 Transmitted 11:58 Dietary Evaluation Review Recommendations by RD: Increase Calorie Intake, PPN/TPN Comments: 1) TPN to meet at least 75% estimated needs 2) If GI is accessible, TF Jevity 1.2Cal @ 60ml/hr. Start @ 20ml/hr, increase 10ml/hr Q4H until goal is reached. Water flush 150ml Q6H TF @ goal volume provides 1728 kcal (101%) 80gm protein (108%) 1162ml free water 3) River 1 pk BID, Vit C 500mg BID, Zince sulfate 220mg daily x 10 days, MVI w/ minerals 1 tab daily 4) Continue current POC Expected Outcomes/Goals: Pt meets 75% estimated needs within 7 days FU 2-3 days Interpretation of weight loss: >20% in 1 year Body Fat Depletion (Severe): Mod to Severe Depletion Muscle Mass (Severe): Mod to Severe Depletion Protein Calorie Malnutrition: Severe Is there a minimum of two crit: Yes Date of Service: August 19, 2024 Billing Provider: MARILEE ARROYO MD Common Visit Codes: [id number] INP/OBS CARE(HIGH) INDRA AGUIRRE RESIDENT August 19, 2024 20:00 MARILEE ARROYO MD August 30, 2024 02:38
[2024-08-19] MEDS: PPN PER PHARMACY IV NR (22:14)
[2024-08-20] VITALS (9 sets, daily range): BP systolic 113–128; BP diastolic 71–89; PULSE 68–90; RESP 14–19; TEMP 97.5–99.2; O2SAT 93–100
[2024-08-20 06:58] LABS: Alkaline Phosphatase 77 U/L (46-116); Anion Gap 9 (5-15); Blood Urea Nitrogen 18 mg/dL (9-23); Carbon Dioxide 24 mmol/L (20-31); Glucose 96 mg/dL (74-106)
[2024-08-20 06:59] LABS: Magnesium 1.9 mg/dL (1.6-2.6)
[2024-08-20 07:00] LABS: Bilirubin, Total 0.4 mg/dL (0.2-1.0)
[2024-08-20 07:03] LABS: Alanine Aminotransferase 52 U/L (7-40); Albumin 2.8 g/dL (3.2-4.8); Aspartate Aminotransferase 58 U/L (13-40); Calcium 7.7 mg/dL (8.7-10.4); Chloride 112 mmol/L (98-107); Phosphorus 2.4 mg/dL (2.4-5.1); Potassium 3.2 mmol/L (3.5-5.1); Sodium 145 mmol/L (136-145); Total Protein 5.4 g/dL (5.7-8.2)
[2024-08-20 10:58] LABS: Urine Bacteria None Seen /hpf (None Seen)
[2024-08-20] MEDS: POTASSIUM CHLORIDE 60 MEQ, LIDOCAINE 1% (LOCAL ANESTH.) 6 ML in SODIUM CHL 0.9% 500 ML IV ONE (11:00)
[2024-08-20 11:19] LABS: Urine Blood 3+ /uL (Negative); Urine Clarity Clear (Clear); Urine Color Yellow (Yellow); Urine Mucus FEW (None Seen); Urine Protein, UAD TRACE (Negative); Urine Specific Gravity 1.016 (1.001-1.035); Urine Squamous Epithelial Cell FEW /hpf (<5); Urine Urobilinogen 2 mg/dL (Negative); Urine WBC 21 /HPF (0-3)
[2024-08-20 11:25] LABS: Basophils # (auto) 0 10 ^3/uL (0-0.2); Eosinophils # (auto) 0 10 ^3/uL (0-0.8); Hemoglobin 7.9 g/dL (13.5-17.5); Lymphocytes # (auto) 0.4 10 ^3/uL (0.4-5.4); Monocytes # (auto) 0.2 10 ^3/uL (0-1.3); White Blood Cell 3.6 10^3/uL (4.4-10.8)
[2024-08-20 11:28] LABS: Eosinophils % (auto) 1.2 % (0.0-7.0); Hematocrit 23.9 % (41.0-53.0); Lymphocytes % (auto) 11.1 % (10.0-50.0); Mean Corpuscular Hemoglobin 33.6 pg (28.0-32.0); Mean Corpuscular Hgb Conc. 33.2 g/dL (32.0-36.0); Monocytes % (auto) 6.8 % (0.0-12.0); Neutrophils # (auto) 2.9 10 ^3/uL (1.6-8.6); Neutrophils % (auto) 80.9 % (37.0-80.0); Nucleated Red Blood Cells % 0.2 %; Platelet Count (auto) 105 10^3/uL (140-450); Red Blood Cells 2.37 10^6/uL (4.5-5.90); Red Cell Distribution Width 14.9 % (11.8-14.3)
[2024-08-20] MEDS: SODIUM PHOSPHATES 20 MEQ in SODIUM CHL 0.9% 100 ML IV ONE (12:45)
--- NOTE | 2024-08-20 13:57 | DVH ---
EXAM: XY CHEST XRAY 1 VIEW HISTORY: Confirmation of NG tube placement. COMPARISON: XY CHEST PORTABLE on DOS: 08/16/24, XY CHEST PORTABLE on DOS: 01/11/24, CHEST PORTABLE on DO S: 02/25/20 TECHNIQUE: Portable upright AP view of the chest was performed. FINDINGS: The film is rotated LPO. There is been interval removal of the endotracheal tube. NG tube is identifi ed with its tip at the level of the GE junction. There are opacities throughout the left lung, most d ense in the left lung base. There is leftward shift of the heart and mediastinum. The patient's right hand obscures the right upper lobe. The right lung base is clear. The heart is not enlarged. The aor tic arch is calcific. The loop of colon is interposed between the right hemidiaphragm and liver. IMPRESSION: 1. NG tube tip is of the level of the GE junction. 2. Infiltrates throughout the left lung, most dense in the left lung base. As there is leftward shift of the heart and mediastinum, this is suggestive of atelectasis, possibly due to mucous plugging.
[2024-08-20] MEDS: GASTROGRAFIN 30 ML SOL ONE (15:18)
--- NOTE | 2024-08-20 16:27 | DVH ---
Exam: XY POST PROCEDURE ABD/PEL XRAY Indication: g-tube placement confirmation Comparison: XY KUB ABDOMEN SINGLE VIEW on DOS: 08/19/24, XY KUB ABDOMEN SINGLE VIEW on DOS: 08/15/24, XY KUB ABDOMEN SINGLE VIEW on DOS: 03/27/24, XY PERCUTANEOUS G TUBE PL on DOS: 01/14/24 Technique: 3 radiographic views of the abdomen. Findings: Gastrostomy tube in satisfactory position demonstrating opacification of the stomach. Nonspecific bowel-gas pattern. There is no definite evidence for pneumoperitoneum. No abnormal calcifications noted. Impression: Gastrostomy tube in satisfactory position.
--- NOTE | 2024-08-20 17:24 | DVHDSRES ---
Discharge Summary Date of Admission Resident Creating Document: INDRA AGUIRRE RESIDENT August 15, 2024 at 15:09 Date of Discharge: August 20, 2024 Admitting Diagnosis PEG-tube malfunction Wounds: Multiple Sacral decubitus ulcer stage 3/4 Labs/Diagnostic Data: Laboratory Results Test 08/20/24 11:55 08/20/24 11:30 08/20/24 11:05 08/20/24 10:26 Magnesium Level 1.8 mg/dL (1.6-2.6) POC Glucose 80 mg/dl (70-106) White Blood Count 3.6 10^3/uL (4.4-10.8) Red Blood Count 2.37 10^6/uL (4.5-5.90) Hemoglobin 7.9 g/dL (13.5-17.5) Hematocrit 23.9 % (41.0-53.0) Mean Corpuscular Volume 101.0 fL (80.0-100.0) Mean Corpuscular Hemoglobin 33.6 pg (28.0-32.0) Mean Corpuscular Hemoglobin Concent 33.2 g/dL (32.0-36.0) Red Cell Distribution Width 14.9 % (11.8-14.3) Platelet Count 105 10^3/uL (140-450) Mean Platelet Volume 7.9 fL (6.9-10.8) Neutrophils (%) (Auto) 80.9 % (37.0-80.0) Lymphocytes (%) (Auto) 11.1 % (10.0-50.0) Monocytes (%) (Auto) 6.8 % (0.0-12.0) Eosinophils (%) (Auto) 1.2 % (0.0-7.0) Basophils (%) (Auto) 0.0 % (0.0-2.0) Neutrophils # (Auto) 2.9 10 ^3/uL (1.6-8.6) Lymphocytes # (Auto) 0.4 10 ^3/uL (0.4-5.4) Monocytes # (Auto) 0.2 10 ^3/uL (0-1.3) Eosinophils # (Auto) 0 10 ^3/uL (0-0.8) Basophils # (Auto) 0 10 ^3/uL (0-0.2) Nucleated Red Blood Cells 0.2 % Urine Color Yellow (Yellow) Urine Clarity Clear (Clear) Urine pH 6.0 (5.0-9.0) Urine Specific [place] 1.016 (1.001-1.035) Urine Protein Trace (Negative) Urine Ketones Negative (Negative) Urine Blood 3+ /uL (Negative) Urine Nitrite Negative (Negative) Urine Bilirubin Negative (Negative) Urine Urobilinogen 2 mg/dL (Negative) Urine Leukocyte Esterase Trace /uL (Negative) Urine RBC 216 /hpf (0 - 3) Urine Microscopic WBC 21 /HPF (0-3) Urine Squamous Epithelial Cells Few /hpf (<5) Urine Bacteria None seen /hpf (None Seen) Urine Mucus Few (None Seen) Urine Glucose Normal mg/dL (Normal) Test 08/20/24 09:35 08/20/24 06:11 08/17/24 10:07 08/15/24 11:00 Stool for White Cells Rare Sodium Level 145 mmol/L (136-145) Potassium Level 3.2 mmol/L (3.5-5.1) Chloride Level 112 mmol/L (98-107) Carbon Dioxide Level 24 mmol/L (20-31) Anion Gap 9 (5-15) Blood Urea Nitrogen 18 mg/dL (9-23) Creatinine 0.40 mg/dL (0.700-1.30) Glomerular Filtration Rate Calc 120 mL/min (>90) BUN/Creatinine Ratio 45.0 (10.0-20.0) Serum Glucose 96 mg/dL (74-106) Calcium Level 7.7 mg/dL (8.7-10.4) Phosphorus Level 2.4 mg/dL (2.4-5.1) Total Bilirubin 0.4 mg/dL (0.2-1.0) Aspartate Amino Transferase (AST) 58 U/L (13-40) Alanine Aminotransferase (ALT) 52 U/L (7-40) Alkaline Phosphatase 77 U/L (46-116) Total Protein 5.4 g/dL (5.7-8.2) Albumin 2.8 g/dL (3.2-4.8) Triglycerides Level 62 mg/dL (< 150) Lactic Acid Level 0.9 mmol/L (0.4-2.0) Troponin I High Sensitivity 5 ng/L (</=54) B-Type Natriuretic Peptide 19.66 pg/mL (0-100) Other Laboratory Tests 08/20/24 11:05 08/20/24 06:11 Brief Hx & Hospital Course: History of Present Illness This is a 69-year-old male who is malnourished/ contracted to upper and lower extremities history of aneurysm, CHF, CVA, hyperlipidemia, hypertension, seizure and frequent UTI who was brought in by ambulance for malfunctioning of PEG tube as it was caught in something and the port/tip of the PEG tube was torn off. The patient is bed-bound, nonverbal, non-ambulatory and a resident of a senior care facility but recently resides with his nephew. The patient is a poor historian unable to answer any questions when asked during assessment. The patient is currently in no distress, eyes open and able to squeeze hand when asked to. The patient will be admitted under hospitalist care to the medical- surgical unit. Consult with GI specialist has been initiated as current PEG two we will need to be removed and new one we will need to be placed. Unable to obtain further information from the patient regarding symptoms due to being nonverbal. The plan has been discussed with the primary RN in which questions and concerns have been addressed. Pmhx: CHF, HTN, hyperipidemia, CVA, recurrent UTI, Seizure, Aneurysm, Past Surgical History: Fourteen [place] Citizen, 3-5 mL peg tube Family History: Unknown Social: Lives with Family Brief Hospital course Patient is a 69-year-old male with past medical history of CHF CVA hyperlipidemia recurrent UTI and seizures feet with PEG tube was brought to the ED because of PEG tube malfunction. At baseline, patient is nonverbal and is cared for by his nephew but patient was previous a resident at a senior care facility. He received an NG tube through which he he received his medication. PPN was provided as a source of nutrition.On admission, patient did not seem to be in any form of distress. GI and surgery saw the patient for the Peg tube replacement. Peg tube was replaced yesterday. It did not hold properly and was replaced today. Currently is stable and sleeping. Vitals are stable and will discharge patient home. Nurse called the family and they wanted IEP transportation to bring the patient home. Review of Systems Unable to obtain review of system given his current condition. He is able to blink his eye or squeeze my hand for response Constitutional: frail HEENT: headache, Cardiovascular: unable to obtain Respiratory: unable to obtain GI: unable to obtain : unable to obtain Endocrine: unable to obtain Mark: unable to obtain Musculoskeletal: contracte Psych: unable to obtain Examination General Appearance: Sleeping but arousable, Cooperative, No acute distress, c achetic HEENT: Atraumatic, Respiratory: on 5L of oxygen spo2 96% Cardiovascular: Regular rate, Normal S1, Normal S2, No murmurs, no chest wall tenderness Abdominal: no tenderness, bowel sounds present, no scars noted, PEG tube replaced Extremities: contracted Skin: No rashes, No significant lesion Neuro: Non-ambulatory Psych/Mental Status: unable to asses Diagnoses Failure to thrive Severe protein calorie malnutrition, BMI 15.5 PEG tube malfunction, PEG tube in place however the tip of the PEG tube where the ports are has been torn. Hypokalemia replaced with IV potassium rider with lidocaine Multiple Sacral decubitus ulcer stage 3/4 Acute on chronic respiratory failure Bed-bound Normal verbal Hypercholesterolemia Chronic Systolic vs diastolic CHF Uncontrolled hypertension History of seizures HF, HTN, hyperipidemia, CVA, History of recurrent UTI Seizure History aneurysm Discharge plan Stable Discharge home with home health Continue care via the peg tube, Peg tube in place Consider Hospice Case and discharge plan discussed with Dr. Fuentes Consults/Reason for consult GI: Nutritional assessment, non-verbal Surgery: PEG tube replacement Condition at Discharge: Poor Final Diagnosis/Problems List Failure to thrive Severe protein calorie malnutrition PEG tube malfunction, PEG tube in place however the tip of the PEG tube where the ports are has been torn. Hypokalemia replaced with IV potassium rider with lidocaine Multiple Sacral decubitus ulcer stage 3/4 Acute on chronic respiratory failure Bed-bound Normal verbal Hypercholesterolemia Chronic Systolic vs diastolic CHF Uncontrolled hypertension History of seizures HF, HTN, hyperipidemia, CVA, History of recurrent UTI Seizure History aneurysm Discharge Disposition: Home with Health Services Discharge Instruct/Medications Diet: Regular Diet comment: Continue tube feeding Activity: See Comment Activity comment: At his baseline Follow Up/Referral: follow up with PCP Medications: HOme medications Discharge Statement: "Patient was advised to return to the ER or call 911 if any headaches, dizziness, shortness of breath, chest pain, abdominal pain, bleeding, fevers, or worsening of medical condition. Patient was counseled about treatment plan, medications, possible side effects, patient�verbalized understanding. All questions were answered to the best of my ability. This discharge took greater then 30 minutes in planning, reviewing documentation, counseling the patient, and discussing with other team members." ASSESSMENT ASSESSMENT Assessment Failure to thrive Severe protein calorie malnutrition PEG tube malfunction, PEG tube in place however the tip of the PEG tube where the ports are has been torn. Hypokalemia replaced with IV potassium rider with lidocaine Multiple Sacral decubitus ulcer stage 3/4 Acute on chronic respiratory failure Bed-bound Normal verbal Hypercholesterolemia Chronic Systolic vs diastolic CHF Uncontrolled hypertension History of seizures HF, HTN, hyperipidemia, CVA, History of recurrent UTI Seizure History aneurysm INDRA AGUIRRE RESIDENT August 20, 2024 17:24
[2024-08-20] MEDS: PPN PER PHARMACY IV NR (21:47)
[2024-08-21] VITALS (8 sets, daily range): BP systolic 119–145; BP diastolic 83–105; PULSE 107–122; RESP 16–19; TEMP 97.5–98.6; O2SAT 94–100
[2024-08-21 08:54] LABS: Albumin 3.4 g/dL (3.2-4.8); Alkaline Phosphatase 108 U/L (46-116); Anion Gap 8 (5-15); BUN/Creatinine Ratio 32.7 (10.0-20.0); Blood Urea Nitrogen 16 mg/dL (9-23); Calcium 9.5 mg/dL (8.7-10.4); Carbon Dioxide 27 mmol/L (20-31); Chloride 107 mmol/L (98-107); Magnesium 1.8 mg/dL (1.6-2.6); Sodium 142 mmol/L (136-145); Total Protein 6.7 g/dL (5.7-8.2)
[2024-08-21 08:55] LABS: Bilirubin, Total 0.5 mg/dL (0.2-1.0)
[2024-08-21 08:59] LABS: Alanine Aminotransferase 57 U/L (7-40); Aspartate Aminotransferase 50 U/L (13-40); Glucose 109 mg/dL (74-106); Phosphorus 2.2 mg/dL (2.4-5.1)
[2024-08-21 10:46] LABS: Basophils # (auto) 0 10 ^3/uL (0-0.2); Eosinophils # (auto) 0 10 ^3/uL (0-0.8); Lymphocytes # (auto) 0.3 10 ^3/uL (0.4-5.4); Monocytes # (auto) 0.5 10 ^3/uL (0-1.3)
[2024-08-21 10:49] LABS: Basophils % (auto) 0.6 % (0.0-2.0); Eosinophils % (auto) 0.3 % (0.0-7.0); Hematocrit 37.3 % (41.0-53.0); Hemoglobin 12.4 g/dL (13.5-17.5); Lymphocytes % (auto) 3.9 % (10.0-50.0); Mean Corpuscular Hemoglobin 36.6 pg (28.0-32.0); Mean Corpuscular Hgb Conc. 33.3 g/dL (32.0-36.0); Mean Corpuscular Volume 109.7 fL (80.0-100.0); Neutrophils # (auto) 6.2 10 ^3/uL (1.6-8.6); Neutrophils % (auto) 88.2 % (37.0-80.0); Nucleated Red Blood Cells % 0.2 %; Platelet Count (auto) 165 10^3/uL (140-450); Red Cell Distribution Width 16.8 % (11.8-14.3)
--- NOTE | 2024-08-21 19:45 | DVHPNRES ---
Progress Note Date Seen: August 21, 2024 Resident Creating Document: INDRA AGUIRRE RESIDENT Has the PT tested + for MRSA If YES, has PT been informed?: No Medical Necessity Reason Pt with a Central, PICC or Fol: No Medical Necessity Reason History of Present Illness This is a 69-year-old male who is malnourished/ contracted to upper and lower extremities history of aneurysm, CHF, CVA, hyperlipidemia, hypertension, seizure and frequent UTI who was brought in by ambulance for malfunctioning of PEG tube as it was caught in something and the port/tip of the PEG tube was torn off. The patient is bed-bound, nonverbal, nonambulatory and a resident of a correction facility but recently resides with his nephew. The patient is a poor historian unable to answer any questions when asked during assessment. The patient is currently in no distress, eyes open and able to squeeze hand when asked to. The patient will be admitted under hospitalist care to the medical- surgical unit. Consult with GI specialist has been initiated as current PEG two we will need to be removed and new one we will need to be placed. Unable to obtain further information from the patient regarding symptoms due to being nonverbal. The plan has been discussed with the primary RN in which questions and concerns have been addressed. Pmhx: CHF, HTN, hyperipidemia, CVA, recurrent UTI, Seizure, Aneurysm, Past Surgical History: Fourteen Croatian, 3-5 mL peg tube Family History: Unknown Social: Lives with Family PN 08/16/2024 Patient is a 69-year-old gentleman with significant history of CHF CVA hyperlipidemia recurrent UTI and seizures feet with PEG tube was brought to the ED because of PEG tube malfunctioning. Patient is nonverbal and non-ambulatory at baseline. He was resident at a correction facility, but recently resides with his nephew. I was unable to get any information from the patient. Patient hears and responds with with a nod. Patient does not look to be in any form of distress. Currently pending GI consult for PEG tube replacement PN 08/18/2023: Patient is seen by surgery today. Malfunctioned G-tube was removed. Plan is to have a G-tube replacement in 24-48 hours per surgery. Patient is nonverbal at baseline was able to speak to the brother today and he said the last time the patient had any of his medication was before coming to the emergency room. We giving the patient some of the medications that can be given IV currently pain pending surgery for PEG tube replacement. Patient is notable to have a tachycardia no history of AFib noted currently patient is on telemetry. PN: 08/18/2024 Patient is seen and examined at the bedside today. Initially he was a little sleepy in the morning and not responding much. I checked his blood glucose and it was 140. He is also on 5 L of oxygen saturating around 96%. The afternoon, he was much more awake. When asked if he has any pain he pointed to his heard. He has chest tube and all feeding and medication will go through the NGT until the peg tube is replaced. Patient is likely to go for PEG replacement tomorrow and once that is done, He will be safe to go home. I made a call to the brother today to ask about the goal of care in terms of resuscitation goals. He did not answer. Thus, I left a message for him to give us a call back. PN: 08/19/2024 Patient is seen and examined at the bedside. He was sleeping at my visit this morning however later in the afternoon he was wide awake watching television he had no complaint. He was seen by surgery today and the PEG tube is replaced. Overall, he is fine. Will try using the peg tube and will discharge him arik home in the morning tomorrow. pn: Patient was unable to live yesterday because his brother called last minute to say he does not have any oxygen at home so we needed to give him oxygen before he comes on. Right now patient is currently pending transportation to be discharged. Subjective Review of Systems Review of Systems Unable to obtain review of system given his current condition. He is able to blink his eye or squeeze my hand for response Constitutional: frail HEENT: headache, Cardiovascular: unable to obtain Respiratory: unable to obtain GI: unable to obtain : unable to obtain Endocrine: unable to obtain Mark: unable to obtain Musculoskeletal: contracte Psych: unable to obtain Objective vital signs Vital Sign Date Time Temp Pulse Resp B/P (MAP) Pulse Ox O2 Delivery O2 Flow Rate FiO2 08/21/24 16:38 98.6 121 16 145/105 (118) 100 98.6 08/21/24 08:00 Nasal Cannula* 5 40 Total Intake and Output 08/20/24 08/20/24 08/21/24 15:00 23:00 07:00 Intake Total 0 ml 0 ml Output Total 675 ml 1250 ml Balance -675 ml -1250 ml medications Current Medications Medications Dose Ordered Sig/Ajith Route Start Time Stop Time Status Last Admin Dose Admin Sodium Chloride 1,000 ml @ 60 mls/hr [id number] IV 08/15/24 15:15 08/21/24 04:57 60 MLS/HR Enoxaparin Sodium 40 mg DAILY SC 08/17/24 10:00 08/20/24 10:42 40 MG Acetaminophen/ Hydrocodone Bitart 1 tab QID PRN PO 08/17/24 09:00 Cancel Lorazepam 1 mg Q5MINP PRN IV 08/17/24 09:30 Amino Acids 0 ml @ 0 mls/hr PER PHARMACY IV 08/17/24 09:30 Levetiracetam 100 ml @ 400 mls/hr BID IV 08/17/24 22:00 08/21/24 10:17 400 MLS/HR Diagnostic Test (Pha) 1 strip Q6HR 08/17/24 12:00 08/21/24 17:37 1 STRIP Insulin Human Regular FOLLOW SLIDING SCALE Q6HR SC 08/17/24 12:00 08/19/24 06:33 2 UNITS Dextrose 50 ml UD IV 08/17/24 11:15 Acetaminophen/ Hydrocodone Bitart 1 tab Q6HPRN PRN NG 08/18/24 16:15 Gabapentin 100 mg BID NG 08/18/24 22:00 08/21/24 10:17 100 MG Atorvastatin Calcium 20 mg HS NG 08/18/24 22:00 08/20/24 21:36 20 MG Fat Emulsion Intravenous 200 ml/Potassium Acetate 50 meq/ Potassium Phosphate 50 meq/ Calcium Gluconate 2.3 meq/Magnesium Sulfate 12 meq/ Multivitamins 10 ml/Chromium/ Copper/Manganese/ Zinc 1 ml/Amino Acids/Dextrose/ Purified Water 2,255.3098 ml @ 94 mls/hr Q24H IV 08/20/24 22:00 08/21/24 21:59 08/20/24 21:47 94 MLS/HR Fat Emulsion Intravenous 200 ml/Potassium Acetate 20 meq/ Potassium Phosphate 66 meq/ Magnesium Sulfate 16 meq/ Multivitamins 10 ml/Chromium/ Copper/Manganese/ Zinc 1 ml/Amino Acids/Dextrose/ Purified Water 2,340 ml @ 97 mls/hr Q24H8M IV 08/21/24 22:00 08/22/24 21:59 Examination General Appearance: Sleeping but arousable, Cooperative, No acute distress, c achetic HEENT: Atraumatic, Respiratory: on 5L of oxygen spo2 96% Cardiovascular: Regular rate, Normal S1, Normal S2, No murmurs, no chest wall tenderness Abdominal: no tenderness, bowel sounds present, no scars noted, PEG tube replaced Extremities: contracted Skin: No rashes, No significant lesion Neuro: Nonambulatory Psych/Mental Status: unable to asses laboratory and microbiology Laboratory Tests 08/21/24 08:12 08/21/24 06:12 Test 08/21/24 08:12 Range/Units Serum Glucose 109 H 74-106 mg/dL Microbiology Date/Time Source Procedure Growth Status 08/20/24 09:35 Stool Stool Culture - Preliminary Resulted 08/20/24 09:35 Stool Shiga Toxin I & II - Final Resulted 08/17/24 02:30 Nose MRSA Screen - Final Complete Problem List/Assessment/Plan Problem List/Assessment/Plan Assessment/Plan Failure to thrive Severe protein calorie malnutrition PEG tube malfunction, PEG tube in place however the tip of the PEG tube where the ports are has been torn. --> tip turn off --> IV hydration -->placement of PEG tube tomorrow --> Please notify patient nephew to obtain nutritional supplementation brand and schedule a feeding--start after GI specialist clearance once PEG tube fixed Hypokalemia --> replaced with IV potassium rider with lidocaine Multiple Sacral decubitus ulcer stage 3/4 -->Wound consult --> full thickness wounds with no measurable depth noted on patient's sacrum (8x8cm) and R Lower Buttock (6x3cm) over pink collagen scar tissue. Acute on chronic respiratory failure --->on 5L of oxygen spo2 96 % Bed-bound Normal verbal Hypercholesterolemia Chronic Systolic vs diastolic CHF Uncontrolled hypertension History of seizures HF, HTN, hyperipidemia, CVA, History of recurrent UTI Seizure History aneurysm Fleet enema Assess for skin breakdown/turn q.2h hours Reconcile home med-- given via NG TUBE. Called his brother Jonah to update him DVT prophylaxis PUD prophylaxis Goal of care discussed with the nurse for more than 16 minute: Full code Discussed with DR. Fuentes Plan discussed with: Other My Orders My Orders Orders - INDRA AGUIRRE Procedure Category Date Status Time Amino Acid PHA 08/21/24 In Process Infusion... W/Fat 22:00 Comprehensive LAB 08/22/24 Verified Metabolic Panel 04:00 Magnesium LAB 08/22/24 Verified 04:00 Phosphorus LAB 08/22/24 Verified 04:00 Ppn Per Pharmacy WAQAR 08/21/24 In Process 22:00 * Director Of Global Sales CONS 08/21/24 Transmitted Consult Dietary Evaluation Review Recommendations by RD: Increase Calorie Intake, PPN/TPN Comments: 1) TPN to meet at least 75% estimated needs 2) If GI is accessible, TF Jevity 1.2Cal @ 60ml/hr. Start @ 20ml/hr, increase 10ml/hr Q4H until goal is reached. Water flush 150ml Q6H TF @ goal volume provides 1728 kcal (101%) 80gm protein (108%) 1162ml free water 3) River 1 pk BID, Vit C 500mg BID, Zince sulfate 220mg daily x 10 days, MVI w/ minerals 1 tab daily 4) Continue current POC Expected Outcomes/Goals: Pt meets 75% estimated needs within 7 days FU 2-3 days Interpretation of weight loss: >20% in 1 year Body Fat Depletion (Severe): Mod to Severe Depletion Muscle Mass (Severe): Mod to Severe Depletion Protein Calorie Malnutrition: Severe Is there a minimum of two crit: Yes Date of Service: August 21, 2024 Billing Provider: MARILEE ARROYO MD Common Visit Codes: [id number] INP/OBS CARE(HIGH) INDRA AGUIRRE August 21, 2024 19:45 MARILEE ARROYO MD August 30, 2024 02:56
[2024-08-21] MEDS: PPN PER PHARMACY IV NR (22:00)
[2024-08-21] MEDS: Ensure Enlive Chocolate 8oz Bottle GT SCH (22:00)
[2024-08-21] MEDS: FREE WATER GT SCH (22:35)
--- NOTE | 2024-08-21 22:54 | DVHPN2 ---
Progress Note - Dictate Date Seen: August 21, 2024 Has the PT tested + for MRSA If YES, has PT been informed?: No Medical Necessity Reason Pt with a Central, PICC or Fol: No Subjective This patient is 69 years old with a history of hypertension, CHF, history of stroke, seizure disorder, had a G-tube in place and that is the way he was getting nutrition, and it got pulled out or got displaced and I was asked to see him in regards to placement of a G-tube. G-tube was replaced by Dr. Nano Brown with a 14 [place]ian replacement gastrostomy tube with a 5 mL balloon vital signs Vital Sign Date Time Temp Pulse Resp B/P (MAP) Pulse Ox O2 Delivery O2 Flow Rate FiO2 08/21/24 16:38 98.6 121 16 145/105 (118) 100 98.6 08/21/24 08:00 Nasal Cannula* 5 40 Total Intake and Output 08/20/24 08/20/24 08/21/24 15:00 23:00 07:00 Intake Total 0 ml 0 ml Output Total 675 ml 1250 ml Balance -675 ml -1250 ml medications Current Medications Medications Dose Ordered Sig/Ajith Route Start Time Stop Time Status Last Admin Dose Admin Sodium Chloride 1,000 ml @ 60 mls/hr [id number] IV 08/15/24 15:15 08/21/24 04:57 60 MLS/HR Enoxaparin Sodium 40 mg DAILY SC 08/17/24 10:00 08/20/24 10:42 40 MG Acetaminophen/ Hydrocodone Bitart 1 tab QID PRN PO 08/17/24 09:00 Cancel Lorazepam 1 mg Q5MINP PRN IV 08/17/24 09:30 Amino Acids 0 ml @ 0 mls/hr PER PHARMACY IV 08/17/24 09:30 Levetiracetam 100 ml @ 400 mls/hr BID IV 08/17/24 22:00 08/21/24 10:17 400 MLS/HR Diagnostic Test (Pha) 1 strip Q6HR 08/17/24 12:00 08/21/24 17:37 1 STRIP Insulin Human Regular FOLLOW SLIDING SCALE Q6HR SC 08/17/24 12:00 08/19/24 06:33 2 UNITS Dextrose 50 ml UD IV 08/17/24 11:15 Acetaminophen/ Hydrocodone Bitart 1 tab Q6HPRN PRN NG 08/18/24 16:15 Gabapentin 100 mg BID NG 08/18/24 22:00 08/21/24 22:32 100 MG Atorvastatin Calcium 20 mg HS NG 08/18/24 22:00 08/21/24 22:32 20 MG Fat Emulsion Intravenous 200 ml/Potassium Acetate 20 meq/ Potassium Phosphate 66 meq/ Magnesium Sulfate 16 meq/ Multivitamins 10 ml/Chromium/ Copper/Manganese/ Zinc 1 ml/Amino Acids/Dextrose/ Purified Water 2,340 ml @ 97 mls/hr Q24H8M IV 08/21/24 22:00 08/22/24 21:59 Purified Water 250 ml QID GT 08/21/24 22:00 08/21/24 22:35 250 ML Enteral Nutritional Formula 240 ml QID GT 08/21/24 22:00 objective VITAL SIGNS: Currently afebrile. Stable signs. HEENT: No evidence of pallor, cyanosis, or jaundice. NECK: Supple. Nontender. No thyromegaly. No lymphadenopathy. CHEST AND LUNGS: Clear. HEART: Within normal limits. ABDOMEN: Soft. He has an exit point from a previous G-tube placement. Abdomen itself is non-acute.no GT noted NEUROLOGIC: Not assessed. laboratory and microbiology Laboratory Tests 08/21/24 08:12 08/21/24 06:12 Test 08/21/24 08:12 Range/Units Serum Glucose 109 H 74-106 mg/dL Problems(with codes): (1) Malfunction of gastrostomy tube Prognosis PLAN Start enteral tube feedings via GT 1 can ensure q 6 hrs Free water via GT D/C planning ongoing Dietary Evaluation Review Recommendations by RD: Increase Calorie Intake, PPN/TPN Comments: 1) TPN to meet at least 75% estimated needs 2) If GI is accessible, TF Jevity 1.2Cal @ 60ml/hr. Start @ 20ml/hr, increase 10ml/hr Q4H until goal is reached. Water flush 150ml Q6H TF @ goal volume provides 1728 kcal (101%) 80gm protein (108%) 1162ml free water 3) River 1 pk BID, Vit C 500mg BID, Zince sulfate 220mg daily x 10 days, MVI w/ minerals 1 tab daily 4) Continue current POC Expected Outcomes/Goals: Pt meets 75% estimated needs within 7 days FU 2-3 days Interpretation of weight loss: >20% in 1 year Body Fat Depletion (Severe): Mod to Severe Depletion Muscle Mass (Severe): Mod to Severe Depletion Protein Calorie Malnutrition: Severe Is there a minimum of two crit: Yes Plan discussed with: Other (Nurse) KADE BROWN MD August 21, 2024 22:54
[2024-08-22 01:00] VITALS: BP 146/96; PULSE 115; RESP 17; TEMP 97.6; O2SAT 98
[2024-08-22 05:00] VITALS: BP 142/90; PULSE 121; RESP 18; TEMP 96.9; O2SAT 95
[2024-08-22] MEDS: HYDROcodone-ACET 5/325MG TAB NG PRN (06:13)
[2024-08-22 07:43] LABS: Albumin 4.2 g/dL (3.2-4.8); Anion Gap 12 (5-15); BUN/Creatinine Ratio 29.1 (10.0-20.0); Blood Urea Nitrogen 16 mg/dL (9-23); Calcium 10.3 mg/dL (8.7-10.4); Carbon Dioxide 26 mmol/L (20-31); Chloride 100 mmol/L (98-107); Magnesium 1.9 mg/dL (1.6-2.6); Phosphorus 2.9 mg/dL (2.4-5.1); Sodium 138 mmol/L (136-145)
[2024-08-22 07:44] LABS: Bilirubin, Total 0.9 mg/dL (0.2-1.0)
[2024-08-22 07:48] LABS: Alanine Aminotransferase 56 U/L (7-40); Alkaline Phosphatase 140 U/L (46-116); Aspartate Aminotransferase 47 U/L (13-40); Glucose 125 mg/dL (74-106); Potassium 3.2 mmol/L (3.5-5.1); Total Protein 8.3 g/dL (5.7-8.2)
[2024-08-22 08:00] VITALS: PULSE 120; RESP 16; O2SAT 98
[2024-08-22 10:48] VITALS: TEMP 36.1
--- NOTE | 2024-08-22 11:30 | DVHPNRES ---
Progress Note Date Seen: August 22, 2024 Resident Creating Document: INDRA AGUIRRE RESIDENT Has the PT tested + for MRSA If YES, has PT been informed?: No Medical Necessity Reason Pt with a Central, PICC or Fol: No Medical Necessity Reason History of Present Illness This is a 69-year-old male who is malnourished/ contracted to upper and lower extremities history of aneurysm, CHF, CVA, hyperlipidemia, hypertension, seizure and frequent UTI who was brought in by ambulance for malfunctioning of PEG tube as it was caught in something and the port/tip of the PEG tube was torn off. The patient is bed-bound, nonverbal, nonambulatory and a resident of a retirement facility but recently resides with his nephew. The patient is a poor historian unable to answer any questions when asked during assessment. The patient is currently in no distress, eyes open and able to squeeze hand when asked to. The patient will be admitted under hospitalist care to the medical- surgical unit. Consult with GI specialist has been initiated as current PEG two we will need to be removed and new one we will need to be placed. Unable to obtain further information from the patient regarding symptoms due to being nonverbal. The plan has been discussed with the primary RN in which questions and concerns have been addressed. Pmhx: CHF, HTN, hyperipidemia, CVA, recurrent UTI, Seizure, Aneurysm, Past Surgical History: Fourteen [place], 3-5 mL peg tube Family History: Unknown Social: Lives with Family PN 08/16/2024 Patient is a 69-year-old gentleman with significant history of CHF CVA hyperlipidemia recurrent UTI and seizures feet with PEG tube was brought to the ED because of PEG tube malfunctioning. Patient is nonverbal and non-ambulatory at baseline. He was resident at a retirement facility, but recently resides with his nephew. I was unable to get any information from the patient. Patient hears and responds with with a nod. Patient does not look to be in any form of distress. Currently pending GI consult for PEG tube replacement PN 08/18/2023: Patient is seen by surgery today. Malfunctioned G-tube was removed. Plan is to have a G-tube replacement in 24-48 hours per surgery. Patient is nonverbal at baseline was able to speak to the brother today and he said the last time the patient had any of his medication was before coming to the emergency room. We giving the patient some of the medications that can be given IV currently pain pending surgery for PEG tube replacement. Patient is notable to have a tachycardia no history of AFib noted currently patient is on telemetry. PN: 08/18/2024 Patient is seen and examined at the bedside today. Initially he was a little sleepy in the morning and not responding much. I checked his blood glucose and it was 140. He is also on 5 L of oxygen saturating around 96%. The afternoon, he was much more awake. When asked if he has any pain he pointed to his heard. He has chest tube and all feeding and medication will go through the NGT until the peg tube is replaced. Patient is likely to go for PEG replacement tomorrow and once that is done, He will be safe to go home. I made a call to the brother today to ask about the goal of care in terms of resuscitation goals. He did not answer. Thus, I left a message for him to give us a call back. PN: 08/19/2024 Patient is seen and examined at the bedside. He was sleeping at my visit this morning however later in the afternoon he was wide awake watching television he had no complaint. He was seen by surgery today and the PEG tube is replaced. Overall, he is fine. Will try using the peg tube and will discharge him arik home in the morning tomorrow. pn:08/21/2024 Patient was unable to live yesterday because his brother called last minute to say he does not have any oxygen at home so we needed to give him oxygen before he comes on. Right now patient is currently pending transportation to be discharged. PN: 08/22/2024 patient could not be picked up yesterday due to no transportation availability. I also spoke to the nephew moisés recommending hospice option. But he before patient became sick nonverbal and in this state, they had agreed that they would be take him to hospice. Per social service, Pt to be picked up @12:30pm by [email or web address] [phone]. Subjective Review of Systems Unable to obtain review of system given his current condition. He is able to blink his eye or squeeze my hand for response Constitutional: frail HEENT: headache, Cardiovascular: unable to obtain Respiratory: unable to obtain GI: unable to obtain : unable to obtain Endocrine: unable to obtain Mark: unable to obtain Musculoskeletal: contracte Psych: unable to obtain Objective vital signs Vital Sign Date Time Temp Pulse Resp B/P (MAP) Pulse Ox O2 Delivery O2 Flow Rate FiO2 08/22/24 10:48 36.1 08/22/24 08:00 120 16 98 Nasal Cannula* 5 40 08/22/24 05:00 142/90 (107) Total Intake and Output 08/21/24 08/21/24 08/22/24 15:00 23:00 07:00 Intake Total 1034 ml Output Total 1300 ml Balance -1300 ml 1034 ml medications Current Medications Medications Dose Ordered Sig/Ajith Route Start Time Stop Time Status Last Admin Dose Admin Sodium Chloride 1,000 ml @ 60 mls/hr [id number] IV 08/15/24 15:15 08/21/24 04:57 60 MLS/HR Enoxaparin Sodium 40 mg DAILY SC 08/17/24 10:00 08/22/24 10:26 40 MG Acetaminophen/ Hydrocodone Bitart 1 tab QID PRN PO 08/17/24 09:00 Cancel Lorazepam 1 mg Q5MINP PRN IV 08/17/24 09:30 Amino Acids 0 ml @ 0 mls/hr PER PHARMACY IV 08/17/24 09:30 Levetiracetam 100 ml @ 400 mls/hr BID IV 08/17/24 22:00 08/21/24 23:58 400 MLS/HR Diagnostic Test (Pha) 1 strip Q6HR 08/17/24 12:00 08/22/24 05:31 1 STRIP Insulin Human Regular FOLLOW SLIDING SCALE Q6HR SC 08/17/24 12:00 08/22/24 05:36 4 UNITS Dextrose 50 ml UD IV 08/17/24 11:15 Acetaminophen/ Hydrocodone Bitart 1 tab Q6HPRN PRN NG 08/18/24 16:15 08/22/24 06:13 1 TAB Gabapentin 100 mg BID NG 08/18/24 22:00 08/22/24 10:26 100 MG Atorvastatin Calcium 20 mg HS NG 08/18/24 22:00 08/21/24 22:32 20 MG Fat Emulsion Intravenous 200 ml/Potassium Acetate 20 meq/ Potassium Phosphate 66 meq/ Magnesium Sulfate 16 meq/ Multivitamins 10 ml/Chromium/ Copper/Manganese/ Zinc 1 ml/Amino Acids/Dextrose/ Purified Water 2,340 ml @ 97 mls/hr Q24H8M IV 08/21/24 22:00 08/22/24 21:59 08/21/24 23:57 97 MLS/HR Purified Water 250 ml QID GT 08/21/24 22:00 08/22/24 05:30 250 ML Enteral Nutritional Formula 240 ml QID GT 08/21/24 22:00 Examination General Appearance: Sleeping but arousable, Cooperative, No acute distress, c achetic HEENT: Atraumatic, Respiratory: on 5L of oxygen spo2 96% Cardiovascular: Regular rate, Normal S1, Normal S2, No murmurs, no chest wall tenderness Abdominal: no tenderness, bowel sounds present, no scars noted, PEG tube replaced Extremities: contracted Skin: No rashes, No significant lesion Neuro: Nonambulatory Psych/Mental Status: unable to asses laboratory and microbiology Laboratory Tests 08/22/24 05:38 08/21/24 06:12 Test 08/22/24 05:38 Range/Units Serum Glucose 125 H 74-106 mg/dL Microbiology Date/Time Source Procedure Growth Status 08/20/24 09:35 Stool Stool Culture - Preliminary Resulted 08/20/24 09:35 Stool Shiga Toxin I & II - Final Resulted 08/17/24 02:30 Nose MRSA Screen - Final Complete Problem List/Assessment/Plan Problem List/Assessment/Plan Assessment/Plan Failure to thrive Severe protein calorie malnutrition PEG tube malfunction, PEG tube in place however the tip of the PEG tube where the ports are has been torn. --> tip turn off --> IV hydration -->placement of PEG tube tomorrow --> Please notify patient nephew to obtain nutritional supplementation brand and schedule a feeding--start after GI specialist clearance once PEG tube fixed Hypokalemia --> replaced with IV potassium rider with lidocaine Multiple Sacral decubitus ulcer stage 3/4 -->Wound consult --> full thickness wounds with no measurable depth noted on patient's sacrum (8x8cm) and R Lower Buttock (6x3cm) over pink collagen scar tissue. Acute on chronic respiratory failure --->on 5L of oxygen spo2 96 % Bed-bound Normal verbal Hypercholesterolemia Chronic Systolic vs diastolic CHF Uncontrolled hypertension History of seizures HF, HTN, hyperipidemia, CVA, History of recurrent UTI Seizure History aneurysm Fleet enema Assess for skin breakdown/turn q.2h hours Reconcile home med-- given via NG TUBE. Called his brother Moisés to update him DVT prophylaxis PUD prophylaxis Goal of care discussed with the nurse for more than 16 minute: Full code Discussed with DR. Fuentes Plan discussed with: Other My Orders My Orders Orders - INDRA AGUIRRE Procedure Category Date Status Time * Applications Development Analyst CONS 08/21/24 Transmitted Consult Discharge DISCHARGE 08/22/24 Transmitted 17:20 Dietary Evaluation Review Recommendations by RD: Increase Calorie Intake, PPN/TPN Comments: 1) TPN to meet at least 75% estimated needs 2) If GI is accessible, TF Jevity 1.2Cal @ 60ml/hr. Start @ 20ml/hr, increase 10ml/hr Q4H until goal is reached. Water flush 150ml Q6H TF @ goal volume provides 1728 kcal (101%) 80gm protein (108%) 1162ml free water 3) River 1 pk BID, Vit C 500mg BID, Zince sulfate 220mg daily x 10 days, MVI w/ minerals 1 tab daily 4) Continue current POC Expected Outcomes/Goals: Pt meets 75% estimated needs within 7 days FU 2-3 days Interpretation of weight loss: >20% in 1 year Body Fat Depletion (Severe): Mod to Severe Depletion Muscle Mass (Severe): Mod to Severe Depletion Protein Calorie Malnutrition: Severe Is there a minimum of two crit: Yes Date of Service: August 22, 2024 Billing Provider: MARILEE ARROYO MD Common Visit Codes: [id number] INP/OBS CARE(HIGH) INDRA AGUIRRE August 22, 2024 11:30 MARILEE ARROYO MD August 30, 2024 02:59
--- NOTE | 2024-08-22 11:42 | DVHPN2 ---
Progress Note Date Seen: August 22, 2024 Has the PT tested + for MRSA If YES, has PT been informed?: No Medical Necessity Reason Pt with a Central, PICC or Fol: No Objective vital signs Vital Sign Date Time Temp Pulse Resp B/P (MAP) Pulse Ox O2 Delivery O2 Flow Rate FiO2 08/22/24 10:48 36.1 08/22/24 08:00 120 16 98 Nasal Cannula* 5 40 08/22/24 05:00 142/90 (107) Total Intake and Output 08/21/24 08/21/24 08/22/24 15:00 23:00 07:00 Intake Total 1034 ml Output Total 1300 ml Balance -1300 ml 1034 ml medications Current Medications Medications Dose Ordered Sig/Ajith Route Start Time Stop Time Status Last Admin Dose Admin Sodium Chloride 1,000 ml @ 60 mls/hr [id number] IV 08/15/24 15:15 08/21/24 04:57 60 MLS/HR Enoxaparin Sodium 40 mg DAILY SC 08/17/24 10:00 08/22/24 10:26 40 MG Acetaminophen/ Hydrocodone Bitart 1 tab QID PRN PO 08/17/24 09:00 Cancel Lorazepam 1 mg Q5MINP PRN IV 08/17/24 09:30 Amino Acids 0 ml @ 0 mls/hr PER PHARMACY IV 08/17/24 09:30 Levetiracetam 100 ml @ 400 mls/hr BID IV 08/17/24 22:00 08/21/24 23:58 400 MLS/HR Diagnostic Test (Pha) 1 strip Q6HR 08/17/24 12:00 08/22/24 05:31 1 STRIP Insulin Human Regular FOLLOW SLIDING SCALE Q6HR SC 08/17/24 12:00 08/22/24 05:36 4 UNITS Dextrose 50 ml UD IV 08/17/24 11:15 Acetaminophen/ Hydrocodone Bitart 1 tab Q6HPRN PRN NG 08/18/24 16:15 08/22/24 06:13 1 TAB Gabapentin 100 mg BID NG 08/18/24 22:00 08/22/24 10:26 100 MG Atorvastatin Calcium 20 mg HS NG 08/18/24 22:00 08/21/24 22:32 20 MG Fat Emulsion Intravenous 200 ml/Potassium Acetate 20 meq/ Potassium Phosphate 66 meq/ Magnesium Sulfate 16 meq/ Multivitamins 10 ml/Chromium/ Copper/Manganese/ Zinc 1 ml/Amino Acids/Dextrose/ Purified Water 2,340 ml @ 97 mls/hr Q24H8M IV 08/21/24 22:00 08/22/24 21:59 08/21/24 23:57 97 MLS/HR Purified Water 250 ml QID GT 08/21/24 22:00 08/22/24 05:30 250 ML Enteral Nutritional Formula 240 ml QID GT 08/21/24 22:00 laboratory and microbiology Laboratory Tests 08/22/24 05:38 08/21/24 06:12 Test 08/22/24 05:38 Range/Units Serum Glucose 125 H 74-106 mg/dL Microbiology Date/Time Source Procedure Growth Status 08/20/24 09:35 Stool Stool Culture - Preliminary Resulted 08/20/24 09:35 Stool Shiga Toxin I & II - Final Resulted 08/17/24 02:30 Nose MRSA Screen - Final Complete Problem List/Assessment/Plan Problem List/Assessment/Plan AFEBRILE VSS ABD SOFT G TUBE SIZE 16 F PLACED WITHOUT ANY COMPLICATION, BULB INFLATED WITH 5 CC SALINE G TUBE PLACEMENT DONE AT BEDSIDE NURSE AT BEDSIDE GASTROGRAFIN STUDY FOR G TUBE PLACEMENT CONFIRMATION NO COMPLICATION Plan discussed with: Other Dietary Evaluation Review Recommendations by RD: Increase Calorie Intake, PPN/TPN Comments: 1) TPN to meet at least 75% estimated needs 2) If GI is accessible, TF Jevity 1.2Cal @ 60ml/hr. Start @ 20ml/hr, increase 10ml/hr Q4H until goal is reached. Water flush 150ml Q6H TF @ goal volume provides 1728 kcal (101%) 80gm protein (108%) 1162ml free water 3) River 1 pk BID, Vit C 500mg BID, Zince sulfate 220mg daily x 10 days, MVI w/ minerals 1 tab daily 4) Continue current POC Expected Outcomes/Goals: Pt meets 75% estimated needs within 7 days FU 2-3 days Interpretation of weight loss: >20% in 1 year Body Fat Depletion (Severe): Mod to Severe Depletion Muscle Mass (Severe): Mod to Severe Depletion Protein Calorie Malnutrition: Severe Is there a minimum of two crit: Yes REBECCA WILKERSON MD August 22, 2024 11:42
--- NOTE | 2024-08-22 11:45 | DVHPN2 ---
Progress Note Date Seen: August 21, 2024 Has the PT tested + for MRSA If YES, has PT been informed?: No Medical Necessity Reason Pt with a Central, PICC or Fol: No Objective vital signs Vital Sign Date Time Temp Pulse Resp B/P (MAP) Pulse Ox O2 Delivery O2 Flow Rate FiO2 08/22/24 10:48 36.1 08/22/24 08:00 120 16 98 Nasal Cannula* 5 40 08/22/24 05:00 142/90 (107) Total Intake and Output 08/21/24 08/21/24 08/22/24 15:00 23:00 07:00 Intake Total 1034 ml Output Total 1300 ml Balance -1300 ml 1034 ml medications Current Medications Medications Dose Ordered Sig/Ajith Route Start Time Stop Time Status Last Admin Dose Admin Sodium Chloride 1,000 ml @ 60 mls/hr [id number] IV 08/15/24 15:15 08/21/24 04:57 60 MLS/HR Enoxaparin Sodium 40 mg DAILY SC 08/17/24 10:00 08/22/24 10:26 40 MG Acetaminophen/ Hydrocodone Bitart 1 tab QID PRN PO 08/17/24 09:00 Cancel Lorazepam 1 mg Q5MINP PRN IV 08/17/24 09:30 Amino Acids 0 ml @ 0 mls/hr PER PHARMACY IV 08/17/24 09:30 Levetiracetam 100 ml @ 400 mls/hr BID IV 08/17/24 22:00 08/21/24 23:58 400 MLS/HR Diagnostic Test (Pha) 1 strip Q6HR 08/17/24 12:00 08/22/24 05:31 1 STRIP Insulin Human Regular FOLLOW SLIDING SCALE Q6HR SC 08/17/24 12:00 08/22/24 05:36 4 UNITS Dextrose 50 ml UD IV 08/17/24 11:15 Acetaminophen/ Hydrocodone Bitart 1 tab Q6HPRN PRN NG 08/18/24 16:15 08/22/24 06:13 1 TAB Gabapentin 100 mg BID NG 08/18/24 22:00 08/22/24 10:26 100 MG Atorvastatin Calcium 20 mg HS NG 08/18/24 22:00 08/21/24 22:32 20 MG Fat Emulsion Intravenous 200 ml/Potassium Acetate 20 meq/ Potassium Phosphate 66 meq/ Magnesium Sulfate 16 meq/ Multivitamins 10 ml/Chromium/ Copper/Manganese/ Zinc 1 ml/Amino Acids/Dextrose/ Purified Water 2,340 ml @ 97 mls/hr Q24H8M IV 08/21/24 22:00 08/22/24 21:59 08/21/24 23:57 97 MLS/HR Purified Water 250 ml QID GT 08/21/24 22:00 08/22/24 05:30 250 ML Enteral Nutritional Formula 240 ml QID GT 08/21/24 22:00 laboratory and microbiology Laboratory Tests 08/22/24 05:38 08/21/24 06:12 Test 08/22/24 05:38 Range/Units Serum Glucose 125 H 74-106 mg/dL Microbiology Date/Time Source Procedure Growth Status 08/20/24 09:35 Stool Stool Culture - Preliminary Resulted 08/20/24 09:35 Stool Shiga Toxin I & II - Final Resulted 08/17/24 02:30 Nose MRSA Screen - Final Complete Problem List/Assessment/Plan Problem List/Assessment/Plan AFEBRILE VSS ABD SOFT G TUBE SIZE 16 F PLACED WITHOUT ANY COMPLICATION, BULB INFLATED WITH 5 CC SALINE G TUBE PLACEMENT DONE AT BEDSIDE NURSE AT BEDSIDE NO COMPLICATION ALLOW TUBE FEEDS TIN ABD BINDER TO SECURE G TUBE PLACEMENT Plan discussed with: Other Dietary Evaluation Review Recommendations by RD: Increase Calorie Intake, PPN/TPN Comments: 1) TPN to meet at least 75% estimated needs 2) If GI is accessible, TF Jevity 1.2Cal @ 60ml/hr. Start @ 20ml/hr, increase 10ml/hr Q4H until goal is reached. Water flush 150ml Q6H TF @ goal volume provides 1728 kcal (101%) 80gm protein (108%) 1162ml free water 3) River 1 pk BID, Vit C 500mg BID, Zince sulfate 220mg daily x 10 days, MVI w/ minerals 1 tab daily 4) Continue current POC Expected Outcomes/Goals: Pt meets 75% estimated needs within 7 days FU 2-3 days Interpretation of weight loss: >20% in 1 year Body Fat Depletion (Severe): Mod to Severe Depletion Muscle Mass (Severe): Mod to Severe Depletion Protein Calorie Malnutrition: Severe Is there a minimum of two crit: Yes REBECCA WILKERSON MD August 22, 2024 11:45
[2024-08-22] MEDS: POTASSIUM EFFERVESENT TAB 25 MEQ PEG ONE (11:49)
== END 2024-08-22 12:09 | disposition home health service (06) | DRG 252 ==
LOC: EDBD 10:12 → ER 10:12 → EDUNIT# 10:12 → OVERFLOW 15:09 → WEST WING 08-16 21:21 → TELE-WESTW 08-17 16:14 → WEST WING 08-19 10:09 → TELE-WESTW 08-19 12:10 → TELE-CENTR 08-19 22:29
PROVIDERS: ADMIT Student in an Organized Health Care Education/Training Program; ATTEND Student in an Organized Health Care Education/Training Program
PROC: 0D20XUZ Change Feeding Device in Upper Intestinal Tract, External Approach (ICD-10-PCS; principal; 2024-08-17)
DX: K94.23 Gastrostomy malfunction (principal); J96.01 Acute respiratory failure with hypoxia; E43 Unspecified severe protein-calorie malnutrition; L89.154 Pressure ulcer of sacral region, stage 4; I11.0 Hypertensive heart disease with heart failure; I50.42 Chronic combined systolic (congestive) and diastolic (congestive) heart failure; G40.909 Epilepsy, unspecified, not intractable, without status epilepticus; E87.6 Hypokalemia; J98.11 Atelectasis; E78.5 Hyperlipidemia, unspecified; R62.7 Adult failure to thrive; Z74.01 Bed confinement status; Z82.49 Family history of ischemic heart disease and other diseases of the circulatory system; Z87.440 Personal history of urinary (tract) infections; Z88.8 Allergy status to other drugs, medicaments and biological substances; Z79.899 Other long term (current) drug therapy; Z86.79 Personal history of other diseases of the circulatory system; Z86.73 Personal history of transient ischemic attack (TIA), and cerebral infarction without residual deficits; Z68.1 Body mass index [BMI] 19.9 or less, adult
CPT/HCPCS: 36415; 43762; 71045; 74018; 74176; 80048; 80053; 81001; 82040; 82247; 82962; 83605; 83735; 83880; 84100; 84478; 84484; 85025; 85048; 87045; 87081; 87427; G0378; J1815; J2003; J2470; J7060